=== PATIENT | male | born 1930 | race Caucasian/White ===

== ENCOUNTER 2016-05-21 09:24 | Inpatient (IN) | payer OTHER ==
[2016-05-21] MEDS ORDERED: NS 1,000 ML IV PRN (10:10)
[2016-05-21] MEDS ORDERED: NS 500 ML IV ONE (10:14)
--- NOTE | 2016-05-21 10:15 | PROVIDER DOCUMENTATION ---
HPI-General Adult - General Chief Complaint: Abnormal Lab[s] Stated Complaint: SENT BY MD FOR EVAL/LOW BLOOD Time Seen by Provider: 05/21/16 09:52 Source: patient Allergies/Adverse Reactions: Patient Allergies Allergy/AdvReac Type Severity Reaction Status Date / Time No Known Allergies Allergy Verified 05/21/16 09:42 Home Medications: Home Medication List Medication Instructions Recorded Confirmed Last Taken Type No Home Medications 05/21/16 05/21/16 Unknown History - History of Present Illness -Gen Adult Nature of Presenting Problems: Patient is a 85 y/o M that presents to the ER per request of PCP due to having abnormal labs. Patient had labs draw outpatient yesterday. NA 124, K+5.4, H&H of 6.6 and 20.2. Patient reports being dizzy of late and having diarrhea, denies chest pain or shortness of breath Location of Pain/Injury: reports: none Pain Radiation: reports: no radiation Quality of Pain: reports: none Severity: reports: moderate Onset/Duration: reports: unsure Timing: reports: constant Context/Activities at Onset: reports: none Modifying Factors: improves with: nothing Associated Symptoms: reports: diarrhea. denies: chest pain, fever/chills, genitourinary problems, nausea, shortness of breath, vomiting Similar Symptoms Previously?: Yes Recently seen or treated by another doctor?: Yes Review of Systems - Adult - REVIEW OF SYSTEMS - ADULT Constitutional: denies: chills, fever Eyes: denies: decreased vision, blurred vision, double vision Ears, Nose, Mouth & Throat: denies: ear pain, sinus problem, throat pain Cardiovascular: denies: chest pain, orthopnea, palpitations, syncope Respiratory: denies: dyspnea on exertion, shortness of breath, wheezing Gastrointestinal: reports: diarrhea, rectal bleeding. denies: abdominal pain, nausea, vomiting Genitourinary: reports: no symptoms reported Musculoskeletal: reports: no symptoms reported Integumentary: reports: no symptoms reported Neurological: reports: dizziness/vertigo. denies: headache/migraines, syncope Psychiatric: reports: no symptoms reported Endocrine: reports: no symptoms reported Hematologic/Lymphatic: reports: low blood count. denies: easy bruising Allergic/Immunologic: reports: no symptoms reported All Other Systems: Reviewed and Negative Past History - Adult - PAST MEDICAL HISTORY-ADULT Review of Records: reports: Old Records Reviewed, Nursing Assessment Review, Medications Reviewed Cardiovascular: reports: HTN Gastrointestinal: reports: GI bleed, ulcer Genitourinary: reports: prostate cancer - PRIOR SURGERIES/PROCEDURES Surgical/Procedure History: reports: reviewed, not pertinent - IMMUNIZATION STATUS Childhood Immunizations: See Nurse Assessment Flu Vaccine: See Nurse Assessment - FAMILY HISTORY Family History: reviewed, not pertinent - SOCIAL HISTORY Smoking: non-smoker Living Situation: family Physical Exam-General - PHYSICAL EXAM-ADULT Initial Vital Signs Reviewed: Yes - CONSTITUTIONAL General Appearance: alert, no apparent distress - EYES Eyes: PERRL/EOMI, pale conjunctivae - HEAD, EARS, NOSE, MOUTH & THROAT HENMT: normocephalic/atraumatic, moist mucous membranes, normal ENT inspection - NECK Neck: full range of motion, normal inspection - RESPIRATORY Respiratory: lungs clear, normal breath sounds, no respiratory distress, no accessory muscle use - CARDIOVASCULAR Cardiovascular: tachycardia, systolic murmur (2) - GASTROINTESTINAL (ABDOMEN) Abdominal Exam: normal bowel sounds, non tender, soft, no organomegaly, no pulsatile mass - GENITOURINARY Rectal Exam: blood streaked stool, other (bright red blood (liquid)) - MUSCULOSKELETAL Extremity: normal range of motion, normal inspection, no pedal edema - SKIN Integumentary: warm/dry, pallor - NEUROLOGIC Neurologic: grossly normal, no motor/sensory deficits - PSYCHIATRIC Psych/Mental Status: normal mood/affect, normal thought content, normal thought process, oriented x 3 Progress - PLAN OF CARE/RESULTS Progress/Plan/Lab Results: plan of care-labs, fluids, type and screen one unit of PRBC 1125-hospitalist paged Vital Signs Temp Pulse Resp BP Pulse Ox 05/21/16 10:58 82 93/57 100 05/21/16 09:44 54 L 14 123/49 05/21/16 09:32 98.1 F 103 H 18 88/42 No Known Allergies Allergy (Verified 05/21/16 09:42) No Home Medications 05/21/16 Laboratory 05/21/16 05/21/16 05/21/16 09:47 09:47 09:47 WBC RBC Hgb Hct MCV MCH MCHC RDW Std Deviation Plt Count MPV Immature Gran % (Auto) Neut % (Auto) Lymph % (Auto) [place] % (Auto) Eos % (Auto) Baso % (Auto) Immature Gran # (Auto) Neut # (Auto) Lymph # (Auto) [place] # (Auto) Eos # (Auto) Baso # (Auto) PT INR PTT (Actin FS) Sodium Potassium Chloride Carbon Dioxide Anion Gap BUN Creatinine Estimated GFR/1.73 m2 BUN/Creatinine Ratio Glucose Calculated Osmolality Calcium Iron 12 L TIBC 238 % Saturation 5 Unsat Iron Binding 226 Total Bilirubin AST ALT Alkaline Phosphatase Total Protein Albumin Globulin Albumin/Globulin Ratio Amylase 38 Lipase 19 Blood Type O NEGATIVE Antibody Screen NEGATIVE Crossmatch See Detail 05/21/16 05/21/16 05/21/16 09:47 09:47 09:47 WBC 8.71 RBC 2.38 L Hgb 7.0 L Hct 21.4 L MCV 89.9 MCH 29.4 MCHC 32.7 L RDW Std Deviation 14.4 Plt Count 434 H MPV 9.1 Immature Gran % (Auto) 0.6 H Neut % (Auto) 73.4 Lymph % (Auto) 9.4 L [place] % (Auto) 14.5 H Eos % (Auto) 2.0 Baso % (Auto) 0.1 Immature Gran # (Auto) 0.05 H Neut # (Auto) 6.40 Lymph # (Auto) 0.82 L [place] # (Auto) 1.26 H Eos # (Auto) 0.17 Baso # (Auto) 0.01 PT 12.2 H INR 1.15 PTT (Actin FS) 37.9 H Sodium 127 L Potassium 5.0 Chloride 90 L Carbon Dioxide 17 L Anion Gap 20 BUN 49 H Creatinine 2.6 H Estimated GFR/1.73 m2 24 BUN/Creatinine Ratio 19 Glucose 44 L Calculated Osmolality 265 Calcium 8.8 Iron TIBC % Saturation Unsat Iron Binding Total Bilirubin 0.44 AST 21 ALT 10 Alkaline Phosphatase 140 H Total Protein 6.6 Albumin 2.9 L Globulin 3.7 Albumin/Globulin Ratio 0.8 Amylase Lipase Blood Type Antibody Screen Crossmatch Orders Category Date Time Status Cardiac Monitoring DIRECTED Care 05/21/16 10:13 Active Misc. NRSG Communication Order DIRECTED Care 05/21/16 10:11 Active Saline Loc DIRECTED Care 05/21/16 10:10 Active Transfuse .Give-Transfuse Care 05/21/16 10:11 Active AMYLASE [CHEM] Stat Lab 05/21/16 09:47 Completed CBC WITH ELECTRONIC DIFF [HEME] Stat Lab 05/21/16 09:47 Completed COMPREHENSIVE METABOLIC PANEL [CHEM] Stat Lab 05/21/16 09:47 Completed FERRITIN Routine Lab 05/21/16 09:47 Received FOLATE Routine Lab 05/21/16 11:46 Ordered LIPASE [CHEM] Stat Lab 05/21/16 09:47 Completed LRPC (RED CELLS) [BBK] Stat Lab 05/21/16 09:47 Results OCCULT BLOOD SCREENING [STOOL] Stat Lab 05/21/16 10:03 Completed PROTIME WITH INR [COAG] Stat Lab 05/21/16 09:47 Completed PTT [COAG] Stat Lab 05/21/16 09:47 Completed TYPE & SCREEN [BBK] Stat Lab 05/21/16 09:47 Results UIBC W TOTAL IRON [CHEM] Routine Lab 05/21/16 09:47 Completed UR CREAT RANDOM [URCHEM] Stat Lab 05/21/16 11:51 Uncollected UR SODIUM [URCHEM] Stat Lab 05/21/16 11:51 Uncollected URINALYSIS W/POSS RFLX CULT [URINALYSIS] Stat Lab 05/21/16 11:51 Uncollected VITAMIN B12 Routine Lab 05/21/16 09:47 Received 0.9% Sodium Chloride Inj [Ns] 1,000 ml Med 05/21/16 10:10 Active IV 125 mls/hr 0.9% Sodium Chloride Inj [Ns] 500 ml Med 05/21/16 10:14 Discontinued IV 999 mls/hr 0.9% Sodium Chloride Inj [Ns] 80 ml Med 05/21/16 11:30 Active Pantoprazole [Protonix] 80 mg IV 10 mls/hr Dextrose 5%-0.45% NaCl Inj [D5 1/2 Ns] 500 ml Med 05/21/16 11:27 Active IV 100 mls/hr Dextrose 50% Syringe [D50w Syringe] Med 05/21/16 11:15 Discontinued 25 ml IV NOW ONE Dextrose 50% Syringe [D50w Syringe] Med 05/21/16 11:26 Discontinued 25 ml IV NOW ONE Sucralfate [Carafate Liquid] Med 05/21/16 14:00 Active 1 gm PO Q6H Pulse Oximetry Stat Oth 05/21/16 10:13 Active EKG [EKG] Stat Ther 05/21/16 10:13 Ordered - CONSULTS/PCP/HOSPITALIST Notification #1 *Consult/PCP/Hospitalist*: hospitalist Time Discussed: 12:21 Consult Disposition: Will see in ED, Admit Departure - Departure Time of Disposition Order: 12:20 DIAGNOSIS: Lower GI bleed, Hypoglycemia, Renal insufficiency Anemia Qualifiers: Anemia type: other cause Other causes of anemia: other cause, not classified Qualified Code(s): D64.89 - Other specified anemias Hypotension Qualifiers: Hypotension type: other hypotension type Qualified Code(s): I95.89 - Other hypotension Disposition: ADMITTED INPATIENT 09 Certified Medical Emergency: Emergent Condition: Stable Referrals: Kathi Liu MD [Primary Care Provider] - - Critical Care Note Total Time (mins): 40 Critical Care Statement: This patient required my direct personal management to treat or rule out processes, the absence of which, could potentiallly result in sudden, clinically significant life or limb threatening deterioration. Attestation - Scribe Verification/Attestation Scribe:: Leoncio Bruno Acting as Scribe for:: Patrick Branham Scribe documention review:: This chart was documented by a scribe and accurately reflects the service the provider performed and the decisions made by the provider. Physician Attestation - Physician Attestation I, the provider, attest to the following statement:: Patrick Branham Physician documentation Attestation:: This documentation recorded by the scribe accurately reflects the service I personally performed and the decisions made by me.
[2016-05-21 10:36] LABS: BASO% 0.1 % (0.0-0.8); EOS# 0.17 X1000 (0.0-0.7); HEMATOCRIT 21.4 % (42.0-52.0); IMM GRAN# 0.05 X1000 (0.0-0.04); IMM GRAN% 0.6 % (0.0-0.5); LYMPH# 0.82 X1000 (1.2-3.4); LYMPH% 9.4 % (20.5-51.1); MANUAL DIFF NEEDED? NO; MCH 29.4 PG (27-31); MCHC 32.7 g/dL (33-37); MCV 89.9 FL (81-99); MONO# 1.26 X1000 (0.11-0.59); MONO% 14.5 % (1.7-9.3); MPV 9.1 FL (7.4-10.4); NEUT% 73.4 % (42.2-75.2); PLT 434 X1000 (130-400); RBC 2.38 XMIL (4.7-6.1)
[2016-05-21 10:42] LABS: INR 1.15; PROTIME 12.2 Seconds (9.2-11.7); PTT 37.9 Seconds (22.0-36.0)
[2016-05-21 11:10] LABS: ALBUMIN 2.9 g/dL (3.5-5.0); CALCIUM 8.8 mg/dL (8.8-10.2); TOTAL BILIRUBIN 0.44 mg/dL (0.20-1.00); TOTAL PROTEIN 6.6 g/dL (6.3-8.3)
[2016-05-21] MEDS ORDERED: D50W SYRINGE IV ONE ×2 (11:15→11:26)
[2016-05-21] MEDS ORDERED: D5 1/2 NS 500 ML IV ONE (11:27)
[2016-05-21 12:12] LABS: AMYLASE 38 U/L (20-200); LIPASE 19 U/L (13-60)
[2016-05-21] MEDS: PROTONIX 80 MG in NS 80 ML IV SCH ×2 (12:13→22:23)
[2016-05-21 12:15] LABS: IRON SATURATION 5 %; TIBC 238 ug/dL; TOTAL IRON 12 ug/dL (53-167); UNBOUND IRON 226 ug/dL (112-346)
[2016-05-21] MEDS ORDERED: D50W SYRINGE IV PRN (12:32)
[2016-05-21 13:03] LABS: FERRITIN 129 ng/mL (30-400)
[2016-05-21 13:25] LABS: URINE SOURCE CATH
[2016-05-21 13:29] LABS: BILIRUBIN URINE NEGATIVE (NEGATIVE); BLOOD URINE TRACE (NEGATIVE); GLUCOSE URINE NEGATIVE (NEGATIVE); LEUKOCYTES URINE MODERATE (NEGATIVE); NITRITE URINE POSITIVE (NEGATIVE); PH URINE 5.5; PROTEIN URINE TRACE mg/dL (NEGATIVE); SP GRAVITY URINE 1.005; TURBIDITY URINE HAZY (CLEAR); UROBILINOGEN URINE NORMAL (NORMAL)
[2016-05-21 13:31] LABS: URINE MICRO REVIEW NEEDED? YES
--- NOTE | 2016-05-21 13:36 | Diag Imaging Result Document ---
PROCEDURE NAME: ABDOMEN/PELVIS W/O CONTRAST - 05/21/2016 CT RENAL STONE SEARCH WITHOUT CONTRAST: TECHNIQUE: A dose reduction protocol was used. COMPARISON: No comparison exam. FINDINGS: There is no evidence of hydronephrosis. There is no renal stone identified. There are multiple bilateral renal lesions. The largest lesion arises at the upper left kidney and measures 5.3 cm. Most of these lesions are of low-density and are suggestive of cysts. A few lesions are mildly hyperdense. There is a suprapubic catheter which extends into the urinary bladder. The urinary bladder pantoja appear irregularly thickened with hazy external margins. The possibility of urinary bladder cystitis cannot be excluded. There is no evidence of bowel obstruction. There is apparent wall thickening along the descending colon with haziness of surrounding fat, suspicious for colitis. This may extend to the proximal portion of the sigmoid colon. There is mild diverticulosis at the sigmoid colon but there is no indication of diverticulitis. There is no abscess identified. There is no free air seen. There are a couple small calcified gallstones in the dependent portion of gallbladder. Gallbladder is borderline distended, but there is no pericholecystic inflammation identified. There is borderline retroperitoneal adenopathy. There are lumbar spine degenerative changes and bilateral L5 pars interarticularis defects noted. There are calcified pleural plaques noted at the base of the chest. IMPRESSION: 1. No evidence of renal stone or hydronephrosis. 2. Multiple bilateral renal lesions, most of which likely represent cysts. Follow-up renal ultrasound is recommended. 3. Suprapubic catheter extending into the urinary bladder. Diffuse irregular thickening of urinary bladder pantoja with hazy external margins. The possibility of urinary bladder cystitis cannot be excluded. 4. Descending colitis. No abscess. No free air. 5. Couple of small gallstones in gallbladder. No pericholecystic inflammation. 6. Borderline retroperitoneal adenopathy. 7. Lumbar spine degenerative changes and bilateral L5 pars interarticularis defects noted.
[2016-05-21 13:41] LABS: UR CREAT RANDOM 54.1 mg/dL (14-26)
--- NOTE | 2016-05-21 13:57 | HISTORY AND PHYSICAL ---
PRIMARY CARE PROVIDER: Dr. Liu. PRIMARY UROLOGIST: Dr. Guthrie. CHIEF COMPLAINT: Dizziness. HISTORY OF PRESENT ILLNESS: Mr. Obrien is an 85-year-old male. He is in no acute distress. He is able answer most questions appropriately. He has a past medical history of duodenal ulcer, hypertension, prostate cancer with radiation treatment, and CKD , who apparently has been having some spells of dizziness. He went to his primary care provider who ran laboratory studies. In the laboratory studies it showed that he had a low hemoglobin and hematocrit, low sodium level, a high potassium level with signs of dehydration, and he was instructed to come here to seek further treatment. He appears very pale in color. A stool sample that was obtained showed that it was positive for occult blood. Hemoglobin and hematocrit here on admission shows a hemoglobin of 7 and hematocrit 21. Blood pressure is somewhat on the lower side , reading anywhere from 80s to 90s. He also had a low blood sugar. During the lab work it was 44 and on fingerstick it was 22. He has received an amp of D50. Apparently he also has a suprapubic catheter that the patient states has had a significant amount of blood, although on observation the urine is mildly darker but not hematuric. The patient also states he has had a 30 pound weight loss over the last year, decreased appetite with nausea and vomiting when he tries to eat. The last time he ate was yesterday. He also states that he has bad diarrhea but he states that it is also brown in color. He denies having blood in his stool or black tarry stools. Denies fever or chills. Denies pain. His abdomen is soft, nondistended. The suprapubic cath site is mildly red around the insertion site but does not appear to be infected. He is wearing a diaper that has no signs of blood. We will consult GI for GI work up. Start him on a Protonix drip. We will consult Dr. Guthrie with urology who has been seeing him with his suprapubic catheter. Transfuse 2 units of blood. We will transfer him to [facility] given his blood pressures 80s to 90s systolic and this is likely secondary to dehydration. The patient has had some spells of dizziness that he states that causes blackness or blurriness in his eyes. He denies ever fully passing out. PAST MEDICAL HISTORY: Hypertension, prostate cancer with radiation treatment, peptic ulcer disease with a duodenal ulcer in the past, CKD stage 3. PAST SURGICAL HISTORY: [place] tooth extraction, prostate biopsy, vocal cord operation, placement of suprapubic catheter, has had some strictures in the urethra and bladder that were incised. SOCIAL HISTORY: Denies tobacco, alcohol, or illicit drug use. He also uses a walker or a cane to ambulate. FAMILY HISTORY: Noncontributory. REVIEW OF SYSTEMS: Fourteen point review of systems were complete and all were negative except for those mentioned in the above HPI. ALLERGIES: No known drug allergies. HOME MEDICATIONS: Currently none are listed. LABORATORY DATA: White blood cells 8,000, hemoglobin 7, hematocrit 21.4, platelet count 434,000. INR 1.15, PTT 37.9. Sodium 127, potassium 5.0, BUN 49, creatinine 2.6, glucose 44, calcium 8.8. Iron is 12, total iron binding capacity is 238, percent saturation is 5, unsaturated iron binding is 226. Total bilirubin 0.44, AST 21, ALT 10, alkaline phosphatase 140, albumin is 2.9. Amylase 38, lipase 19. Urinalysis pending. Urine sodium and urine creatinine pending. IMAGING: Abdominal and pelvic CT without contrast has been ordered and pending. PHYSICAL EXAMINATION: VITAL SIGNS: Temperature 98.1 degrees, heart rate 84, blood pressure 99/49, O2 saturation 100% on room air. He is 5 feet 8 inches tall, 170 pounds, BMI 25.8. GENERAL: Mr. Obrien is an 85-year-old male, who is in no acute distress. He is able to answer most questions appropriately. SKIN: Very pale. HEENT: Atraumatic, normocephalic. Pupils equal, round, reactive to light. Extraocular movements intact. NECK: No JVD or carotid bruits noted. CARDIOVASCULAR: S1, S2. Regular rate and rhythm. No rubs, gallops, murmurs. PULMONARY: Clear to auscultation. Bilateral breath sounds. No accessory muscle use or work of breathing noted. GI: Soft, nontender, nondistended. Positive bowel sounds x4. : Suprapubic catheter in place with dark clear yellow urine output per leg catheter bag. Insertion site mildly red but no signs of infection. EXTREMITIES: No edema noted. There are +2 dorsalis and radial pulses. NEUROLOGIC: A O x3. Moves all extremities equally. ASSESSMENT AND PLAN: 1. Acute blood loss anemia secondary to gastrointestinal bleed and possibly hematuria. He will receive 2 units of blood. We will consult Dr. Lino as he was the doctor that saw him in the past for a duodenal ulcer. Start him on a Protonix drip, Carafate. Keep him NPO for possible endoscopy and do serial hemoglobin and hematocrit. 2. History of prostate cancer, now with suprapubic catheter. He receives radiation treatments by Dr. Bynum as outpatient. Prostate is very enlarged. Patient states that he has had a significant amount of blood loss through his suprapubic catheter but there are no obvious signs of hematuria in the urine. We are awaiting urinalysis as it was not obtained on admission. So will obtain it now to evaluate blood count in the urine. We will also consult Dr. Guthrie as he is his urologist. 3. Severe protein calorie malnutrition. Apparently the man has lost 30 pounds over the last year. He states that he is unable to hold down food. It makes him nauseous and he throws it up. We will do a nutritional consult once he is able to start taking in p.o. Albumin level is low. 4. Diarrhea. Patient states that he has diarrhea and that it is normal in color , although stool sample that was obtained via the ER physician was bright red. So diarrhea is likely secondary to #1. 5. Acute kidney injury on chronic kidney disease stage 3. Likely secondary to dehydration. He will receive IV fluid hydration. 6. Hypoglycemia. Could be secondary to the fact that he has not eating. He states he last ate yesterday. There is no history of him having diabetes. Will check a hemoglobin A1c. He will be on D5W with normal saline drip. Will do q.2 hour blood glucoses and p.r.n. D50 as needed. 7. Hyponatremia secondary to dehydration. IV fluids. 8. Thrombocytosis. This is likely inflammatory. 9. Iron-deficiency anemia. 10. Deep venous thrombosis prophylaxis. SCDs. 11. Gastrointestinal prophylaxis. He is on a proton pump inhibitor drip. Patient seen and examined. Agree with BAYRON note. It reflects my assessment and plan. Dictated by BAYRON Blue for Javi Thurston MD [facility]
[2016-05-21 14:05] LABS: URINE CASTS NONE SEEN; URINE CRYSTALS NONE SEEN; URINE SMALL ROUND CELLS NONE SEEN
[2016-05-21 14:06] LABS: URINE CULTURE NEEDED? YES
[2016-05-21 14:12] LABS: COLOR STRAW
[2016-05-21 14:17] LABS: UR EPITHELIAL CELLS <10 /HPF (<10); URINE BACTERIA NEGATIVE /HPF; URINE RBC <10 /HPF (<10); URINE WBC 20-40 /HPF (<10)
[2016-05-21 14:44] LABS: HEMOGLOBIN A1C 4.4 % (4.8-6.0)
--- NOTE | 2016-05-21 14:44 | Diag Imaging Result Document ---
PROCEDURE NAME: CHEST-2 VIEWS - 05/21/2016 CHEST X-RAY, 2 VIEWS: COMPARISON: 08/01/2013. FINDINGS: There are similar appearing calcified pleural plaques. Otherwise, no focal infiltrates, pneumothorax, or pleural effusion. Heart size and pulmonary vascularity is normal. 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 No acute disease or change from prior.
[2016-05-21] MEDS ORDERED: D5 NS 1,000 ML IV ONE (16:09)
[2016-05-21] MEDS ORDERED: ZOFRAN IV PRN (16:09)
[2016-05-21 17:21] LABS: HEMATOCRIT 24.7 % (42.0-52.0); HEMOGLOBIN 8.3 g/dL (14.0-18.0)
[2016-05-21] MEDS: CARAFATE LIQUID PO SCH ×2 (17:52→20:40)
[2016-05-21] MEDS: ZOSYN 3.375 GM/NS 50 ML IV SCH ×2 (17:52→21:42)
--- NOTE | 2016-05-21 18:45 | ECHO REPORT ---
ORDER DATE: 05/21/2016 INTERPRETING PHYSICIAN: Dr. Barajas CLINICAL INDICATIONS: [id number]-old male with near syncope. M-MODE MEASUREMENTS: Right ventricle: 2.6 cm. Left ventricle end diastole: 5.1 cm. Left ventricle end systole: 3.2 cm. Posterior wall: 0.7 cm. Interventricular septum: 0.7 cm. Left atrium: 4.3 cm. Aortic root: 3.3 cm. SUMMARY OF 2-DIMENSIONAL IMAGING: This study appears to be technically difficult. Global left ventricular systolic function is normal. Ejection fraction estimated at 55 to 60%. Left atrium is borderline enlarged. Mitral valve shows mild degree of regurgitation. Pulse wave Doppler of mitral inflow is normal. Tissue Doppler of septal and lateral mitral annulus averages 10 cm. There is no diastolic dysfunction. The aortic valve looks grossly normal. Color flow mapping unremarkable. Tricuspid valve shows mild degree of regurgitation. Inferior vena cava appears to be mildly enlarged. Pulmonary pressure estimated to be in the range of 36 to 41 mmHg. Pulmonic valve looks normal. Color flow mapping unremarkable. There is no pericardial effusion, masses, or thrombus. Clinical correlation is recommended. [facility]
--- NOTE | 2016-05-21 19:40 | CONSULTATION ---
DATE OF CONSULTATION: 05/21/2016 ATTENDING AND REFERRING PHYSICIAN: Hospitalist. HISTORY OF PRESENT ILLNESS: This 85-year-old male was admitted with severe symptomatic anemia. The patient has been followed in the Urology Clinic for many years. He has a history of elevated PSA to 17.5. 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 He completed radiation therapy in May 2012. He was last seen in the Urology Clinic on 05/14/2016 and his PSA was 0.02. 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 He has undergone multiple cystoscopic exams with incision of the strictured areas and dilation in the clinic of these strictures. He decided to forego further dilations and had a suprapubic tube placed in February 2016. The patient states it is much better having the suprapubic tube. He states he has seen blood in the urine several times since then, but none for the last few days. He states he became very dizzy and disoriented and weak. He was seen by his family physician and sent to the emergency room. His hemoglobin was 7. He has a history of ulcer disease. The patient has been treated with multiple antibiotics over the last few months. A culture obtained in the Urology Clinic grew yeast. He was placed on Diflucan 50 mg a day which was completed about 2 weeks ago. When he was seen in the Urology Clinic last week, he felt he was doing well and did not feel weak or dizzy. PAST MEDICAL HISTORY: As noted in the HPI, hypertension, chronic kidney disease. PAST SURGICAL HISTORY: Transrectal prostate ultrasound and biopsies x2. Radiation therapy for prostate cancer. [place] teeth extraction. Vocal cord surgery. Direct visual internal urethrotomy, and placement of a suprapubic tube. CURRENT MEDICATIONS: Documented on the chart. SOCIAL HISTORY: No tobacco or alcohol use. ALLERGIES: No known drug allergies. REVIEW OF SYSTEMS: He states usually he is in good health. He denies any chest pains or pulmonary problems. He states his urine has been clear. He is not having any problems with the suprapubic tube. It was last changed on 05/14/2016 at his last Urology Clinic visit. He denies any problems with diabetes, strokes, or seizures. PHYSICAL EXAMINATION: General: A mildly obese, age apparent, normally developed, white male, oriented in all ways and cooperative. HEENT: Normal for age. Lungs: Clear. Cardiovascular: Regular rate and rhythm. Abdomen: Protuberant soft, nontender. No hepatosplenomegaly or masses. Normal bowel sounds. : Normal male. Both testes are down. Scrotal exam is normal. His suprapubic tube is in place draining straw-colored urine. Rectal: Deferred today. On 05/14, it revealed a firm, flat prostate consistent with previous radiation. Extremities: No clubbing, cyanosis, or edema. Neuro: No focal deficits. DIAGNOSTIC DATA: Laboratory evaluation latest hemoglobin after receiving a unit of blood was 8.3, hematocrit 24.7. Serum chemistries had a sodium of 127, potassium 5, chloride 90, bicarb of 17, BUN 49, creatinine 2.6. His baseline creatinine is around 1.5 to 1.6. Urinalysis had straw colored urine, positive nitrite, moderate leukocytes, 20-40 white cells. Less than 10 red cells, less than 10 epithelial cells. This urine is consistent with a chronic indwelling catheter. CT scan without contrast of the abdomen and pelvis revealed multiple low-density lesions in each kidney consistent with renal cysts, Possible colitis, diverticulosis, but no evidence of diverticulitis, indwelling suprapubic tube. IMPRESSION: 1. Severe symptomatic anemia. Etiology not clear. 2. Neurogenic bladder with suprapubic tube in place draining straw-colored urine. 3. Bilateral renal cysts. RECOMMENDATIONS: Recommend a gastrointestinal evaluation as is being done. Renal ultrasound. I will follow. Thank you for this consultation.
[2016-05-22] MEDS: CARAFATE LIQUID PO SCH ×4 (02:14→21:51)
--- NOTE | 2016-05-22 02:37 | HISTORY AND PHYSICAL ---
ADDENDUM REPORT: ASSESSMENT AND PLAN: Urinalysis is positive for urinary tract infection. Has nitrates in it. White blood cells, so will do Zosyn for now and follow up on the urine culture. Also, abdominal/pelvic CT showed that he had a descending colitis, so again, we will continue with Zosyn and will send off for stool for Clostridium difficile rule out. Dictated by BAYRON Blue for Javi Thurston MD
[2016-05-22] MEDS: ZOSYN 3.375 GM/NS 50 ML IV SCH ×4 (04:55→21:52)
[2016-05-22 05:48] LABS: BASO% 0.1 % (0.0-0.8); EOS# 0.02 X1000 (0.0-0.7); EOS% 0.3 % (0.0-10.0); HEMATOCRIT 24.9 % (42.0-52.0); HEMOGLOBIN 8.4 g/dL (14.0-18.0); IMM GRAN# 0.05 X1000 (0.0-0.04); IMM GRAN% 0.6 % (0.0-0.5); LYMPH# 0.56 X1000 (1.2-3.4); LYMPH% 7.1 % (20.5-51.1); MANUAL DIFF NEEDED? YES; MCH 29.3 PG (27-31); MCHC 33.7 g/dL (33-37); MCV 86.8 FL (81-99); MONO# 1.49 X1000 (0.11-0.59); MONO% 18.8 % (1.7-9.3); MPV 9.1 FL (7.4-10.4); NEUT% 73.1 % (42.2-75.2); PLT 410 X1000 (130-400); RBC 2.87 XMIL (4.7-6.1)
[2016-05-22 06:13] LABS: INR 1.2; PROTIME 12.7 Seconds (9.2-11.7); PTT 39.1 Seconds (22.0-36.0)
[2016-05-22 06:24] LABS: BANDS 8 % (0-1); LYMPHS 12 % (21-51); MONO 16 % (1-9)
[2016-05-22] MEDS: PROTONIX 80 MG in NS 80 ML IV SCH ×2 (06:41→21:53)
[2016-05-22 06:56] LABS: ALBUMIN 2.4 g/dL (3.5-5.0); POTASSIUM 4.2 mmol/L (3.5-5.1); TOTAL BILIRUBIN 0.73 mg/dL (0.20-1.00); TOTAL PROTEIN 5.8 g/dL (6.3-8.3)
[2016-05-22 06:58] LABS: MAGNESIUM 1.1 mg/dL (1.5-2.7)
--- NOTE | 2016-05-22 07:31 | EKG Report ---
Test Performed on : 05/22/2016 06:54:23 AM Test Reason : chest pain Blood Pressure : / mmHG Vent. Rate : 081 BPM Atrial Rate : 081 BPM P-R Int : 188 ms QRS Dur : 144 ms QT Int : 410 ms P-R-T Axes : 012 -18 069 degrees QTc Int : 476 ms Normal sinus rhythm. Left bundle branch block Abnormal ECG When compared with ECG of 01-NOV-2015 14:33, No significant change was found Confirmed by Mela BROWN, Jose Vinson ([id number]) on 05/24/2016 5:18:57 PM
--- NOTE | 2016-05-22 09:06 | Diag Imaging Result Document ---
PROCEDURE NAME: US RENAL 2 (RETROPER) COMPLETE - 05/22/2016 RENAL ULTRASOUND: FINDINGS: There are multiple cysts present in both kidneys. The largest on the right is 2.4 cm in diameter and on the left there is a 5.1-cm cyst over the upper pole. The right kidney is 10.2 x 4.4 x 5.47 cm. The left is 11.2 x 5 x 6.1 cm. There is no evidence of hydronephrosis. There are no demonstrated solid masses. Some of these lesions did demonstrate calcification in their pantoja on the CT scan of 05/21/2016, most notably the cyst posteriorly located on the left. This would be a Bosniak 2 lesion. IMPRESSION: No evidence of obstructive uropathy. Polycystic kidneys.
[2016-05-22] MEDS: CELEXA PO SCH (09:12)
[2016-05-22] MEDS ORDERED: MYLICON DROPS (DOSE) MISC ONE (13:32)
[2016-05-22] MEDS ORDERED: DIPRIVAN 1% ONE (14:03)
--- NOTE | 2016-05-22 14:05 | PROGRESS NOTE ---
DATE: 05/22/2016 SUBJECTIVE: Patient is feeling fine. Able to walk around with assistance. Denies any hematemesis or blood in the stools. Denies any sensation of lightheadedness. OBJECTIVE: Vital Signs: Temperature 97.7 degrees, heart rate 73, respiratory rate 18, blood pressure 107/50, O2 saturation 100% on room air. General examination: This is an 85-year-old male, lying in bed in no acute distress. HEENT: Head is normocephalic, atraumatic. Anicteric sclerae and pale conjunctivae. Mucous membranes moist. Neck: Supple. No JVD noted. No carotid bruits. No lymphadenopathy. No thyromegaly. Cardiovascular exam: S1, S2 heard. No murmurs, gallops, or rubs. Regular rate and rhythm. Respiratory exam: Clear bilaterally to auscultation. No work of breathing or using accessory muscles. Abdomen: Soft, nontender to palpation. Nondistended. Bowel sounds present. No organomegaly. Extremities: No clubbing, cyanosis, or edema. Peripheral pulses present in both legs. Genitourinary: Suprapubic catheter in place. Neurological exam: Patient able to move 4 extremities. Alert and oriented x3. LABORATORY DATA: White cell count 7.93, hemoglobin 8.4, hematocrit 24.9, platelets 410. Sodium 136, potassium 4.2, chloride 94, bicarbonate 34, creatinine 2.0. ASSESSMENT AND PLAN: 1. Acute blood loss anemia most probably secondary to gastrointestinal bleeding. The patient has received 2 units of blood. We are still waiting for the consultation from Dr. Lino. The patient is on Protonix and Carafate. He is on nothing by mouth in anticipation for possible procedure. We will continue checking complete blood count daily. 2. History of prostate cancer with suprapubic catheter. Patient has been evaluated by Dr. Guthrie here in the hospital. From his standpoint, he just recommends to have a renal ultrasound, which basically shows that everything is okay. 3. Severe protein calorie malnutrition. We will see what the note from gastroenterology has to say regarding endoscopy. 4. Diarrhea. That condition is stopped. 5. Acute on chronic kidney disease stage III. Actually, the creatinine is getting better. We will continue checking basic metabolic panel daily. 6. Hypoglycemia. Patient has been having low sugars even though he is not taking any medication. At this time, definitely will continue checking Accu-Chek every 4 hours. It seems like this condition is improving. 7. Iron deficiency anemia, aware.
--- NOTE | 2016-05-22 14:30 | OPERATIVE NOTE ---
PROCEDURE DATE: 05/22/2016 ATTENDING PHYSICIAN: Dr. Armstrong. TITLE OF PROCEDURE: Esophagogastroduodenoscopy with esophageal dilation. HISTORY OF PRESENT ILLNESS: 1. Melena. 2. Anemia. 3. Positive occult. 4. Anemia requiring 2 units of blood. 5. Previous history of peptic ulcer disease in the duodenal bulb in 2015 status post cautery by Dr. Lino. 6. UTI currently on treatment. 7. Evidence of descending colitis and negative C. difficile toxin on workup. POSTOPERATIVE DIAGNOSES: 1. Normal proximal middle esophagus. 2. Schatzki's ring in distal esophagus which was dilated with 52-Japanese García dilator. 3. Z-line was at 40 cm. 4. Hiatal hernia cms sliding type 5. Mild gastrin in gastric antrum. 6. Normal fundus, cardia, incisura. 7. Normal duodenal bulb and second portion of the duodenum. No evidence of active bleeding, fresh or old blood noted in entire EGD. ESTIMATED BLOOD LOSS: None. COMPLICATIONS: None. ANESTHESIA: Monitored anesthesia care per the anesthesiologist. SPECIMEN: None. After informed consent, the patient explained the risks, benefits, indications, alternatives of the procedure for EGD. The risks of the procedure including infection, bleeding , pain, trauma to site of perforation explained to the patient among others and he acknowledged and agreed to proceed. The patient also was turned in the left lateral position and a bite block was placed. After adequate monitoring, the scope was then all the way to the second portion of the esophagus and it was normal. Proximal 3rd distal revealed evidence of Schatzki's ring causing resistance of the scope. The Z-line was at 40 cm. There was evidence of a 2 cm sliding hiatal hernia. Colon showed evidence of erythema in the gastric antrum suggesting mild gastritis. Retroflexion revealed normal fundus, cardia, incisura. The scope was then removed showing normal bulb and second portion. There was no evidence of any active bleeding, fresh or old blood or any evidence of any ulcers or AVMs noted. The scope was withdrawn into the stomach. The air was aspirated as the scope withdrawn. The patient underwent García dilation with 52-Japanese successfully. The patient tolerated this well and left the OR in stable condition. I discussed findings with the patient's family (Daughter) by phone and all questions were answered. RECOMMENDATIONS: 1. The patient will be following gastroesophageal reflux life changes. 2. The patient will be on Protonix once daily for 3 months for gastritis and reflux disease and then wean down to Zantac 150 mg at bedtime as needed. 3. Will keep the patient on clear liquid diet and start him on GoLYTELY and schedule for colonoscopy tomorrow. This will be to evaluate the patient's anemia requiring blood transfusion and evidence of DC colitis on imaging. 4. Further recommendations to follow pending this. MTDD
[2016-05-22] MEDS ORDERED: GOLYTELY PO ONE (14:45)
[2016-05-22] MEDS ORDERED: XYLOCAINE-MPF 2% ONE (14:46)
[2016-05-22] MEDS ORDERED: PHENERGAN IV PRN (17:29)
[2016-05-22] MEDS ORDERED: SODIUM CHLORIDE 0.9% INJ PRN (17:29)
[2016-05-23] MEDS: CARAFATE LIQUID PO SCH ×4 (01:59→22:28)
[2016-05-23] MEDS: ZOSYN 3.375 GM/NS 50 ML IV SCH ×4 (04:03→22:29)
[2016-05-23] MEDS: PROTONIX 80 MG in NS 80 ML IV SCH (08:30)
[2016-05-23] MEDS ORDERED: MYLICON DROPS (DOSE) MISC ONE (09:57)
[2016-05-23] MEDS ORDERED: DIPRIVAN 1% ONE (10:22)
[2016-05-23] MEDS ORDERED: XYLOCAINE-MPF 2% ONE (10:37)
[2016-05-23 11:01] LABS: MANUAL DIFF NEEDED? NO
[2016-05-23 11:02] LABS: BASO% 0.5 % (0.0-0.8); EOS# 0.08 X1000 (0.0-0.7); EOS% 1.3 % (0.0-10.0); HEMATOCRIT 27.7 % (42.0-52.0); HEMOGLOBIN 9.5 g/dL (14.0-18.0); IMM GRAN# 0.08 X1000 (0.0-0.04); IMM GRAN% 1.3 % (0.0-0.5); LYMPH# 0.73 X1000 (1.2-3.4); LYMPH% 11.8 % (20.5-51.1); MCH 29.9 PG (27-31); MCHC 34.3 g/dL (33-37); MCV 87.1 FL (81-99); MONO# 0.85 X1000 (0.11-0.59); MONO% 13.8 % (1.7-9.3); MPV 8.9 FL (7.4-10.4); NEUT% 71.3 % (42.2-75.2); PLT 459 X1000 (130-400); RBC 3.18 XMIL (4.7-6.1)
[2016-05-23] MEDS: CELEXA PO SCH (11:03)
[2016-05-23 11:26] LABS: CALCIUM 8.5 mg/dL (8.8-10.2); POTASSIUM 3.9 mmol/L (3.5-5.1)
--- NOTE | 2016-05-23 15:29 | PROGRESS NOTE ---
DATE: 05/23/2016 SUBJECTIVE: Patient reports feeling fine. Denies any abdominal pain, any blood in the stools or vomiting blood. OBJECTIVE: Vital Signs: Temperature 98.1 degrees, heart rate 67, respiratory rate 17, blood pressure 113/45, O2 saturation 100% on room air. General Examination: This is an 85-year-old male, lying in bed in no acute distress. HEENT: Head is normocephalic, atraumatic. Anicteric sclerae and pale conjunctivae. Mucous membranes moist. Neck: Supple. No JVD noted. No carotid bruits. No lymphadenopathy. No thyromegaly. Cardiovascular exam: S1, S2 heard. No murmurs, gallops, or rubs. Regular rate and rhythm. Respiratory exam: Clear bilaterally to auscultation. No work of breathing or using accessory muscles. Abdomen: Soft, nontender to palpation. Nondistended. Bowel sounds present. No organomegaly. Extremities: No clubbing, cyanosis, or edema. Peripheral pulses present in both legs. Neurological exam: Patient able to move 4 extremities. Alert and oriented x3. LABORATORY DATA: White cell count 6.17, hemoglobin 9.5, hematocrit 27.7, platelets of 459. BMP shows creatinine 1.4. ASSESSMENT AND PLAN: 1. Anemia secondary to possible gastrointestinal bleeding. Patient has been evaluated by Dr. Melendez. Patient underwent upper endoscopy as per Dr. Melendez, and then he did fine. Normal duodenal bulb. No evidence of active bleeding or fresh or old blood noted in the entire esophagogastroduodenoscopy. They did a colonoscopy today; the report is still pending. Hemoglobin has been stable so far since admission. Patient has received 2 units of blood so far. At this point, if hemoglobin is stable tomorrow we may let him go and if colonoscopy is okay too. 2. History of prostate cancer with suprapubic catheter. The patient has been evaluated by Dr. Guthrie from urology, and he is stable from his standpoint. 3. Severe protein calorie malnutrition. At least the upper endoscopy did not show anything to justify this problem. We will follow the recommendations. We will monitor this patient closely. 4. Acute on chronic kidney disease stage III. Creatinine continues to improve. We will continue checking basic metabolic panel daily. 5. Hypoglycemia. Glucose is back to normal. Patient is not on any anti diabetic medications oral. We will continue now with checking Accu-Chek before meals and also at bedtime. 6. Iron-deficiency, aware.
--- NOTE | 2016-05-23 16:19 | OPERATIVE NOTE ---
PROCEDURE DATE: 05/23/2016 PROCEDURE: Ileocolonoscopy with colonic biopsy. PREOPERATIVE DIAGNOSES: 1. Melena. 2. Anemia. 3. History of prostate cancer, status post radiation and suprapubic catheter by Dr. Guthrie. 4. History of new onset of colitis seen on CT scan in the left colon. 5. Negative esophagogastroduodenoscopy. 6. History of peptic ulcer disease in 2014. POSTOPERATIVE DIAGNOSES: 1. Normal terminal ileum. 2. Diverticulosis in the colon in the left side more than the right side. 3. Colitis starting in the transverse colon, and extending all the way to the sigmoid colon in the form of superficial ulcerations, colonic mucosal edema, and erythema, status post biopsy ulcer for CMV colitis. 4. 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 ESTIMATED BLOOD LOSS: Minimal. COMPLICATIONS: None. ANESTHESIA: Monitored anesthesia care per the anesthesiology service. SPECIMENS: Left colonic biopsies sent to surgical pathology to evaluate for CMV colitis. DESCRIPTION OF PROCEDURE: After informed consent from the patient, explaining the risks, benefits, indications, alternatives of the procedure to the patient. The patient prepared for colonoscopy. The risks of the procedure, including infection, bleeding, pain, trauma to the surrounding structures, perforation, and were explained to the patient among others and he acknowledged understanding and agreed to proceed. The patient was brought to the OR, turned in the left lateral position. Rectal exam was performed, which revealed normal rectal tone, no masses felt, and no blood on the examining finger. After adequate monitored anesthesia care, the lower scope introduced to the anal orifice, traversed all the way to the terminal ileum. The terminal ileum appeared normal. The cecum and ascending colon appeared normal. The colitis started in the proximal transverse colon in the form of colonic edema and superficial ulcerations, but it became more extensive in the descending colon with more confluent ulcerations and mucosal edema and erythema. This was biopsied, evaluated for CMV colitis. This ended abruptly at the sigmoid colon. In the rectum, there was evidence of erythema, AVMs, erosions, and contact oozing suggesting radiation proctitis. There was evidence of some ulcerations at the anal area or in the distal rectum area, also at the site of proctitis. The air was removed as the scope withdrawn. The patient tolerated the procedure well is currently monitored in the OR in stable condition. Of note, we also saw some scattered polyps in the colon, which were not removed as the patient is anemic and has colitis. The patient was stable and is currently monitored in the OR in stable condition. Discussed with patient's daughter by phone and all questions were answered. RECOMMENDATIONS: 1. The patient will be on GI soft diet. 2. The patient will be on iron-C 1 capsule p.o. b.i.d. for 3 months. 3. The patient will be on Centrum Silver 1 capsule p.o. once daily. 4. The patient will be on diverticulosis diet. Avoid corn, nuts, seeds in the diet. 5. The patient will benefit from fiber like Metamucil once daily. 6. Patient will follow up with our clinic in 4 weeks of discharge to review the colonic biopsies. 7. We will start him on Anusol HC cream for rectal b.i.d. 8. May need APC of Radiation proctitis if continues to be Anemic. 9. Further recommendations to follow. MTDD
[2016-05-23] MEDS: ANUSOL-HC CREAM PR SCH (22:27)
[2016-05-23] MEDS: ICAR-C PO SCH (22:28)
[2016-05-23] MEDS: CULTURELLE PO SCH (22:29)
[2016-05-24] MEDS: CARAFATE LIQUID PO SCH ×2 (01:55→11:24)
[2016-05-24 05:42] LABS: MANUAL DIFF NEEDED? NO
[2016-05-24] MEDS: ZOSYN 3.375 GM/NS 50 ML IV SCH ×2 (05:43→12:28)
[2016-05-24 06:09] LABS: CALCIUM 8.3 mg/dL (8.8-10.2); POTASSIUM 3.4 mmol/L (3.5-5.1)
[2016-05-24 06:52] LABS: BASO% 0.3 % (0.0-0.8); EOS# 0.07 X1000 (0.0-0.7); EOS% 1.1 % (0.0-10.0); HEMATOCRIT 25.9 % (42.0-52.0); HEMOGLOBIN 8.7 g/dL (14.0-18.0); IMM GRAN# 0.11 X1000 (0.0-0.04); IMM GRAN% 1.7 % (0.0-0.5); LYMPH# 1.04 X1000 (1.2-3.4); LYMPH% 15.6 % (20.5-51.1); MCH 29.6 PG (27-31); MCHC 33.6 g/dL (33-37); MCV 88.1 FL (81-99); MONO# 0.93 X1000 (0.11-0.59); MPV 9.1 FL (7.4-10.4); NEUT% 67.3 % (42.2-75.2); PLT 496 X1000 (130-400); RBC 2.94 XMIL (4.7-6.1)
[2016-05-24] MEDS ORDERED: SODIUM CHLORIDE 0.9% INJ SCH (09:00)
[2016-05-24] MEDS ORDERED: CENTRUM SILVER PO SCH (09:00)
[2016-05-24] MEDS ORDERED: PROTONIX IV SCH (09:00)
[2016-05-24] MEDS: CULTURELLE PO SCH (11:15)
[2016-05-24] MEDS: CELEXA PO SCH (11:16)
[2016-05-24] MEDS: ICAR-C PO SCH (11:16)
[2016-05-24] MEDS: ANUSOL-HC CREAM PR SCH (11:23)
[2016-05-24 11:39] VITALS: BP 105/52
--- NOTE | 2016-05-24 15:58 | Carotid Study ---
DATE: 05/22/2016 PROCEDURE: Bilateral carotid ultrasound study. REQUESTING PHYSICIAN: Dr. Andersen INTERPRETING PHYSICIAN: Segundo Adorno MD [employer] CE[employer]ING INSTALLER: Urvashi INDICATIONS: Near syncope. DESCRIPTION OF PROCEDURE: Bilateral duplex and color flow imaging of the carotid arteries was performed using a [employer] Vivid E9 ultrasound system with a 9L-D transducer. OBSERVED DATA RIGHT LEFT Brachial Blood Pressure Carotid Pulse Bruits: Carotid/Sub DIAGRAM OF ULTRASOUND IMAGING R L RIGHT INT EXT INT EXT LEFT Oc (cm/s) Oc (cm/s) Subclavian 87/6 Subclavian 79/4 CCA Proximal 60/9 CCA Proximal 70/4 CCA Distal 51/8 CCA Distal 65/9 Bulb 64/11 Bulb 53/7 ICA Proximal 198/54 ICA Proximal 62/15 ICA Mid 143/55 ICA Mid 88/22 ICA Distal 104/33 ICA Distal 102/25 ECA 64/0 ECA 64/0 Vertebral 51/8, antegrade flow Vertebral 37/3, antegrade flow ICA/CCA Ratio 3.30 ICA/CCA Ratio 1.45 % Stenosis 60 to 79% % Stenosis 0 to 39% FINDINGS: Severe stenosis on the right carotid artery at the level of the carotid bulb extending into the internal carotid. This produces a stenosis of 60 to 79%. On the left side, there is no hemodynamically significant flow-limiting stenosis, although there is atherosclerosis. Both vertebral arteries are antegrade flow. INTERPRETATION: Severe stenosis noted in the right carotid artery from the carotid bulb into the internal carotid producing a stenosis of 60 to 79%. There is no hemodynamically significant flow- limiting stenosis noted on the left. Both vertebral arteries are antegrade flow.
--- NOTE | 2016-05-24 22:44 | DISCHARGE SUMMARY ---
ADMISSION DATE: 05/21/2016 DISCHARGE DATE: 05/24/2016 CONSULTATIONS: 1. Bruce Guthrie M.D., Urology. 2. Gordon Melendez M.D., Gastroenterology. PERTINENT PROCEDURES: 1. Abdomen and pelvis CT showed no evidence of renal stone or hydronephrosis, multiple bilateral renal lesions which most likely represent renal cysts, suprapubic catheter extending into the urinary bladder, possibility of bladder cystitis could not be ruled out, descending colitis, no abscess, no free air, a couple of small gallstones in the gallbladder, no pericholecystic inflammation, borderline retroperitoneal adenopathy, lumbar spine degenerative changes with bilateral L5 pars interarticularis defects noted. 2. Renal ultrasound showed no evidence of obstructive uropathy, polycystic kidneys. 3. Echocardiogram showed an EF of 55-60%. 4. Ileocolonoscopy with colonic biopsy performed by Dr. Melendez. 5. Esophagogastroduodenoscopy with esophageal dilatation performed by Dr. Melendez. DISCHARGE DIAGNOSES: 1. Anemia secondary to possible GI bleeding. The patient has been evaluated by Gastroenterology and underwent an upper and lower GI. No evidence of bleeding or flecks of blood noted. Patient is status post 2 units of packed red blood cells. Hemoglobin and hematocrit are stable. 2. History of prostate cancer with a suprapubic catheter. Evaluated by Dr. Guthrie from Urology. Stable from his standpoint. 3. Severe protein calorie malnutrition. The patient is to continue a GERD lifestyle diet as well as avoiding nuts, seeds and to increase his fiber daily. 4. Hypoglycemia resolved secondary to malnutrition. The patient will do Accu- Cheks before meals and at bedtime. 5. Iron deficiency anemia. Aware. HOSPITAL COURSE: Mr. Obrien is an 85- male who has a past medical history of prostate cancer with radiation treatment status post suprapubic catheter, hypertension, peptic ulcer disease, duodenal ulcer in the past and chronic kidney disease stage 3. Patient went to his primary care physician and ran laboratory studies. They revealed a low hemoglobin and hematocrit, low sodium as well as a high potassium level found with dehydration. He was instructed to come to the ED to seek further treatment. He appeared very pale in color. Stool sample that was obtained showed that it was Hemoccult-positive. Hemoglobin and hematocrit on admission here was 7 and 21. Blood pressure was somewhat on the lower side reading anywhere from the 80s to 90s. He did have a low blood sugar. It was 44 in the lab and 22 by fingerstick. He received an amp of D50. He also stated that he had seen a significant amount of blood in his suprapubic catheter. On observation the urine was mildly dark darker but not hematuria. The patient had a 30 pounds weight loss over the year, decreased appetite, nausea, vomiting when he tries to eat. His suprapubic catheter was mildly red around the insertion site, it did not appear to be infected. Patient was started on Protonix drip. GI as well as Urology were consulted. The patient was transfused with 2 units of blood. He was admitted to the ICU where they could monitor his blood pressures were closely. He was started on IV fluids secondary to his dehydration. Dr. Guthrie stated from his standpoint he was stable and signed off. Patient did undergo an EGD with esophageal dilatation with Dr. Melendez. Patient is to follow GERD lifestyle changes as well as continue Protonix once daily for 3 months and then wean down to Zantac 150 at bedtime. Patient was placed back on a clear liquid diet, then started him on GoLYTELY and then he was scheduled for a colonoscopy with Dr. Melendez with biopsy. He was placed on Icar- C for 3 months; Centrum Silver; follow a diverticulosis diet to avoid corn, nuts, and seeds in the diet; start Metamucil once a day; and we will see the patient in clinic in 4 weeks to review the biopsies; start him on Anusol Cream b.i.d.; and may need APC of radiation proctitis if he continues to be anemic. 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 Patient was started on antibiotics. He will be discharged home on p.o. antibiotics. DISCHARGE DIET: GI soft, to follow GERD lifestyle changes as well as diverticulosis with avoidance of nuts and seeds. VITAL SIGNS AT TIME OF DISCHARGE: Temperature 98.2 degrees, heart rate 70, respirations 18, blood pressure 105/52, O2 is 94% on room air. DISCHARGE MEDICATIONS: 1. HBr 10 mg p.o. daily. 2. Anusol HC cream per rectum b.i.d. 3. Centrum Silver 1 each p.o. daily. 4. Icar-C 1 each p.o. b.i.d. for 3 months. 5. Metamucil daily. 6. Levaquin 500 mg p.o. daily. 7. He will also need to be on Protonix once daily for 3 months for gastritis and reflux, and then wean down to Zantac 150 mg p.o. at bedtime. FOLLOWUP: 1. The patient is being discharged home. 2. He can follow up with his primary care physician, Dr. Liu, in 1 week. 3. He can follow up with Dr. Melendez as previously stated. 4. He can return to the ED for any worsening of symptoms. DISCHARGE TIME: 35 minutes. Dictated by BAYRON Espino for Javi Thurston MD MTDD
--- NOTE | 2016-06-07 17:05 | DISCHARGE SUMMARY ---
ADMISSION DATE: 05/21/2016 DISCHARGE DATE: 05/24/2016 DISCHARGE SUMMARY ADDENDUM: ANSWER: Colitis.
== END 2016-05-24 15:55 | disposition home or self-care (01) | DRG 391 ==
LOC: ED 09:24 → EDIPHOLD 13:24 → 3S 15:48 → 4N 05-23 12:33
PROVIDERS: ATTEND Internal Medicine
PROC: 30233N1 Transfusion of Nonautologous Red Blood Cells into Peripheral Vein, Percutaneous Approach (ICD-10-PCS; 2016-05-21)
PROC: 0D738ZZ Dilation of Lower Esophagus, Via Natural or Artificial Opening Endoscopic (ICD-10-PCS; principal; 2016-05-22 13:13)
DX: K52.9 Noninfective gastroenteritis and colitis, unspecified (principal); E43 Unspecified severe protein-calorie malnutrition; N17.9 Acute kidney failure, unspecified; E86.0 Dehydration; N39.0 Urinary tract infection, site not specified; D62 Acute posthemorrhagic anemia; E87.1 Hypo-osmolality and hyponatremia; E16.1 Other hypoglycemia; K52.0 Gastroenteritis and colitis due to radiation; K51.20 Ulcerative (chronic) proctitis without complications; R19.5 Other fecal abnormalities; N28.1 Cyst of kidney, acquired; N31.9 Neuromuscular dysfunction of bladder, unspecified; I12.9 Hypertensive chronic kidney disease with stage 1 through stage 4 chronic kidney disease, or unspecified chronic kidney disease; N18.3 Chronic kidney disease, stage 3 (moderate); D50.9 Iron deficiency anemia, unspecified; D47.3 Essential (hemorrhagic) thrombocythemia; K22.2 Esophageal obstruction; K55.20 Angiodysplasia of colon without hemorrhage; K29.70 Gastritis, unspecified, without bleeding; K57.30 Diverticulosis of large intestine without perforation or abscess without bleeding; K44.9 Diaphragmatic hernia without obstruction or gangrene; K21.9 Gastro-esophageal reflux disease without esophagitis; Z79.899 Other long term (current) drug therapy; Z87.11 Personal history of peptic ulcer disease; Z92.3 Personal history of irradiation; Z85.46 Personal history of malignant neoplasm of prostate; Z68.25 Body mass index [BMI] 25.0-25.9, adult
CPT/HCPCS: 36415; 36430; 71020; 74176; 76770; 80048; 80053; 81001; 82150; 82270; 82570; 82607; 82728; 82746; 82948; 83036; 83540; 83550; 83690; 83735; 84300; 84443; 85014; 85018; 85025; 85027; 85610; 85730; 86850; 86900; 86901; 86920; 87077; 87088; 87186; 87324; 88305; 88313; 93005; 93010; 93306; 93880; 96365; 96366; 96368; 96375; C9113; J2405; J2543; J2550; J7030; J7040; J7042; P9016; 97116-GP; 97530-GP; S0164

== ENCOUNTER 2016-07-03 09:59 | Inpatient (IN) ==
[2016-07-03] MEDS ORDERED: NS 1,000 ML IV ONE ×2 (10:53→12:33)
--- NOTE | 2016-07-03 11:15 | PROVIDER DOCUMENTATION ---
HPI-Male Problem - General Chief Complaint: Male Stated Complaint: bleed Time Seen by Provider: 07/03/16 10:43 Source: patient Allergies/Adverse Reactions: Patient Allergies Allergy/AdvReac Type Severity Reaction Status Date / Time No Known Allergies Allergy Verified 07/03/16 12:44 Home Medications: Home Medication List Medication Instructions Recorded Confirmed Last Taken Type Citalopram Hydrobromide 10 mg PO DAILY 05/21/16 07/03/16 07/03/16 History [Citalopram HBr] Hydrocortisone 2.5% Cream [address] BID #1 tube 05/24/16 07/03/16 07/03/16 Rx [Anusol-Hc Cream] Inulin [Metamucil] 330.6 gm PO DAILY #1 powder 05/24/16 07/03/16 Unknown Rx Iron Carbonyl/Ascorbic Acid 1 each PO BID #60 tablet 05/24/16 07/03/16 07/03/16 Rx [Icar-C] Levofloxacin [Levaquin] 500 mg PO DAILY #7 tablet 05/24/16 07/03/16 07/03/16 Rx Multivitamins/Minerals [Centrum 1 each PO DAILY #30 tablet 05/24/16 07/03/1603/09 Rx Silver] Pantoprazole Sodium [Protonix] 40 mg PO DAILY #30 tablet. 05/24/16 07/03/16 Rx - History of Present Illness-Male Nature of Presenting Problem: 85 y/o WM c hx of prostate cancer, has a suprapubic catheter in place due to neurogenic bladder, CKD, HTN, duodenal ulcer c/o dizziness, weakness, and bleeding from the catheter site for 2 and a half weeks. Saw the nurse for his urologist yesterday and they sent him home. Saw PCP 2 weeks ago, and had good bill of health. States she has also has generalized abdominal pain and 3-4 episodes of diarrhea daily. Fever of Tmax 101 F this morning, took two 325 mg of Tylenol prior to arrival. Denies chest pain or sob. Dizziness worse with standing. States bleeding both in the urine and around the catheter site. Not currently receiving any chemo or radiation since last admission. Not currently taking blood thinners. Admittedon 05/21/16 with similar symptoms, released on 05/24. 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 Patient reports 30 lb weight loss over the past year, and does not feel like his appetite has increased since the last admission. Patient is followed by Dr. Guthrie, urologist. Review of Systems - Adult - REVIEW OF SYSTEMS - ADULT Constitutional: reports: see HPI, fever, fatique, weight loss. denies: chills Eyes: reports: no symptoms reported. denies: decreased vision, blurred vision, double vision, eye pain Ears, Nose, Mouth & Throat: reports: no symptoms reported. denies: ear pain, nose pain, throat pain Cardiovascular: reports: no symptoms reported. denies: chest pain, irregular heart rate, palpitations Respiratory: reports: no symptoms reported. denies: cough, shortness of breath Gastrointestinal: reports: see HPI, abdominal pain, diarrhea, nausea, poor appetite. denies: vomiting Genitourinary: reports: no symptoms reported. denies: dysuria, discharge, frequency, incontinence Musculoskeletal: reports: no symptoms reported. denies: muscle aches Integumentary: reports: no symptoms reported. denies: rash Neurological: reports: no symptoms reported. denies: headache/migraines Psychiatric: reports: no symptoms reported Endocrine: reports: no symptoms reported Hematologic/Lymphatic: reports: no symptoms reported Allergic/Immunologic: reports: no symptoms reported All Other Systems: Reviewed and Negative Past History - Adult - PAST MEDICAL HISTORY-ADULT Review of Records: reports: Old Records Reviewed, Nursing Assessment Review, Medications Reviewed Major Childhood Illnesses: reports: denies history Cardiovascular: reports: HTN Respiratory: reports: denies history Gastrointestinal: reports: GI bleed, ulcer Obstetrical/Gynecological: reports: denies history Genitourinary: reports: kidney disease, prostate cancer, other (suprapubic catheter) Musculoskeletal: reports: denies history Neurological: reports: denies history Endocrine/Immune: reports: denies history Other Conditions: reports: denies history - PRIOR SURGERIES/PROCEDURES Surgical/Procedure History: reports: reviewed, not pertinent - IMMUNIZATION STATUS Childhood Immunizations: See Nurse Assessment Flu Vaccine: See Nurse Assessment - FAMILY HISTORY Family History: reviewed, not pertinent - SOCIAL HISTORY Smoking: denies Substance Use: none/never Alcohol Use Frequency: never Physical Exam-General - PHYSICAL EXAM-ADULT Initial Vital Signs Reviewed: Yes - CONSTITUTIONAL General Appearance: alert, thin - EYES Eyes: PERRL/EOMI, pale conjunctivae - HEAD, EARS, NOSE, MOUTH & THROAT HENMT: normocephalic/atraumatic - NECK Neck: non-tender, full range of motion, supple, normal inspection - RESPIRATORY Respiratory: chest non-tender, lungs clear, normal breath sounds, no pleuratic chest pain, no respiratory distress, no accessory muscle use. negative: respiratory distress, decreased breath sounds, accessory muscle use, crackles, rales, rhonchi, wheezing - CARDIOVASCULAR Cardiovascular: normal peripheral pulses, no edema, no gallop, no murmur, tachycardia - GASTROINTESTINAL (ABDOMEN) Abdominal Exam: normal bowel sounds, soft, no organomegaly, no pulsatile mass, tenderness (generalized) - LYMPHATIC Lymphatic: no adenopathy - MUSCULOSKELETAL Extremity: normal range of motion Peripheral Pulses: dorsalis-pedis (R): 2+, dorsalis-pedis (L): 2+ - SKIN Integumentary: normal color, normal turgor, warm/dry - NEUROLOGIC Neurologic: grossly normal, no motor/sensory deficits - PSYCHIATRIC Psych/Mental Status: normal mood/affect, normal thought content, normal thought process, oriented x 3 Progress - PLAN OF CARE/RESULTS Progress/Plan/Lab Results: Vital Signs - 8 hr 07/03/16 10:38 07/03/16 13:04 Temperature 99.4 F Pulse Rate 104 H Respiratory Rate 16 Blood Pressure 89/47 112/71 O2 Sat by Pulse Oximetry 100 07/03/16 12:21 Stool Occult Blood (ALIVIA) - Final Stool Laboratory Results - last 24 hr 07/03/16 07/03/16 07/03/16 11:04 11:04 11:04 WBC 8.35 RBC 2.37 L Hgb 7.4 L Hct 21.7 L MCV 91.6 MCH 31.2 H MCHC 34.1 RDW Std Deviation 18.0 H Plt Count 195 MPV 9.2 Immature Gran % (Auto) 0.4 Neut % (Auto) 79.2 H Lymph % (Auto) 9.8 L [place] % (Auto) 10.4 H Eos % (Auto) 0.1 Baso % (Auto) 0.1 Immature Gran # (Auto) 0.03 Neut # (Auto) 6.61 H Lymph # (Auto) 0.82 L [place] # (Auto) 0.87 H Eos # (Auto) 0.01 Baso # (Auto) 0.01 Sodium 126 L Potassium 5.0 Chloride 90 L Carbon Dioxide 20 L Anion Gap 16 BUN 39 H Creatinine 2.2 H Estimated GFR/1.73 m2 29 BUN/Creatinine Ratio 18 Glucose 91 Calculated Osmolality 262 Calcium 8.5 L Total Bilirubin 0.65 AST 19 ALT 7 L Alkaline Phosphatase 87 Total Protein 6.2 L Albumin 2.7 L Globulin 3.5 Albumin/Globulin Ratio 0.8 Urine Source Urine Color Urine Turbidity Urine pH Ur Specific [place] Urine Protein Ur Glucose (Stick) Ur Ketones (Stick) Urine Blood Urine Nitrite Urine Bilirubin Urobilinogen Dipstick Urine Leukocytes Urine WBC (Auto) Urine RBC (Auto) U Epithel Cells (Auto) Urine Bacteria (Auto) Blood Type O NEGATIVE Antibody Screen NEGATIVE 07/03/16 12:25 WBC RBC Hgb Hct MCV MCH MCHC RDW Std Deviation Plt Count MPV Immature Gran % (Auto) Neut % (Auto) Lymph % (Auto) [place] % (Auto) Eos % (Auto) Baso % (Auto) Immature Gran # (Auto) Neut # (Auto) Lymph # (Auto) [place] # (Auto) Eos # (Auto) Baso # (Auto) Sodium Potassium Chloride Carbon Dioxide Anion Gap BUN Creatinine Estimated GFR/1.73 m2 BUN/Creatinine Ratio Glucose Calculated Osmolality Calcium Total Bilirubin AST ALT Alkaline Phosphatase Total Protein Albumin Globulin Albumin/Globulin Ratio Urine Source CLEAN CATCH Urine Color RED Urine Turbidity TURBID Urine pH 7.0 Ur Specific [place] 1.021 Urine Protein 100 A Ur Glucose (Stick) NEGATIVE Ur Ketones (Stick) NEGATIVE Urine Blood LARGE A Urine Nitrite POSITIVE A Urine Bilirubin NEGATIVE Urobilinogen Dipstick 3 A Urine Leukocytes NEGATIVE Urine WBC (Auto) Not Reportable Urine RBC (Auto) TNTC A U Epithel Cells (Auto) Not Reportable Urine Bacteria (Auto) Not Reportable Blood Type Antibody Screen Orders Category Date Time Status Saline Loc NOW Care 07/03/16 10:52 Active Abdomen [ABDOMEN/PELVIS W/O CONTRAST] [CT] Stat Exams 07/03/16 13:00 Draft BLOOD CULTURE [BLDCUL] Stat Lab 07/03/16 13:56 Results C DIFF TOXIN [STOOL] Stat Lab 07/03/16 12:50 Uncollected CBC WITH ELECTRONIC DIFF [HEME] Stat Lab 07/03/16 11:04 Completed COMPREHENSIVE METABOLIC PANEL [CHEM] Stat Lab 07/03/16 11:04 Completed OCCULT BLOOD SCREENING [STOOL] Stat Lab 07/03/16 12:21 Completed STOOL CULTURE [RM] Stat Lab 07/03/16 12:50 Uncollected TYPE & SCREEN [BBK] Stat Lab 07/03/16 11:04 Completed UA NIMS W/REFLEX CULT [URINALYSIS] Stat Lab 07/03/16 12:25 Completed URINE CULTURE [RM] Routine Lab 07/03/16 12:54 Received WBC STOOL [STOOL] Stat Lab 07/03/16 12:50 Uncollected 0.9% Sodium Chloride Inj [Ns] 1,000 ml Med 07/03/16 10:53 Discontinued IV 200 mls/hr 0.9% Sodium Chloride Inj [Ns] 1,000 ml Med 07/03/16 12:33 Active IV 85 mls/hr CefTRIAXONE 1 GM/NS [Rocephin 1 gm/Ns] Med 07/03/16 12:49 Discontinued 1 gm in 50 ml IV NOW Metronidazole 500 mg/Ns [Flagyl 500 mg/Ns] Med 07/03/16 13:13 Discontinued 500 mg in 100 ml IV NOW EKG [EKG] Stat Ther 07/03/16 11:25 Draft Result Diagrams: 07/03/16 11:04 07/03/16 11:04 - CT/MRI 1 CT Study: Abdomen, Pelvis Impression: Abnormal (large hematoma in the urinary bladder, cystitis. stable gallstone, [facility] - CONSULTS/PCP/HOSPITALIST Notification #1 *Consult/PCP/Hospitalist*: Dr. Andersen, hospitalist Time Discussed: 14:22 Reason/Comments: symptomatic anemia, urinary hematoma c uti Consult Disposition: Admit Departure - Departure Time of Disposition Decision: 14:21 DIAGNOSIS: Symptomatic anemia, Lower GI bleed, Acute UTI Disposition: ADMITTED INPATIENT 09 Certified Medical Emergency: Emergent Condition: Stable Referrals and Follow-Ups: Kathi Liu MD [Primary Care Provider] - Attestation - Physician/ VALERIE Attestation Patient care was provided by Advanced Practice Provider:: Yes Advanced Practice Provider:: Shawna Orourke Advanced Practice Provider documentation review:: The Mid-level provider documentation, treatment plan and medical decision making was reviewed by the physician who agrees with all treatment and medical decision making by the MLP.
[2016-07-03 11:26] LABS: MANUAL DIFF NEEDED? NO
[2016-07-03 11:34] LABS: BASO% 0.1 % (0.0-0.8); EOS# 0.01 X1000 (0.0-0.7); EOS% 0.1 % (0.0-10.0); HEMATOCRIT 21.7 % (42.0-52.0); HEMOGLOBIN 7.4 g/dL (14.0-18.0); IMM GRAN# 0.03 X1000 (0.0-0.04); IMM GRAN% 0.4 % (0.0-0.5); LYMPH# 0.82 X1000 (1.2-3.4); LYMPH% 9.8 % (20.5-51.1); MCH 31.2 PG (27-31); MCHC 34.1 g/dL (33-37); MCV 91.6 FL (81-99); MONO# 0.87 X1000 (0.11-0.59); MONO% 10.4 % (1.7-9.3); MPV 9.2 FL (7.4-10.4); NEUT% 79.2 % (42.2-75.2); PLT 195 X1000 (130-400); RBC 2.37 XMIL (4.7-6.1)
[2016-07-03 12:22] LABS: ALBUMIN 2.7 g/dL (3.5-5.0); CALCIUM 8.5 mg/dL (8.8-10.2); TOTAL BILIRUBIN 0.65 mg/dL (0.20-1.00); TOTAL PROTEIN 6.2 g/dL (6.3-8.3)
[2016-07-03 12:35] LABS: URINE MICRO REVIEW NEEDED? NO; URINE SOURCE CLEAN CATCH
[2016-07-03 12:45] LABS: BILIRUBIN URINE NEGATIVE (NEGATIVE); BLOOD URINE LARGE (NEGATIVE); COLOR RED; GLUCOSE URINE NEGATIVE (NEGATIVE); LEUKOCYTES URINE NEGATIVE (NEGATIVE); NITRITE URINE POSITIVE (NEGATIVE); PROTEIN URINE 100 mg/dL (NEGATIVE); SP GRAVITY URINE 1.021; TURBIDITY URINE TURBID (CLEAR); UROBILINOGEN URINE 3 mg/dL (NORMAL)
[2016-07-03 12:48] LABS: URINE RBC TNTC /HPF (<10)
[2016-07-03] MEDS ORDERED: ROCEPHIN 1 GM/NS 1 GM/50 ML IVPB IV ONE (12:49)
[2016-07-03 12:54] LABS: URINE CULTURE NEEDED? YES
[2016-07-03] MEDS ORDERED: FLAGYL 500 MG/NS 500 MG/100 ML IVPB IV ONE ×2 (13:13→23:26)
--- NOTE | 2016-07-03 13:37 | Diag Imaging Result Document ---
PROCEDURE NAME: ABDOMEN/PELVIS W/O CONTRAST - 07/03/2016 CT ABDOMEN AND PELVIS: A CT dose reduction protocol was used. COMPARISON: 05/21/2016. FINDINGS: There is new extensive irregular and ill-defined hyperdense material in the urinary bladder compatible with hemorrhage. Stable suprapubic catheter. Stable diffuse urinary bladder wall thickening with inflammatory edema. There is no colitis presently. There are a few scattered sigmoid colon diverticula. The appendix is stable. Stable bilateral renal cysts. Stable small gallstone in the gallbladder. The lung bases are clear and the heart size is normal. Anemia is present. Degenerative changes of the bones. There are chronic bilateral L5 pars defects. No acute bony lesions. IMPRESSION: 1. New, relatively large hematoma in the urinary bladder. Stable cystitis. 2. No obvious colitis. 3. Cholelithiasis. [facility]
--- NOTE | 2016-07-03 13:55 | EKG Report ---
Test Performed on : 07/03/2016 12:39:21 PM Test Reason : weakness Blood Pressure : / mmHG Vent. Rate : 080 BPM Atrial Rate : 080 BPM P-R Int : 168 ms QRS Dur : 138 ms QT Int : 398 ms P-R-T Axes : 002 -16 053 degrees QTc Int : 459 ms Sinus rhythm. with occasional premature ventricular complexes. Nonspecific intraventricular block Cannot rule out Anterior infarct , age undetermined Abnormal ECG When compared with ECG of 22-MAY-2016 06:54, premature ventricular complexes. are now present Minimal criteria for Anterior infarct are now present Unconfirmed Result
--- NOTE | 2016-07-03 15:17 | ED EKG INTERP ---
This chart was entered by Elin Pérez Scribe, acting as scribe for Spring Walton MD. EKG Interpretation - EKG Time of EKG reading by physician:: 12:39 EKG Read and Signed by:: Spring Walton EKG Interpretation (*Must complete 3 of following elements*): Abnormal ( nonspecific intraventricular block; cannot rule out anterior infarct age undetermined) Rate: 80 Rhythm: sinus with occ pvc [place]: normal QRS: normal Attestation - Physician/ VALERIE Attestation Patient care was provided by Advanced Practice Provider:: Yes Advanced Practice Provider:: Shawna Orourke Advanced Practice Provider documentation review:: The Mid-level provider documentation, treatment plan and medical decision making was reviewed by the physician who agrees with all treatment and medical decision making by the MLP. This chart was documented by the indicated scribe, (Elin Pérez Scribe) and accurately reflects the services I performed and decisions made by la, Spring Walton MD, as attested by the provider's signature.
[2016-07-03 16:11] LABS: IRON SATURATION 3 %; TIBC 214 ug/dL
[2016-07-03 16:16] LABS: TOTAL IRON 7 ug/dL (53-167); UNBOUND IRON 207 ug/dL (112-346)
[2016-07-03] MEDS: ZOSYN 3.375 GM/NS 3.375 GM/50 ML IVPB IV SCH ×2 (16:20→22:30)
[2016-07-03] MEDS ORDERED: MAGNESIUM SULFATE 4 GM/S.W.I. 4 GM/100 ML IVPB IV ONE (16:22)
[2016-07-03] MEDS: PROTONIX 80 MG in NS 80 ML IV SCH (16:25)
[2016-07-03 16:44] LABS: FERRITIN 189 ng/mL (30-400)
--- NOTE | 2016-07-03 17:37 | HISTORY AND PHYSICAL ---
PRIMARY CARE PROVIDER: Dr. Liu. PRIMARY UROLOGIST: Dr. Guthrie. CHIEF COMPLAINT: Dizziness, weakness, bleeding from suprapubic catheter site and blood in the urine and nausea for 2 and half weeks. HISTORY OF PRESENT ILLNESS: Mr. Obrien is a an 85-year-old male, who is in no acute distress. He is able answer questions appropriately. He has a medical history of colitis recently on his last recent admit, iron deficiency anemia, CKD stage 3, peptic ulcer disease, prostate cancer treatment now status post a suprapubic catheter. He is followed by Dr. Guthrie as outpatient. Patient states for 2-1/2 weeks he has noticed bleeding from around the catheter site, urine escaping from round the catheter site and blood in the urine. For the last week he has had some abdominal sharp stabbing pains on occasion with diarrhea. He states the stools are black. He has 3-4 stools per day. He said he has already had 3 black stools this morning. For 2 days he has had a temperature as high as 101 degrees that he takes Tylenol for. The dizziness that is worse with standing has been for the last 2 weeks. He has had dysuria and foul smelling urine. He has had a weight loss of 30 pounds over the last year with a very poor appetite due to increased nausea in the morning. Anemia of a hemoglobin of 7.4, and hematocrit of 21.7. Workup revealed that he did have a positive stool for blood. He denies taking aspirin or medications that would irritate the gastric lining. During his last admit he received blood transfusion. This admit I will order 1 unit of blood and 1 unit of FFP, consult Urology for the excess blood in the urine and the urine that is escaping from around the stoma site. Will consult Gastroenterology for the positive blood in the stool. He has had an abdominal pelvic CT which showed that he has a large hematoma in the urinary bladder. He has got stable cystitis. No obvious colitis and he has cholelithiasis. PAST MEDICAL HISTORY: CKD stage 3, recent colitis, hypertension, prostate cancer, status post radiation treatment, peptic ulcer disease with duodenal ulcer in the past, iron- deficiency anemia. SURGICAL HISTORY: [place] tooth extraction, prostate biopsy, vocal cord operation, placement of suprapubic catheter, strictures in the urethra and bladder that had been incised in the past. SOCIAL HISTORY: Denies tobacco, alcohol or illicit drug use. Uses a walker or cane to ambulate. FAMILY HISTORY: Noncontributory. REVIEW OF SYSTEMS: Fourteen point review of systems were complete and all were negative except for those mentioned above HPI. MEDICAL ALLERGIES: No known drug allergies. HOME MEDICATIONS: Citalopram 10 mg p.o. daily. Hydrocortisone cream per rectum twice daily. Metamucil daily. Icar C 1 tab p.o. twice daily. He was sent home on Levaquin on his last admit which was completed. Centrum Silver 1 tab p.o. daily. Protonix 40 mg p.o. daily. LABORATORY DATA: Blood cells 8000, hemoglobin 7.4, hematocrit 21.7, platelet count 195,000. Sodium 126, potassium 5.0, BUN 39, creatinine 2.2. Calcium 8.5, magnesium 1.3. Iron pending. Total iron binding capacity 214 with saturation of 3, unsaturated pending. Total bilirubin 0.65. AST 19, ALT 7, albumin 2.7. Urinalysis: Urine color red, 100 protein, large blood, positive nitrites, 3 urobilinogen, too numerous to count red blood cells. IMAGING: EKG sinus rhythm with occasional PVCs. Rate is 80. Abdominal pelvic CT: New large hematoma in the urinary bladder. Stable cystitis. No obvious colitis and cholelithiasis. PHYSICAL EXAMINATION: VITAL SIGNS: Temperature 99.4 degrees, heart rate 94, respiratory rate 21, blood pressure 129/63, O2 saturation 93% on room air. 5 feet 8 inches tall, 150 pounds, BMI 22.8. GENERAL: Mr. Orbien is an 85-year-old male, he is in no acute distress. He is able answer questions appropriately. HEENT: Atraumatic, normocephalic. Pupils equal, round, reactive to light. Extraocular movements intact. Mucous membranes are dry. NECK: No JVD or carotid bruits noted. CARDIOVASCULAR: S1, S2. Regular rate and rhythm. No rubs, gallops, murmurs. PULMONARY: Clear to auscultate. Bilateral breath sounds. No accessory muscle use or work of breathing noted. GI: Soft, tender bilateral lower quadrants. Suprapubic catheter site with urine draining around it, blood draining around it. EXTREMITIES: No edema noted. +2 dorsalis and radial pulses. NEUROLOGIC: Alert and oriented x4. Moves all extremities equally. SKIN: Warm, dry, intact, pale. Suprapubic site with erythema around it and drainage. ASSESSMENT AND PLAN: 1. Acute blood loss anemia secondary to large hematoma inside the bladder, also with blood in the Hemoccult of the stool. He takes no medications that would thin his blood. Takes no gastric lining irritants. We will transfuse 1 unit of blood, [address] Guthrie with Urology and Dr. Melendez with Gastroenterology have been consulted. 2. Enlarged hematoma in the bladder. Dr. Guthrie is consulted. 3. Heme positive in the stool. Patient states he has had black diarrhea. He is on iron for iron deficiency anemia but did test positive. We will IV Protonix drip for now. We will start him on Carafate. 4. Iron-deficiency anemia. Continue iron supplementation. 5. Cystitis. He does have dysuria and foul-smelling urine. I will start on Zosyn. The CT shows stable cystitis. He is within normal of his white blood cell count at 8000 but he has a low- grade fever of 99.4. There is no obvious on colitis on the CT. The urine was positive for nitrites. 6. Protein calorie malnutrition. Albumin level is 2.7. Had a 30 pound weight loss over the last year, very poor appetite. Once ruled out for GI bleed. Will do nutritional consult. 7. History of peptic ulcer disease and duodenal ulcer. Again will be on Protonix drip. 8. Hypertension. Blood pressure was a little low on admission. It was 89/47. He does not take anything at home for hypertension. Will not give him anything here as he was mildly hypotensive. 9. Chronic kidney disease stage 3 is stable. We will do IV fluid hydration for now. 10. History of prostate cancer with radiation treatment. He was followed by Dr. Guthrie for that and received radiation through Dr. Bynum. 11. Deep venous thrombosis prophylaxis, SCDs. 12. Gastrointestinal prophylaxis. Proton pump inhibitor. Dictated by BAYRON Blue for Javi Thurston MD cc: BAYRON Blue MD Bhavna Gowda, MD William E. Hughes, MD Manish Arora, MD [facility]
[2016-07-03] MEDS ORDERED: ZOFRAN IV PRN (18:32)
[2016-07-03] MEDS: TYLENOL PO PRN (20:45)
[2016-07-03] MEDS: ICAR-C PO SCH (20:45)
[2016-07-03] MEDS: CARAFATE LIQUID PO SCH (20:45)
[2016-07-03 21:43] LABS: INR 1.13
[2016-07-03] MEDS ORDERED: LEVAQUIN 500 MG/D5W 500 MG/100 ML IVPB IV ONE (23:26)
[2016-07-03] MEDS ORDERED: NS 250 ML ONE (23:43)
[2016-07-04] MEDS: CARAFATE LIQUID PO SCH ×5 (03:12→21:31)
[2016-07-04] MEDS: ANUSOL-HC CREAM PR SCH ×3 (03:13→22:11)
[2016-07-04] MEDS: TYLENOL PO PRN (04:15)
[2016-07-04] MEDS: PROTONIX 80 MG in NS 80 ML IV SCH (05:52)
[2016-07-04 06:48] LABS: MANUAL DIFF NEEDED? NO
--- NOTE | 2016-07-04 06:57 | EKG Report ---
Test Performed on : 07/04/2016 06:07:24 AM Test Reason : chest pain Blood Pressure : / mmHG Vent. Rate : 086 BPM Atrial Rate : 086 BPM P-R Int : 176 ms QRS Dur : 140 ms QT Int : 428 ms P-R-T Axes : 019 -12 046 degrees QTc Int : 512 ms Sinus rhythm. with frequent premature ventricular complexes. Left bundle branch block Abnormal ECG When compared with ECG of 03-JUL-2016 12:39, QT has lengthened Confirmed by Ena BROWN, Preston Sykes ([id number]) on 07/05/2016 9:37:06 PM
[2016-07-04 07:02] LABS: BASO% 0.2 % (0.0-0.8); EOS# 0.02 X1000 (0.0-0.7); EOS% 0.4 % (0.0-10.0); HEMATOCRIT 21.8 % (42.0-52.0); HEMOGLOBIN 7.4 g/dL (14.0-18.0); INR 1.08; LYMPH# 0.44 X1000 (1.2-3.4); LYMPH% 7.9 % (20.5-51.1); MCH 30.5 PG (27-31); MCHC 33.9 g/dL (33-37); MCV 89.7 FL (81-99); MONO# 0.58 X1000 (0.11-0.59); MONO% 10.4 % (1.7-9.3); MPV 8.8 FL (7.4-10.4); NEUT% 81.1 % (42.2-75.2); PLT 164 X1000 (130-400); PROTIME 11.4 Seconds (9.2-11.7); PTT 37.3 Seconds (22.0-36.0); RBC 2.43 XMIL (4.7-6.1)
[2016-07-04 07:10] LABS: ALBUMIN 2.4 g/dL (3.5-5.0); CALCIUM 8.3 mg/dL (8.8-10.2); MAGNESIUM 2.2 mg/dL (1.5-2.7); POTASSIUM 4.2 mmol/L (3.5-5.1); TOTAL BILIRUBIN 0.49 mg/dL (0.20-1.00); TOTAL PROTEIN 5.8 g/dL (6.3-8.3)
[2016-07-04] MEDS ORDERED: DIPRIVAN 1% ONE (09:16)
[2016-07-04] MEDS ORDERED: ZOFRAN ONE (09:37)
[2016-07-04] MEDS ORDERED: DECADRON ONE (09:37)
[2016-07-04] MEDS ORDERED: ANESTHESIA PB SET 88 IN 5742 ONE (09:37)
[2016-07-04] MEDS ORDERED: XYLOCAINE-MPF 2% ONE (09:37)
[2016-07-04] MEDS ORDERED: EXTENSION SET 32 IN 4522 ONE (09:37)
[2016-07-04] MEDS ORDERED: LR 1,000 ML ONE (09:37)
--- NOTE | 2016-07-04 10:35 | OPERATIVE NOTE ---
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 PROCEDURE PERFORMED: 1. Cystoscopic exam. 2. Clot irrigation. 3. Fulgurating of diffuse bleeding areas. 4. Exchange of suprapubic tube. 5. Place urethral Elias catheter. ANESTHESIA: General via laryngeal mask. FINDINGS: Cystoscopic exam: Urethra-greater than 21-Romanian, without stricture. Prostate with an approximate 16-Romanian bladder neck contracture that was easily dilated to greater than 21-Romanian with the cystoscope, status post radiation therapy. Bladder large amount of clot after this was irrigated, both ureteral orifices were visualized. Grade 1 trabeculations. No diverticula. There was diffuse bleeding areas across the trigone and anterior bladder neck and wall. Rectal exam reveals a prostate flat firm status post radiation therapy. There was no blood on the examining finger. 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 He has had several episodes of acute blood loss anemia with clot retention. DESCRIPTION OF PROCEDURE: After informed consent was obtained from the patient, and him receiving IV antibiotics, he was taken to the main OR cystoscopy room placed in the supine position. General anesthesia via laryngeal mask was achieved. He was then placed in the lithotomy position and prepped and draped in the usual sterile fashion for cystoscopic exam. A 21-Romanian sheath cystoscope was passed the patient's urethra, prostate, and in the bladder with findings noted above. A large amount of clot was irrigated from the bladder (greater than 300 mL). After the clot was removed, diffuse bleeding areas could be seen across the trigone and anterior bladder neck. The Bugbee electrode was placed and the bleeding areas were cauterized. At completion, both ureteral orifices were intact. The 18-Romanian Elias catheter that was acting as a suprapubic tube was removed and a 20-Romanian Elias was placed, 10 mL sterile water were placed in the balloon. The bladder was left distended and a 20-Romanian Elias catheter was passed through the patient's urethra and into the bladder, 15 mL sterile water were placed in that balloon. Continuous bladder irrigation of normal saline was started going in through the suprapubic tube and out the urethral Elias. He tolerated the procedure well. ESTIMATED BLOOD LOSS: During the case was 5 mL. DISPOSITION: He was taken to the recovery room in good condition. cc: Bruce Guthrie MD
[2016-07-04] MEDS ORDERED: ELMIRON PO SCH (11:00)
[2016-07-04] MEDS: CENTRUM SILVER PO SCH (11:15)
[2016-07-04] MEDS: CELEXA PO SCH (11:15)
[2016-07-04] MEDS: MORPHINE IV PRN (11:16)
[2016-07-04] MEDS: ICAR-C PO SCH ×2 (11:16→21:30)
[2016-07-04] MEDS: ZOSYN 3.375 GM/NS 3.375 GM/50 ML IVPB IV SCH ×3 (11:19→20:00)
[2016-07-04] MEDS ORDERED: SAMSCA PO ONE (11:42)
[2016-07-04] MEDS: FLAGYL 500 MG/NS 500 MG/100 ML IVPB IV SCH ×2 (11:59→21:26)
[2016-07-04] MEDS: ELMIRON PO SCH ×3 (12:00→21:30)
[2016-07-04] MEDS: PREMARIN PO SCH ×2 (12:00→21:30)
[2016-07-04 12:13] LABS: HEMATOCRIT 22.7 % (42.0-52.0); HEMOGLOBIN 7.7 g/dL (14.0-18.0)
[2016-07-04] MEDS ORDERED: NS 500 ML ONE (12:51)
--- NOTE | 2016-07-04 13:53 | PROGRESS NOTE ---
DATE: 07/04/2016 SUBJECTIVE: Patient reports feeling fine. Denies any chest pain, any shortness of breath, any vomiting blood or blood in the stools. OBJECTIVE: Vital Signs: Temperature 98.2 degrees, heart rate 83, respiratory rate 21, blood pressure 112/58, O2 saturation 100% on room air. General Examination: This is an 85-year-old male, lying in bed in no acute distress. HEENT: Head is normocephalic and atraumatic. Anicteric sclerae and pale conjunctivae. Mucous membranes moist. Neck: Supple. No JVD noted. No carotid bruits. No lymphadenopathy. No thyromegaly. Cardiovascular exam: S1 and S2 heard. No murmurs, gallops, or rubs. Regular rate and rhythm. Respiratory exam: Clear bilaterally to auscultation. No work of breathing or using accessory muscles. Abdomen: Soft, nontender to palpation. Bowel sounds present. No organomegaly. Extremities: No clubbing, cyanosis, or edema. Peripheral pulses present in both legs. Neurological exam: Patient is alert and oriented x3. Able to move 4 extremities. Cranial nerves 2-12 grossly normal. LABORATORY DATA: White cell count 5.58, hemoglobin 7.4 hematocrit 21.8, platelets 164. Sodium 135, potassium 4.2, chloride 92, bicarbonate 19, BUN 36, creatinine 1.9. ASSESSMENT: 1. Anemia of acute blood loss. 2. Hemorrhagic cystitis. 3. Iron deficiency anemia. 4. Urinary tract infection. 5. Protein-calorie malnutrition. 6. Hypertension. 7. Chronic kidney disease stage III. 8. History of prostate cancer with radiation therapy. PLAN: The patient was admitted to the hospital because he was noticing some bleeding around the suprapubic catheter, and upon ER evaluation he was found to have bleeding from the catheter, and also a CT showed a clot retention in the bladder as well. Dr. Guthrie, his primary urologist, has been consulted and then performed a cystoscopy today with removal of clots and irrigation as well. Patient by now is doing fine. Yesterday he received 1 unit of blood and because the hemoglobin is still the same we are going to transfuse 2 units of blood today. Also, he has iron deficiency anemia, so we will provide iron supplementation upon discharge. For cystitis, he has been started on Zosyn and apparently he started also having profuse diarrhea on CT exam that was positive, so he was started on Flagyl as well. We are going to continue with the same management. For peptic ulcer disease and duodenal ulcer, we have consulted GI and apparently as per nursing staff they are not planning to do any procedure because this bleeding from suprapubic catheter could explain his anemia. In any case, we will follow recommendations from GI. For hypertension, the blood pressure is in the range of 100 to 110, so we are going to continue holding any antihypertensive medication. For chronic kidney disease, we do not know about the baseline, but from 2.2 it is getting better. We will continue with the same management. cc: Javi Thurston MD
--- NOTE | 2016-07-04 13:58 | CONSULTATION ---
DATE OF CONSULTATION: 07/04/2016 ATTENDING AND REFERRING PHYSICIAN: Hospitalist. HISTORY OF PRESENT ILLNESS: This 85-year-old male has a history of prostate cancer. He completed radiation therapy in May 2012. 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 The patient presented to the emergency room weak and dizzy. His hemoglobin was 7. He was bleeding through and around his suprapubic tube. The patient also has a history of bladder neck and membranous urethral stricture, contributed to by the radiation therapy. He states he has no energy. The patient has been undergoing hand irrigation of his bladder through the suprapubic tube, but still continues to bleed. PAST MEDICAL HISTORY: Hypertension, chronic renal insufficiency. CURRENT MEDICATIONS: Documented on the chart. PAST SURGICAL HISTORY: Transrectal prostate ultrasound and biopsies. Radiation therapy for prostate cancer. [place] teeth extraction. Vocal cord surgery. TURP. Direct visual internal urethrotomy. Placement of a suprapubic tube. SOCIAL HISTORY: No tobacco or alcohol use. ALLERGIES: No known drug allergies. REVIEW OF SYSTEMS: He states normally he is in good health. He has had stomach and colon problems, and has recently undergone an EGD and colonoscopy. He states he has had black stools, but no blood in the stool that he could see. He denies any problems with diabetes, strokes, or seizures. PHYSICAL EXAMINATION: General: A normally-developed, well-nourished, age apparent white male, oriented in all ways and cooperative. HEENT: Normal for age. Lungs: Clear. Cardiovascular: Regular rate and rhythm. Abdomen: Protuberant soft, nontender. No hepatosplenomegaly or masses. Normal bowel sounds. Genitourinary: Normal male. Both testes down. Scrotal examination is normal. Suprapubic tube in place, draining bloody urine, and some blood coming around the tube. Rectal: Deferred until surgery. Extremities: No clubbing, cyanosis, or edema. Neurologic: No focal deficits. LABORATORY EVALUATION: He has a white count of 5.58, a hemoglobin of 7.4, hematocrit of 21.8, and platelets are 164,000. Serum electrolytes have a sodium of 125, potassium 4.2, chloride 92, bicarbonate 19, BUN 36, creatinine 1.9. IMPRESSIONS: 1. Patient with symptomatic acute blood-loss anemia. 2. History of prostate cancer status post radiation therapy. 3. Clot retention. Recommend cystoscopic examination with clot irrigation, fulguration of any bleeding areas, change his suprapubic tube. The planned procedure, benefits versus risks, and possible complications, including but not limited to bleeding, infection, recurrence of the bleeding, need for further surgery or treatment was discussed. He seems to understand and desires to proceed. cc: Bruce Guthrie MD
[2016-07-04 22:08] LABS: HEMATOCRIT 28.7 % (42.0-52.0); HEMOGLOBIN 9.9 g/dL (14.0-18.0)
[2016-07-04] MEDS ORDERED: LEVAQUIN 500 MG/D5W 500 MG/100 ML IVPB IV SCH (23:30)
[2016-07-05 01:12] LABS: HEMATOCRIT 28.6 % (42.0-52.0)
[2016-07-05] MEDS: ZOSYN 3.375 GM/NS 3.375 GM/50 ML IVPB IV SCH ×4 (02:00→20:10)
[2016-07-05] MEDS: CARAFATE LIQUID PO SCH ×4 (03:19→20:08)
[2016-07-05] MEDS: FLAGYL 500 MG/NS 500 MG/100 ML IVPB IV SCH ×3 (05:00→20:09)
[2016-07-05 07:20] LABS: HEMATOCRIT 28.1 % (42.0-52.0); HEMOGLOBIN 9.8 g/dL (14.0-18.0)
[2016-07-05] MEDS: ICAR-C PO SCH ×2 (09:19→20:09)
[2016-07-05] MEDS: PREMARIN PO SCH ×2 (09:19→20:09)
[2016-07-05] MEDS: CENTRUM SILVER PO SCH (09:19)
[2016-07-05] MEDS: CELEXA PO SCH (09:19)
[2016-07-05] MEDS: ELMIRON PO SCH ×3 (09:20→21:50)
[2016-07-05] MEDS: ANUSOL-HC CREAM PR SCH ×2 (09:20→20:15)
[2016-07-05] MEDS: PROTONIX 80 MG in NS 80 ML IV SCH ×4 (10:43→21:50)
[2016-07-05 12:06] LABS: MANUAL DIFF NEEDED? NO
[2016-07-05 12:09] LABS: HEMATOCRIT 29.1 % (42.0-52.0); HEMOGLOBIN 9.9 g/dL (14.0-18.0); IMM GRAN# 0.02 X1000 (0.0-0.04); IMM GRAN% 0.3 % (0.0-0.5); LYMPH# 0.51 X1000 (1.2-3.4); LYMPH% 8.5 % (20.5-51.1); MCV 88.2 FL (81-99); MONO# 0.91 X1000 (0.11-0.59); MONO% 15.2 % (1.7-9.3); MPV 9.4 FL (7.4-10.4); PLT 200 X1000 (130-400)
[2016-07-05 12:29] LABS: CALCIUM 8.5 mg/dL (8.8-10.2); POTASSIUM 4.5 mmol/L (3.5-5.1)
--- NOTE | 2016-07-05 12:30 | PROGRESS NOTE ---
DATE: 07/05/2016 SUBJECTIVE: Mr. Obrien states that he feels much better today and is requesting more strawberry Ensure. He does state that he has some mild abdominal tenderness and was asking for something to help him with his diarrhea. I explained to the patient that antidiarrheal medications are not good to be given to those to have a Clostridium difficile infection, but we will order him Metamucil to help thicken up his stools. OBJECTIVE: Vital Signs: Temperature 97.4 degrees, heart rate 70, respiratory rate 20, blood pressure 138/68, and O2 saturation 99% on room air. General: Mr. Obrien is an 85-year-old male, in no acute distress. He is able to answer questions appropriately. Cardiovascular: S1 and S2. Regular rate and rhythm. No rubs, gallops, murmurs. Pulmonary: Clear to auscultate with bilateral breath sounds. No accessory muscle use or work of breathing noted. Gastrointestinal: Soft. Positive bowel sounds. Tender in all 4 quadrants to palpation. Nondistended. Suprapubic catheter site with catheter still in place. Gauze was dry. Continuous flush is running through the suprapubic catheter. Genitourinary: Elias catheter also with clear output urine mixed with irrigation solution. LABORATORY DATA: Hemoglobin is 9.8, hematocrit 28. IMAGING STUDIES: None. ASSESSMENT AND PLAN: 1. Acute blood loss anemia secondary to hemorrhagic cystitis and large hematoma in the bladder. He has received a total of 3 units of packed red blood cells since admit, also received 1 fresh frozen plasma. He is now status post cystoscopy with removal of clots and irrigation. Now, he is currently on continuous irrigation. 2. Iron deficiency anemia. Continue iron supplementation. 3. Hemorrhagic cystitis. Continue Zosyn and frequent hemoglobin and hematocrit checks. Transfuse as needed. He is being followed by Dr. Guthrie. 4. Urinary tract infection. Continue Zosyn. 5. Clostridium difficile colitis. Continue Flagyl. 6. Severe protein-calorie malnutrition. His appetite has increased significantly, and he has been drinking around 3 to 4 strawberry Ensures per day along with his meals. 7. Hypertension, stable. 8. Chronic kidney disease stage 3, stable. 9. History of prostate cancer with radiation. 10. Positive blood in the stool with occult stool check. Continue Carafate and Protonix. Gastrointestinal was consulted, but no procedures are planned, as the significant bleeding is through the suprapubic catheter at the time of admission. Dictated by BAYRON Blue for Javi Thurston MD cc: BAYRON Blue MD
[2016-07-05] MEDS ORDERED: SAMSCA PO ONE (13:45)
[2016-07-05] MEDS: METAMUCIL PO SCH ×2 (20:08)
[2016-07-05] MEDS: MORPHINE IV PRN (21:50)
[2016-07-06] MEDS: TYLENOL PM PO PRN ×2 (00:05→23:20)
[2016-07-06] MEDS: CARAFATE LIQUID PO SCH ×4 (02:39→19:49)
[2016-07-06] MEDS: ZOSYN 3.375 GM/NS 3.375 GM/50 ML IVPB IV SCH ×4 (02:39→19:49)
[2016-07-06] MEDS: FLAGYL 500 MG/NS 500 MG/100 ML IVPB IV SCH ×3 (03:11→19:49)
[2016-07-06 06:45] LABS: MANUAL DIFF NEEDED? NO
[2016-07-06 07:08] LABS: ALBUMIN 2.7 g/dL (3.5-5.0); BASO% 0.1 % (0.0-0.8); CALCIUM 8.8 mg/dL (8.8-10.2); EOS# 0.02 X1000 (0.0-0.7); EOS% 0.3 % (0.0-10.0); IMM GRAN# 0.03 X1000 (0.0-0.04); IMM GRAN% 0.4 % (0.0-0.5); LYMPH# 1.07 X1000 (1.2-3.4); MAGNESIUM 1.8 mg/dL (1.5-2.7); MCHC 34.5 g/dL (33-37); MCV 89.8 FL (81-99); MONO# 0.84 X1000 (0.11-0.59); MONO% 12.6 % (1.7-9.3); MPV 9.4 FL (7.4-10.4); NEUT% 70.6 % (42.2-75.2); PLT 265 X1000 (130-400); POTASSIUM 4.2 mmol/L (3.5-5.1); RBC 3.23 XMIL (4.7-6.1); TOTAL BILIRUBIN 0.23 mg/dL (0.20-1.00); TOTAL PROTEIN 6.3 g/dL (6.3-8.3)
[2016-07-06] MEDS: PROTONIX 80 MG in NS 80 ML IV SCH (08:39)
[2016-07-06] MEDS: ICAR-C PO SCH ×2 (08:40→22:22)
[2016-07-06] MEDS: ELMIRON PO SCH ×3 (08:40→22:22)
[2016-07-06] MEDS: CENTRUM SILVER PO SCH (08:40)
[2016-07-06] MEDS: CELEXA PO SCH (08:40)
[2016-07-06] MEDS: METAMUCIL PO SCH ×4 (08:40→22:23)
[2016-07-06] MEDS: PREMARIN PO SCH ×2 (08:40→22:22)
[2016-07-06] MEDS: ANUSOL-HC CREAM PR SCH (08:42)
[2016-07-06] MEDS: MORPHINE IV PRN (11:10)
--- NOTE | 2016-07-06 12:43 | PROGRESS NOTE ---
DATE: 07/06/2016 SUBJECTIVE: Patient reports feeling fine. Denies any abdominal pain, any blood in the stools or vomiting blood. OBJECTIVE: Vital Signs: Temperature 97.6 degrees, heart rate 62, respiratory rate 18, blood pressure 117/56, O2 saturation 100% on room air. General Examination: This is an 85-year-old male, lying in bed, in no acute distress. HEENT: Head is normocephalic, atraumatic. Anicteric sclerae. Mucous membranes moist. Neck: Supple. No JVD noted. No carotid bruits. No lymphadenopathy. No thyromegaly. Cardiovascular: S1, S2 heard. No murmurs, gallops, or rubs. Regular rate and rhythm. Respiratory: Clear bilaterally to auscultation. No work of breathing or using accessory muscles. Abdomen: Suprapubic catheter is still in place. Dressing is dry. Continues flushing throughout the suprapubic catheter with Elias bag still bloody. Neurological: Patient is alert and oriented x3. Able to move 4 extremities. Cranial nerves 2-12 grossly normal. LABORATORY DATA: White cell count 6.69, hemoglobin 10.0, hematocrit 29.0, platelets 265,000 and BMP shows a creatinine 1.6, BUN 39. ASSESSMENT/PLAN: 1. Acute blood loss anemia secondary to hemorrhagic cystitis and large hematoma in the bladder. So far he has received 2 units of blood and hemoglobin is stable so far now. He is still having some hematuria. Dr. Guthrie from Urology following this patient. 2. Iron-deficiency anemia. We will continue with iron supplementation. 3. Urinary tract infection. We will continue with Zosyn. 4. C. difficile infection. Actually he had 4-5 bowel movements yesterday and so far, he had 1. We will continue with Flagyl. Clinically patient is improving. 5. Severe protein calorie malnutrition. Appetite has increased significantly. Will continue with Ensure. 6. Hypertension. Blood pressure is stable. We will continue with the same management. 7. Chronic kidney disease stage 3. Now the creatinine is around baseline. We will continue checking BMP daily. 8. History of prostate cancer with radiation. Aware. 9. Positive blood in the stool with occult stool check. GI has been consulted but they are not going to do anything because they think that this bleeding is coming mostly from the suprapubic catheter. cc: Javi Thurston MD
[2016-07-06] MEDS: PROTONIX IV SCH (14:37)
[2016-07-06] MEDS: SODIUM CHLORIDE 0.9% INJ SCH (14:37)
[2016-07-07] MEDS: ANUSOL-HC CREAM PR SCH ×3 (02:13→20:39)
[2016-07-07] MEDS: CARAFATE LIQUID PO SCH ×4 (02:13→20:38)
[2016-07-07] MEDS: ZOSYN 3.375 GM/NS 3.375 GM/50 ML IVPB IV SCH ×2 (02:14→08:57)
[2016-07-07] MEDS: SODIUM CHLORIDE 0.9% INJ SCH ×2 (03:25→15:45)
[2016-07-07] MEDS: PROTONIX IV SCH ×2 (03:25→15:45)
[2016-07-07] MEDS: FLAGYL 500 MG/NS 500 MG/100 ML IVPB IV SCH ×3 (03:25→20:38)
[2016-07-07 07:28] LABS: BASO% 0.7 % (0.0-0.8); EOS% 1.6 % (0.0-10.0); HEMATOCRIT 27.7 % (42.0-52.0); HEMOGLOBIN 9.2 g/dL (14.0-18.0); IMM GRAN# 0.03 X1000 (0.0-0.04); IMM GRAN% 0.5 % (0.0-0.5); LYMPH# 1.22 X1000 (1.2-3.4); LYMPH% 19.9 % (20.5-51.1); MANUAL DIFF NEEDED? NO; MCH 30.8 PG (27-31); MCHC 33.2 g/dL (33-37); MCV 92.6 FL (81-99); MONO# 0.89 X1000 (0.11-0.59); MONO% 14.5 % (1.7-9.3); MPV 8.7 FL (7.4-10.4); NEUT% 62.8 % (42.2-75.2); PLT 261 X1000 (130-400); RBC 2.99 XMIL (4.7-6.1)
[2016-07-07 07:49] LABS: ALBUMIN 2.6 g/dL (3.5-5.0); CALCIUM 8.6 mg/dL (8.8-10.2); MAGNESIUM 1.6 mg/dL (1.5-2.7); POTASSIUM 4.7 mmol/L (3.5-5.1); TOTAL BILIRUBIN 0.2 mg/dL (0.20-1.00)
[2016-07-07] MEDS: METAMUCIL PO SCH ×4 (08:56→20:39)
[2016-07-07] MEDS: CENTRUM SILVER PO SCH (08:56)
[2016-07-07] MEDS: ELMIRON PO SCH ×3 (08:56→20:38)
[2016-07-07] MEDS: CELEXA PO SCH (08:56)
[2016-07-07] MEDS: ICAR-C PO SCH ×2 (08:56→20:38)
[2016-07-07] MEDS: PREMARIN PO SCH ×2 (08:56→20:38)
--- NOTE | 2016-07-07 15:13 | PROGRESS NOTE ---
DATE: 07/07/2016 SUBJECTIVE: Patient is feeling fine. No abdominal pain. No nausea or vomiting or vomiting blood. OBJECTIVE: Vital Signs: Temperature 97.4 degrees, heart rate 69, respiratory rate 18, blood pressure 145/63, O2 saturation 100% on room air. General Examination: This is a 89-year-old, male, lying in bed, in no acute distress. HEENT: Head is normocephalic, atraumatic. Anicteric sclerae and pale conjunctivae. Mucous membranes moist. Neck: Supple. No JVD noted. No carotid bruits. No lymphadenopathy. No thyromegaly. Cardiovascular: S1, S2 heard. No murmurs, gallops, or rubs. Regular rate and rhythm. Respiratory: Clear bilaterally to auscultation. No work of breathing or using accessory muscles. Abdomen: Suprapubic catheter in place. Dressing is dry. Continues flow seen throughout the suprapubic catheter. We will pull it back as it is still bloody. Neurological: Patient is alert and oriented x3. Able to move 4 extremities. Cranial nerves 2-12 grossly normal. LABORATORY DATA: White cell count 6.13, hemoglobin 9.2, hematocrit 27.7, platelets 261,000. BMP unremarkable except BUN 39. Creatinine 1.6. ASSESSMENT AND PLAN: 1. Acute blood loss anemia secondary to hemorrhagic cystitis and large hematoma in the bladder. The patient's hemoglobin has dropped a little bit from 10-9.2. She has received so far 2 units of blood and is still having marked hematuria. Dr. Guthrie from Urology is following this patient. We are going to continue keeping this patient in the hospital. Monitoring him closely. 2. Iron-deficiency anemia. Patient on iron supplementation. 3. Urinary tract infection. The urine culture did not show any pathogenic growth so I think at this point, we are going to stop . 4. Severe protein calorie malnutrition. Patient's appetite is good and we will continue providing Ensure. 5. Hypertension. Blood pressure is stable. We will continue with the same management. 6. Chronic kidney disease stage 3. Creatinine is around baseline. We will continue checking BMP daily, anyway. 7. History of prostate cancer with radiation. Aware. cc: Javi Thurston MD
[2016-07-08] MEDS: PROTONIX IV SCH ×2 (04:55→16:55)
[2016-07-08] MEDS: SODIUM CHLORIDE 0.9% INJ SCH ×2 (04:55→16:55)
[2016-07-08] MEDS: CARAFATE LIQUID PO SCH ×4 (04:55→21:37)
[2016-07-08] MEDS: FLAGYL 500 MG/NS 500 MG/100 ML IVPB IV SCH ×3 (04:55→21:36)
[2016-07-08 06:41] LABS: BASO% 0.6 % (0.0-0.8); EOS# 0.12 X1000 (0.0-0.7); EOS% 1.8 % (0.0-10.0); HEMATOCRIT 27.6 % (42.0-52.0); IMM GRAN# 0.02 X1000 (0.0-0.04); IMM GRAN% 0.3 % (0.0-0.5); LYMPH# 1.43 X1000 (1.2-3.4); LYMPH% 21.9 % (20.5-51.1); MANUAL DIFF NEEDED? YES; MCH 30.2 PG (27-31); MCHC 32.6 g/dL (33-37); MCV 92.6 FL (81-99); MONO# 0.84 X1000 (0.11-0.59); MONO% 12.9 % (1.7-9.3); MPV 8.7 FL (7.4-10.4); NEUT% 62.5 % (42.2-75.2); PLT 298 X1000 (130-400); RBC 2.98 XMIL (4.7-6.1)
[2016-07-08 06:43] LABS: ALBUMIN 2.7 g/dL (3.5-5.0); CALCIUM 8.7 mg/dL (8.8-10.2); MAGNESIUM 1.5 mg/dL (1.5-2.7); POTASSIUM 4.7 mmol/L (3.5-5.1); TOTAL BILIRUBIN 0.21 mg/dL (0.20-1.00); TOTAL PROTEIN 6.1 g/dL (6.3-8.3)
[2016-07-08 07:17] LABS: BANDS 2 % (0-1); HYPOCHROM 1+; LYMPHS 18 % (21-51); MONO 12 % (1-9)
--- NOTE | 2016-07-08 08:16 | CONSULTATION ---
DATE OF CONSULTATION: 07/06/2016 Javi Thurston MD PRIMARY CARE DOCTOR: Kathi Liu MD PRIMARY UROLOGIST: Bruce Guthrie MD REASON FOR CONSULTATION: Positive Hemoccult anemia. HISTORY OF ILLNESS: Mr. Obrien is an 85-year-old male who was admitted on 07/03 with dizziness, weakness, bleeding from suprapubic catheter site and blood in the urine and nausea for 2 and a half weeks. The patient on admission was noted to have positive Hemoccult. He was seen by Dr. Guthrie who performed cystoscopy and it showed clots in the bladder and diffuse bleeding areas in the bladder which were fulgurated. He also performed exchange of suprapubic catheter and placed a urethral Elias catheter. The patient has a known history of prostate cancer status post radiation therapy with hemorrhagic cystitis secondary to radiation and with clot retention. The patient also had a recent GI workup in the form of EGD and colonoscopy done on May 22 and May 23 2016, where it showed diverticulosis of the colon more so on the left than the right, colitis starting in the transverse colon, extending all the way to the sigmoid colon, superficial ulcerations, colonic mucosal edema, erythema, and evidence of radiation colitis , proctitis in the distal rectum and anal area with some superficial ulcers. EGD done on 2016 showed a Schatzki ring in the distal esophagus dilated with 50-Ukrainian dilator, hiatal hernia sliding type and mild erosions in gastric antrum. At that time, the biopsies showed chronic active colitis with focal superficial erosion and differentials were self-limiting colitis versus chronic inflammatory bowel disease and ischemic colitis. The patient has a history of intermittent constipation secondary to diverticulitis and diverticulosis which I believe contributed to his colitis. The patient denies any noticing blood in the stools or black stools. Denies any current nausea and vomiting. He is anemic and he has so far received 3 units of blood. PAST MEDICAL HISTORY: 1. Chronic kidney disease stage 3. Recent EGD, colonoscopy showing gastritis, hiatal hernia, Schatzki ring and mild colitis starting in the transverse colon to the sigmoid colon, likely ischemic colitis versus self-limiting colitis, prostate cancer, status post radiation treatment, complicated hemorrhagic cystitis and clot retention. 2. Peptic ulcer disease and duodenal ulcer in the past. 3. Iron deficiency anemia. 4. Positive Hemoccult. PAST SURGICAL HISTORY: 1. [place] teeth extraction. 2. Prostate biopsy. 3. Vocal cord operation. 4. Placement of suprapubic catheter, strictures in the urethra and bladder. 5. Recent cystoscopy as described above on this admission. SOCIAL HISTORY: No history of alcohol, tobacco or illicit drugs. He uses as walker or cane to ambulate. He is . He has a supportive family at bedside. FAMILY HISTORY: Noncontributory. REVIEW OF SYSTEMS: Denied any current fevers, rigors, or chills, chest pain, shortness of breath. Denies any vomiting, vomiting blood or passing blood in the stools. He does have intermittent nausea for the last 2-1/2 weeks. He has lost about 30 pounds in the last year with poor appetite and decreased p.o. intake. He has ongoing hematuria for many months being managed by Dr. Guthrie. Denies any neurologic complaints. MEDICATIONS IN THE HOSPITAL: Tylenol, Tylenol PM Celexa, conjugated estrogen, Flagyl, hydrocortisone 2.5% b.i.d. Iron C b.i.d. Morphine IV. Multivitamin once daily. Zofran 4 mg IV every 4 hours. Protonix 40 mg IV q.12 hours. Protonix drip at 110 mL/h which is supposed to be discontinued today. Metamucil 1 cap b.i.d. Carafate 1 g 6 hours. Zosyn 3.375 IV q.6 hours. Samsca 115 g p.o. once. He is currently on regular diet and Ensure. PHYSICAL EXAMINATION: Vital Signs: Temperature 97.6 degrees, pulse rate of 62 , respiratory rate 18, blood pressure 170/56, saturating 100% on room air. Body weight of 153 pounds 5 ounces. BMI of 24.8 kg. General Appearance: Moderately nourished lying in bed, in no acute distress. HEENT: Pale conjunctiva, no icterus. Pupils equal, react to light. Neck: Supple. Chest: Decreased breath sounds. Heart: Regular rhythm. No murmur. Abdomen: Soft, nontender, suprapubic catheter is noted and urethral catheter noted. Bowel sounds present. No guarding. Extremities: No cyanosis, clubbing. Neurologic: He is alert, awake, oriented. LABORATORY DATA: Hemoglobin and hematocrit are 10 and 29, white count 6.6, platelet count of 265,000. MCV of 89.8, INR 1.08. PT of 11.4, PTT of 37.3. Sodium 139, potassium 4.2, chloride 102, bicarb 22, anion gap of 15, BUN of 39, creatinine 1.6, glucose of 101, calcium is 8.8. Phosphorous 2, magnesium 1.8. Total bilirubin is 0.23, AST 15, ALT 10. Alkaline phosphatase INC 00:07:17> , total protein 6.2, albumin of 2.7, folate 28.01. Urinalysis showed positive protein. Positive blood. Positive nitrite. Imaging: He had a CT of the abdomen and pelvis done on 07/03/2016 which showed a relatively large hematoma. Urinary bladder stable cystitis. No obvious colitis or cholelithiasis. IMPRESSION AND PLAN: 1. Positive Hemoccult. 2. Reflux disease. 3. Hiatal hernia. 4. Gastritis. 5. Diverticulosis in the left colon more than the right colon. 6. Hemorrhoids. 7. Evidence of mild colitis in the transverse colon, extending to the sigmoid colon on colonoscopy in 05/2016. Biopsies suggesting chronic active colitis likely self-limited colitis versus chronic inflammatory bowel disease versus diverticulitis versus colitis but the current CT scan does not show any acute colitis. The patient denies any GI symptoms other than nausea is getting better. IMPRESSION: 1. We will check inflammatory bowel disease panel to evaluate for Crohn's disease and ulcerative colitis. 2. We will continue Metamucil twice daily. 3. We will continue on Protonix IV b.i.d. 4. The patient will continue on Iron C b.i.d. 5. Avoid any NSAIDs for now. 6. Patient will continue with the treatment of hematuria and hemorrhagic cystitis with Dr. Guthrie. I think hematuria and hemorrhagic cystitis is likely the cause of patient's current anemia. I discussed the above plan of care the patient and his at bedside. All questions answered.Please call us with any further questions. cc: MD Kathi Laureano MD Cesar Garcia-Rodriguez, MD Manish Arora, MD MTDD
[2016-07-08] MEDS: CENTRUM SILVER PO SCH (08:43)
[2016-07-08] MEDS: CELEXA PO SCH (08:43)
[2016-07-08] MEDS: PREMARIN PO SCH ×2 (08:43→21:37)
[2016-07-08] MEDS: METAMUCIL PO SCH ×4 (08:44→21:37)
[2016-07-08] MEDS: ELMIRON PO SCH ×3 (08:44→21:37)
[2016-07-08] MEDS: ICAR-C PO SCH ×2 (08:44→21:37)
[2016-07-08] MEDS: ANUSOL-HC CREAM PR SCH ×2 (08:45→21:44)
--- NOTE | 2016-07-08 13:03 | PROGRESS NOTE ---
DATE: 07/08/2016 SUBJECTIVE: Patient is feeling fine. Denies any chest pain, any abdominal pain. No nausea or vomiting. OBJECTIVE: Vital Signs: Temperature 97.6 degrees, heart rate 81, respiratory rate 18, blood pressure 157/76, O2 saturation 100% on room air. General Examination: This is an 85-year-old male, lying in bed, in no acute distress. HEENT: Head is normocephalic, atraumatic. Anicteric sclerae and pale conjunctivae. Mucous membranes moist. Neck: Supple. No jugular venous distention noted. No carotid bruits. No lymphadenopathy. No thyromegaly. Cardiovascular Examination: S1, S2 heard. No murmurs, gallops, or rubs. Regular rate and rhythm. Respiratory Examination: Clear bilaterally to auscultation. No work of breathing or using accessory muscles. Abdomen: Suprapubic catheter in place. Dressing is dry. Continuous flow seen throughout the suprapubic catheter and the Elias back is still bloody. Neurological Examination: Patient is alert and oriented x3. Able to move his extremities. Cranial nerves 2-12 grossly normal. LABORATORY DATA: White cell count is 6.53, hemoglobin 9.0, hematocrit 27.6, platelets 298,000. BMP unremarkable, except mild elevation of creatinine 1.5 and BUN 34. ASSESSMENT/PLAN: 1. Acute blood loss anemia secondary to hemorrhagic cystitis and large hematoma in the bladder. Hemoglobin has been stable from yesterday to today, 9.2 yesterday and 9.0 today. So far, he has received 2 units of blood, but he still having markedly hematuria. Dr. Guthrie from Urology is following this patient. We will follow his recommendations. 2. Iron-deficiency anemia noted and by now the patient is on iron supplementation. We will continue with that. 3. Urinary tract infection. As we mentioned before, urine culture did not show any pathogenic growth, so we have the stopped antibiotics just the day before yesterday. 4. Severe protein calorie malnutrition. Patient's appetite is good. We can continue providing Ensure. 5. Hypertension. Blood pressure is stable. We will continue with the same management. 6. Chronic kidney disease Stage 3. Creatinine around baseline. We will continue checking BMP daily. 7. History of prostate cancer, with radiation aware. 8. Overall, this patient is doing good condition. The patient was admitted to the hospital for anemia and bleeding from suprapubic catheter, so Dr. Guthrie has taken the patient to the OR and performed cystoscopy and now he is on bladder irrigation since last Friday. The patient is still having bloody urine. At this point, we are going to continue with the same management. We will see for how long Dr. Guthrie is planning to keep this patient at this irrigation. When we are able to take it out, we will consult physical therapy and see this patient will need rehabilitation or not. cc: Javi Thurston MD
[2016-07-08] MEDS: NEUTRA-PHOS PO SCH ×3 (14:18→21:37)
[2016-07-09] MEDS: TYLENOL PM PO PRN (00:48)
[2016-07-09] MEDS: MORPHINE IV PRN (00:48)
[2016-07-09] MEDS: CARAFATE LIQUID PO SCH ×4 (01:05→21:57)
[2016-07-09] MEDS: FLAGYL 500 MG/NS 500 MG/100 ML IVPB IV SCH ×3 (05:49→21:57)
[2016-07-09] MEDS: PROTONIX IV SCH ×2 (05:49→16:53)
[2016-07-09] MEDS: SODIUM CHLORIDE 0.9% INJ SCH ×2 (05:49→16:52)
[2016-07-09 06:39] LABS: MANUAL DIFF NEEDED? NO
[2016-07-09 06:50] LABS: BASO% 0.7 % (0.0-0.8); EOS# 0.23 X1000 (0.0-0.7); EOS% 3.8 % (0.0-10.0); HEMATOCRIT 26.3 % (42.0-52.0); HEMOGLOBIN 8.8 g/dL (14.0-18.0); IMM GRAN# 0.04 X1000 (0.0-0.04); IMM GRAN% 0.7 % (0.0-0.5); LYMPH# 1.58 X1000 (1.2-3.4); LYMPH% 26.1 % (20.5-51.1); MCH 31.1 PG (27-31); MCHC 33.5 g/dL (33-37); MCV 92.9 FL (81-99); MONO# 1.04 X1000 (0.11-0.59); MONO% 17.2 % (1.7-9.3); MPV 8.7 FL (7.4-10.4); NEUT% 51.5 % (42.2-75.2); PLT 343 X1000 (130-400); RBC 2.83 XMIL (4.7-6.1)
[2016-07-09 06:52] LABS: ALBUMIN 2.7 g/dL (3.5-5.0); CALCIUM 8.8 mg/dL (8.8-10.2); MAGNESIUM 1.6 mg/dL (1.5-2.7); POTASSIUM 4.8 mmol/L (3.5-5.1); TOTAL BILIRUBIN 0.18 mg/dL (0.20-1.00); TOTAL PROTEIN 6.2 g/dL (6.3-8.3)
[2016-07-09] MEDS: ELMIRON PO SCH ×3 (08:05→22:10)
[2016-07-09] MEDS: CENTRUM SILVER PO SCH (08:05)
[2016-07-09] MEDS: CELEXA PO SCH (08:05)
[2016-07-09] MEDS: ICAR-C PO SCH ×2 (08:05→21:57)
[2016-07-09] MEDS: METAMUCIL PO SCH ×4 (08:05→21:57)
[2016-07-09] MEDS: PREMARIN PO SCH ×2 (08:05→21:57)
[2016-07-09] MEDS: NEUTRA-PHOS PO SCH ×4 (08:06→21:59)
[2016-07-09] MEDS: ANUSOL-HC CREAM PR SCH ×2 (08:06→21:58)
--- NOTE | 2016-07-09 18:59 | PROGRESS NOTE ---
DATE: 07/09/2016 SUBJECTIVE: This patient states that he is feeling fine. He denies any chest pain, nausea, vomiting, diarrhea, constipation. He is still having hematuria. The continued irrigation to the gallbladder has been stopped. OBJECTIVE: Vital Signs: Temperature 98.2 degrees, pulse 61, respiratory rate 15, blood pressure 128/57, O2 saturation 100% on room air. HEENT: Head normocephalic. No trauma. PERRLA. Neck: Supple. No JVD. No masses. Central trachea. Chest: Clear to auscultation. No wheezing. No rales. Abdomen: Soft, nontender, nondistended. No hepatosplenomegaly. Suprapubic catheter in place with hematuria. Neurological: The patient is alert and oriented x3. No focal neurological deficits. LABORATORY: WBC 6, hemoglobin 8.8, hematocrit 26.3, platelets 343,000. Sodium 135, potassium 4.8, chloride 99, bicarbonate 24, BUN 33, creatinine 1.4, glucose 97, calcium 8.8, phosphorus 2.9, magnesium 1.6. ASSESSMENT AND PLAN: 1. Blood loss secondary to acute blood loss anemia secondary to hemorrhagic cystitis and large hematoma in the bladder. Hemoglobin has been stable, will continue to monitor. He received already 2 units of blood and he is still having hematuria Dr. Guthrie from urology is following this patient. We will continue following his recommendations. 2. Iron-deficiency anemia noted. This patient is getting iron supplementation. Will continue with the same management. 3. Urinary tract infection. Cultures have been negative so far. We have already stopped all antibiotics a few days ago. 4. Hypertension. Blood pressure is stable. Continue with the same management. 5. Chronic kidney disease stage 3. Creatinine is around his baseline. Continue checking BMP. 6. History of prostate cancer with radiation. Aware. cc: Nilo Easton MD
[2016-07-10] MEDS: MORPHINE IV PRN ×2 (03:20→21:41)
[2016-07-10] MEDS: CARAFATE LIQUID PO SCH ×4 (03:21→21:43)
[2016-07-10] MEDS: SODIUM CHLORIDE 0.9% INJ SCH ×2 (05:28→15:34)
[2016-07-10] MEDS: PROTONIX IV SCH ×2 (05:28→15:34)
[2016-07-10] MEDS: FLAGYL 500 MG/NS 500 MG/100 ML IVPB IV SCH ×3 (05:28→21:43)
[2016-07-10] MEDS: TYLENOL PO PRN (05:32)
[2016-07-10 07:29] LABS: BASO% 0.5 % (0.0-0.8); EOS# 0.19 X1000 (0.0-0.7); EOS% 3.4 % (0.0-10.0); HEMATOCRIT 26.6 % (42.0-52.0); HEMOGLOBIN 8.7 g/dL (14.0-18.0); IMM GRAN# 0.05 X1000 (0.0-0.04); IMM GRAN% 0.9 % (0.0-0.5); LYMPH# 1.16 X1000 (1.2-3.4); MANUAL DIFF NEEDED? NO; MCH 30.2 PG (27-31); MCHC 32.7 g/dL (33-37); MCV 92.4 FL (81-99); MONO# 0.83 X1000 (0.11-0.59); MPV 8.6 FL (7.4-10.4); NEUT% 59.2 % (42.2-75.2); PLT 393 X1000 (130-400); RBC 2.88 XMIL (4.7-6.1)
[2016-07-10 07:59] LABS: ALBUMIN 2.7 g/dL (3.5-5.0); CALCIUM 9.1 mg/dL (8.8-10.2); MAGNESIUM 1.6 mg/dL (1.5-2.7); POTASSIUM 4.8 mmol/L (3.5-5.1); TOTAL BILIRUBIN 0.2 mg/dL (0.20-1.00); TOTAL PROTEIN 6.3 g/dL (6.3-8.3)
[2016-07-10] MEDS: CENTRUM SILVER PO SCH (08:34)
[2016-07-10] MEDS: ELMIRON PO SCH ×3 (08:34→21:43)
[2016-07-10] MEDS: CELEXA PO SCH (08:34)
[2016-07-10] MEDS: ANUSOL-HC CREAM PR SCH ×2 (08:34→21:42)
[2016-07-10] MEDS: ICAR-C PO SCH ×2 (08:34→21:43)
[2016-07-10] MEDS: PREMARIN PO SCH ×2 (08:35→21:43)
[2016-07-10] MEDS: NEUTRA-PHOS PO SCH ×4 (08:35→21:43)
[2016-07-10] MEDS: METAMUCIL PO SCH ×4 (08:35→21:43)
--- NOTE | 2016-07-10 11:00 | PROGRESS NOTE ---
DATE: 07/10/2016 SUBJECTIVE: This patient states that he is feeling fine, he is not complaining of chest pain. No nausea, no vomiting, no constipation, he states that his diarrhea is getting much better. He is having just 1 episode per day. He is still having hematuria, Dr. Guthrie has evaluated this patient and probably, he will put this patient on Amicar IV. OBJECTIVE: Vital Signs: Temperature 97.9 degrees, pulse 70, respiratory rate 16, blood pressure 137/63, O2 saturation 99 on room air. HEENT: Head normocephalic. No trauma. PERRLA. Neck: Supple. No JVD. No masses. Central trachea. Chest: Clear to auscultation. No wheezing. No rales. Abdomen: Soft, nontender, nondistended. No hepatosplenomegaly. Suprapubic catheter in place with hematuria. Neurologic: The patient is alert, oriented x3. No focal neurological deficits. LABORATORY: WBC 5.5, hemoglobin 8.7, hematocrit 26.6, platelets 393,000. Sodium 133, potassium 4.8, chloride 98, bicarbonate 24, BUN 29, creatinine 1.3, glucose 97 calcium 9.1. ASSESSMENT AND PLAN: 1. Blood loss secondary to hemorrhagic cystitis and this is likely secondary to radiation, hemoglobin has been stable. We will continue to monitor. He received already 2 units of blood and he is still having hematuria. Dr. Guthrie from urology is following this patient, probably he will start this patient today on Amicar IV, probably he will again start this patient on bladder irrigation. 2. Iron-deficiency anemia noted. This patient is getting iron supplementation. We will continue with the same management for now. 3. Urinary tract infection. Culture has been negative so far. We already stopped all his antibiotics. 4. Hypertension stable. Continue to monitor. 5. Chronic kidney disease stage 3. Creatinine is around his baseline. Continue checking BMP. 6. History of prostate cancer with radiation. Aware. cc: Nilo Easton MD
[2016-07-10] MEDS ORDERED: NS IV ONE (12:00)
[2016-07-10] MEDS ORDERED: AMICAR IV ONE (12:00)
[2016-07-10] MEDS ORDERED: AMICAR IV SCH (13:00)
[2016-07-10] MEDS ORDERED: NS IV SCH (13:00)
[2016-07-11] MEDS: SODIUM CHLORIDE 0.9% INJ SCH (04:48)
[2016-07-11] MEDS: PROTONIX IV SCH (04:48)
[2016-07-11] MEDS: FLAGYL 500 MG/NS 500 MG/100 ML IVPB IV SCH ×2 (04:48→11:14)
[2016-07-11] MEDS: CARAFATE LIQUID PO SCH ×3 (04:48→13:56)
[2016-07-11 07:08] LABS: BASO% 0.5 % (0.0-0.8); EOS# 0.12 X1000 (0.0-0.7); EOS% 2.7 % (0.0-10.0); HEMATOCRIT 25.7 % (42.0-52.0); HEMOGLOBIN 8.4 g/dL (14.0-18.0); IMM GRAN# 0.02 X1000 (0.0-0.04); IMM GRAN% 0.5 % (0.0-0.5); LYMPH# 1.24 X1000 (1.2-3.4); LYMPH% 28.2 % (20.5-51.1); MANUAL DIFF NEEDED? YES; MCH 30.3 PG (27-31); MCHC 32.7 g/dL (33-37); MCV 92.8 FL (81-99); MONO# 0.91 X1000 (0.11-0.59); MONO% 20.7 % (1.7-9.3); MPV 8.7 FL (7.4-10.4); NEUT% 47.4 % (42.2-75.2); PLT 396 X1000 (130-400); RBC 2.77 XMIL (4.7-6.1)
[2016-07-11] MEDS: TYLENOL PO PRN (07:35)
[2016-07-11 07:40] LABS: LYMPHS 30 % (21-51); MONO 2 % (1-9)
[2016-07-11 07:41] LABS: POTASSIUM 4.6 mmol/L (3.5-5.1)
[2016-07-11 07:43] VITALS: BP 107/55
[2016-07-11] MEDS: PREMARIN PO SCH (11:11)
[2016-07-11] MEDS: NEUTRA-PHOS PO SCH ×2 (11:11→13:56)
[2016-07-11] MEDS: METAMUCIL PO SCH ×2 (11:12)
[2016-07-11] MEDS: ICAR-C PO SCH (11:12)
[2016-07-11] MEDS: ELMIRON PO SCH (11:12)
[2016-07-11] MEDS: CELEXA PO SCH (11:13)
[2016-07-11] MEDS: CENTRUM SILVER PO SCH (11:13)
[2016-07-11] MEDS: ANUSOL-HC CREAM PR SCH (11:14)
--- NOTE | 2016-07-12 08:23 | DISCHARGE SUMMARY ---
ADMISSION DATE: 07/03/2016 DISCHARGE DATE: 07/11/2016 CONSULTATIONS: 1. Dr. Bruce Guthrie with Urology. 2. Dr. Melendez with GI. PERTINENT PROCEDURES: 1. Abdomen and pelvis CT showed new relatively large hematoma in the urinary bladder. Stable cystitis, no obvious colitis, cholelithiasis. 2. Cystoscopic exam. 3. Clot irrigation fulgurating of diffuse bleeding areas, exchange of suprapubic tube. 4. Placement of urethral Elias catheter performed by Dr. Bruce Guthrie. DISCHARGE DIAGNOSES: 1. Blood loss secondary to hemorrhagic cystitis and that is likely secondary to radiation. H H has been stable. After receiving 2 units of PRBCs, patient is still having hematuria followed by Dr. Guthrie. Stable for discharge. 2. Iron-deficiency anemia. Continue iron supplementation. 3. Urinary tract infection. Cultures have been negative. Antibiotics were stopped. 4. Hypertension stable. 5. Chronic kidney disease stage 3. Creatinine is around baseline. 6. Prostate cancer. History with radiation, aware. HOSPITAL COURSE: Briefly, Mr. Krause is an 85-year-old, male with a past medical history of chronic kidney disease stage 3, recent colitis, hypertension, prostate cancer status post radiation treatment, peptic ulcer disease with duodenal ulcer in the past, iron-deficiency anemia and suprapubic catheter followed by Dr. Guthrie in an outpatient setting. Patient on admission for 2-1/2 weeks. He noticed bleeding from around his catheter site, urine escaping from around last night and blood in the urine. For the last week he has had some abdominal sharp stabbing pain on occasion with diarrhea. He states his stools were black. He had 3-4 stools per day. He had already had 3 black stools on the morning of his admission. For 2 days he had a temperature as high as 101. He did complain of dysuria and foul-smelling urine, a weight loss of 30 pounds over the last year with very poor appetite due to increased nausea in the morning. Patient in the ED was worked up and did have stools that were positive for blood. Hemoglobin and hematocrit was 7 and 21. Patient was given 1 unit of blood and FFP with urology consult, as well as GI for the positive blood in the stools. His abdominal pelvic CT showed that he had a large hematoma in the urinary bladder and stable with cystitis. He was started on a Protonix drip as well as Carafate, started on IV antibiotics. Dr. Guthrie did perform a cystoscopic exam, clot irrigation fulgurating diffuse bleeding areas, exchange of suprapubic catheter and placement of urethral Elias catheter with the continuous bladder irrigation in through the suprapubic tube and out through urethral Elias. GI did evaluate the patient. They checked an inflammatory bowel disease to evaluate for Crohn disease and ulcerative colitis. He was started on Metamucil twice a day, Protonix IV b.i.d. as well as Icar C b.i.d. and avoid NSAIDs. They felt that his current anemia was secondary to his hemorrhagic cystitis. Patient had a total of 4 units of blood. His urine cultures turned out to be negative. His IV antibiotics were stopped. Dr. Wellington has talked with Dr. Guthrie. They feel that the patient is appropriate for discharge today. PHYSICAL EXAMINATION: Vital signs: At time of discharge, temperature is 97.5 degrees, heart rate 56, respirations 16, blood pressure 170/55, O2 is 100% on room air. DISCHARGE DIET: Regular with Ensure with each meal. DISCHARGE MEDICATIONS: 1. Citalopram 10 mg p.o. daily. 2. Estrogen conjugated 0.625 mg p.o. b.i.d. 3. Anusol IA b.i.d. 4. Metamucil p.o. daily. 5. Icar C 1 each p.o. b.i.d. 6. Levaquin 500 mg p.o. daily. 7. Multivitamin 1 each p.o. daily. 8. Protonix 40 mg p.o. daily. 9. Elmiron 100 mg p.o. at 9 a.m. 10. Carafate 1 g p.o. 4 times a day. FOLLOWUP: The patient is being discharged home with his . He can follow up with Dr. Bruce Guthrie, as well as Dr. Melendez, and his primary care physician, Dr. Liu, in 7-10 days. Patient can return to the ED for any worsening of symptoms. Patient also received a.m. ICAR infusion per Dr. Guthrie while he was in the hospital. DISCHARGE TIME: 30 minutes. Dictated by BAYRON Espino for Nilo Easton MD cc: MD Kathi Isidro MD
== END 2016-07-11 14:32 | disposition home or self-care (01) ==
LOC: ED 09:59 → SUATTDRO 17:40 → 3N 17:40
PROVIDERS: ATTEND Internal Medicine

== ENCOUNTER 2016-07-19 14:16 | Inpatient (IN) ==
--- NOTE | 2016-07-19 16:17 | PROVIDER DOCUMENTATION ---
HPI-Male Problem - General Chief Complaint: UTI Symptoms Stated Complaint: PEEING BLOOD Time Seen by Provider: 07/19/16 15:26 Source: patient, family Allergies/Adverse Reactions: Patient Allergies Allergy/AdvReac Type Severity Reaction Status Date / Time No Known Allergies Allergy Verified 07/19/16 15:18 Home Medications: Home Medication List Medication Instructions Recorded Confirmed Last Taken Type Inulin [Metamucil] 330.6 gm PO DAILY #1 powder 05/24/16 07/19/16 07/19/16 Rx Iron Carbonyl/Ascorbic Acid 1 each PO BID #60 tablet 05/24/16 07/19/16 07/19/16 Rx [Icar-C] Multivitamins/Minerals [Centrum 1 each PO DAILY #30 tablet 05/24/16 07/19/16 Rx Silver] Pantoprazole Sodium [Protonix] 40 mg PO DAILY #30 tablet. 05/24/16 07/19/16 Rx Citalopram Hydrobromide 10 mg PO DAILY #30 tablet 07/11/16 07/19/16 07/19/16 Rx [Citalopram HBr] Estrogens, Conjugated [Premarin] 0.625 mg PO BID #60 tablet 07/11/16 07/19/16 Rx Pentosan [Elmiron] 100 mg PO 0900,1500,2100 #90 07/11/16 07/19/16 07/19/16 Rx capsule Sucralfate [Carafate] 1 gm PO 4XDAY #120 tablet 07/11/16 07/19/16 07/19/16 Rx - History of Present Illness-Male Nature of Presenting Problem: Reports hematuria since 1-2 weeks ago. Pt has a suprapubic cath sicne 4 month ago due to BPH caused urinary obstruction. Reports he was admitted for this one week ago for it. Dr. Guthrie is the Urologist. Pt denie F/C/N/V and no other concerns. Pt had CT done for the hematuria and it was diagnosed bladder hematoma. Location of Complaint: reports: suprapubic Radiation: reports: none Quality of Pain: reports: none Severity in ED: reports: moderate Onset/Duration: reports: 1 week ago Timing: reports: still present Context/Activities at Onset: reports: none Urinary Symptoms: reports: frequency, hematuria. denies: anuria, dysuria, dribbling, hesitancy, incontinent, nocturia, retention, urgency Associated Symptoms: reports: denies symptoms Similar Symptoms Previously?: No Recently seen or treated by another doctor?: No Review of Systems - Adult - REVIEW OF SYSTEMS - ADULT Constitutional: reports: no symptoms reported Eyes: reports: no symptoms reported Ears, Nose, Mouth & Throat: reports: no symptoms reported Cardiovascular: reports: no symptoms reported Respiratory: reports: no symptoms reported Gastrointestinal: reports: no symptoms reported Genitourinary: reports: see HPI, hematuria. denies: discharge, hesitency Musculoskeletal: reports: no symptoms reported Integumentary: reports: no symptoms reported Neurological: reports: no symptoms reported Psychiatric: reports: no symptoms reported Endocrine: reports: no symptoms reported Hematologic/Lymphatic: reports: no symptoms reported Allergic/Immunologic: reports: no symptoms reported All Other Systems: Reviewed and Negative Past History - Adult - PAST MEDICAL HISTORY-ADULT Review of Records: reports: Old Records Reviewed, Nursing Assessment Review, Medications Reviewed Major Childhood Illnesses: reports: denies history Cardiovascular: reports: HTN Respiratory: reports: denies history Gastrointestinal: reports: GI bleed, ulcer Obstetrical/Gynecological: reports: denies history Genitourinary: reports: kidney disease, prostate cancer, other (suprapubic catheter) Musculoskeletal: reports: denies history Neurological: reports: denies history Endocrine/Immune: reports: denies history Other Conditions: reports: denies history - PRIOR SURGERIES/PROCEDURES Surgical/Procedure History: reports: reviewed, not pertinent - IMMUNIZATION STATUS Childhood Immunizations: See Nurse Assessment Flu Vaccine: See Nurse Assessment - FAMILY HISTORY Family History: reviewed, not pertinent Physical Exam-General - PHYSICAL EXAM-ADULT Initial Vital Signs Reviewed: Yes - CONSTITUTIONAL General Appearance: appears well, alert, no apparent distress - EYES Eyes: PERRL/EOMI, pink conjunctivae - HEAD, EARS, NOSE, MOUTH & THROAT HENMT: normocephalic/atraumatic, moist mucous membranes, normal ENT inspection, TMs normal, pharynx normal - NECK Neck: non-tender, full range of motion, supple, normal inspection - RESPIRATORY Respiratory: chest non-tender, lungs clear, normal breath sounds, no pleuratic chest pain, no respiratory distress, no accessory muscle use - CARDIOVASCULAR Cardiovascular: normal peripheral pulses, regular rate, rhythm, no edema, no gallop, no JVD, no murmur - GASTROINTESTINAL (ABDOMEN) Abdominal Exam: normal bowel sounds, non tender, soft, no organomegaly, no pulsatile mass, other (Suprapubic cath in place and urine with dark red colored. 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, no motor/sensory deficits - PSYCHIATRIC Psych/Mental Status: normal mood/affect, normal thought content, normal thought process, oriented x 3 Progress - PLAN OF CARE/RESULTS Progress/Plan/Lab Results: Vital Signs - 8 hr 07/19/16 14:41 Temperature 97.7 F Pulse Rate 71 Respiratory Rate 18 Blood Pressure 115/42 O2 Sat by Pulse Oximetry 100 Laboratory Results - last 24 hr 07/19/16 07/19/16 07/19/16 16:11 16:11 16:11 WBC 4.91 RBC 2.58 L Hgb 7.7 L Hct 23.8 L MCV 92.2 MCH 29.8 MCHC 32.4 L RDW Std Deviation 15.7 H Plt Count 426 H MPV 8.7 Immature Gran % (Auto) 0.0 Neut % (Auto) 54.4 Lymph % (Auto) 26.7 [place] % (Auto) 15.1 H Eos % (Auto) 2.2 Baso % (Auto) 1.6 H Immature Gran # (Auto) 0.00 Neut # (Auto) 2.67 Lymph # (Auto) 1.31 [place] # (Auto) 0.74 H Eos # (Auto) 0.11 Baso # (Auto) 0.08 PT 10.7 INR 1.02 PTT (Actin FS) 28.2 Sodium 131 L Potassium 5.7 H Chloride 98 Carbon Dioxide 22 L Anion Gap 11 BUN 31 H Creatinine 1.5 H Estimated GFR/1.73 m2 44 BUN/Creatinine Ratio 21 Glucose 85 Calculated Osmolality 268 Calcium 9.1 Total Bilirubin 0.25 AST 20 ALT 12 Alkaline Phosphatase 73 Total Protein 6.7 Albumin 3.3 L Globulin 3.4 Albumin/Globulin Ratio 1.0 Amylase 128 Lipase 59 Urine Source Urine Color Urine Turbidity Urine pH Ur Specific [place] Urine Protein Ur Glucose (Stick) Ur Ketones (Stick) Urine Blood Urine Nitrite Urine Bilirubin Urobilinogen Dipstick Urine Leukocytes Urine WBC (Auto) Urine RBC (Auto) U Epithel Cells (Auto) Urine Bacteria (Auto) Urine Crystals Small Round Cells Urine Casts Urine Yeast-like Cells 07/19/16 16:15 WBC RBC Hgb Hct MCV MCH MCHC RDW Std Deviation Plt Count MPV Immature Gran % (Auto) Neut % (Auto) Lymph % (Auto) [place] % (Auto) Eos % (Auto) Baso % (Auto) Immature Gran # (Auto) Neut # (Auto) Lymph # (Auto) [place] # (Auto) Eos # (Auto) Baso # (Auto) PT INR PTT (Actin FS) Sodium Potassium Chloride Carbon Dioxide Anion Gap BUN Creatinine Estimated GFR/1.73 m2 BUN/Creatinine Ratio Glucose Calculated Osmolality Calcium Total Bilirubin AST ALT Alkaline Phosphatase Total Protein Albumin Globulin Albumin/Globulin Ratio Amylase Lipase Urine Source CATH Urine Color BROWN Urine Turbidity TURBID Urine pH 5.5 Ur Specific [place] 1.012 Urine Protein 100 A Ur Glucose (Stick) NEGATIVE Ur Ketones (Stick) NEGATIVE Urine Blood LARGE A Urine Nitrite NEGATIVE Urine Bilirubin NEGATIVE Urobilinogen Dipstick NORMAL Urine Leukocytes LARGE A Urine WBC (Auto) TNTC A Urine RBC (Auto) TNTC A U Epithel Cells (Auto) <10 Urine Bacteria (Auto) NEGATIVE Urine Crystals NONE SEEN Small Round Cells NONE SEEN Urine Casts NONE SEEN Urine Yeast-like Cells NONE SEEN Orders Category Date Time Status Saline Loc DIRECTED Care 07/19/16 15:55 Active NPO Diet 07/19/16 15:55 Active US ABDOMEN-COMPLETE [US] Stat Exams 07/19/16 15:55 Taken AMYLASE [CHEM] Stat Lab 07/19/16 16:11 Completed CBC WITH ELECTRONIC DIFF [HEME] Stat Lab 07/19/16 16:11 Completed COMPREHENSIVE METABOLIC PANEL [CHEM] Stat Lab 07/19/16 16:11 Completed LIPASE [CHEM] Stat Lab 07/19/16 16:11 Completed PROTIME WITH INR [COAG] Stat Lab 07/19/16 16:11 Completed PTT [COAG] Stat Lab 07/19/16 16:11 Completed UA NIMS W/REFLEX CULT [URINALYSIS] Stat Lab 07/19/16 16:15 Completed URINE CULTURE [RM] Routine Lab 07/19/16 16:32 Received URINE MANUAL MICROSCOPIC [URINALYSIS] Stat Lab 07/19/16 16:15 Completed CefTRIAXONE 1 GM/NS [Rocephin 1 gm/Ns] Med 07/19/16 17:42 Active 1 gm in 50 ml IV NOW Result Diagrams: 07/19/16 16:11 07/19/16 16:11 - CONSULTS/PCP/HOSPITALIST Notification Time Discussed: 17:55 Reason/Comments: Admit to Dr. Hare Departure - Departure Time of Disposition Decision: 17:55 DIAGNOSIS: Hematuria Anemia Qualifiers: Anemia type: unspecified type Qualified Code(s): D64.9 - Anemia, unspecified Disposition: ADMITTED INPATIENT 09 Certified Medical Emergency: Emergent Condition: Stable Referrals and Follow-Ups: Kathi Liu MD [Primary Care Provider] - - Critical Care Note This patient required my direct personal management.: No
[2016-07-19 16:18] LABS: MANUAL DIFF NEEDED? NO
[2016-07-19 16:23] LABS: URINE SOURCE CATH
[2016-07-19 16:30] LABS: BASO% 1.6 % (0.0-0.8); EOS# 0.11 X1000 (0.0-0.7); EOS% 2.2 % (0.0-10.0); HEMATOCRIT 23.8 % (42.0-52.0); HEMOGLOBIN 7.7 g/dL (14.0-18.0); LYMPH# 1.31 X1000 (1.2-3.4); LYMPH% 26.7 % (20.5-51.1); MCH 29.8 PG (27-31); MCHC 32.4 g/dL (33-37); MCV 92.2 FL (81-99); MONO# 0.74 X1000 (0.11-0.59); MONO% 15.1 % (1.7-9.3); MPV 8.7 FL (7.4-10.4); NEUT% 54.4 % (42.2-75.2); PLT 426 X1000 (130-400); RBC 2.58 XMIL (4.7-6.1)
[2016-07-19 16:30] LABS: BILIRUBIN URINE NEGATIVE (NEGATIVE); BLOOD URINE LARGE (NEGATIVE); COLOR BROWN; GLUCOSE URINE NEGATIVE (NEGATIVE); LEUKOCYTES URINE LARGE (NEGATIVE); NITRITE URINE NEGATIVE (NEGATIVE); PH URINE 5.5; PROTEIN URINE 100 mg/dL (NEGATIVE); SP GRAVITY URINE 1.012; TURBIDITY URINE TURBID (CLEAR); UR EPITHELIAL CELLS <10 /HPF (<10); URINE BACTERIA NEGATIVE /HPF; URINE CULTURE NEEDED? YES; URINE MICRO REVIEW NEEDED? YES; URINE RBC TNTC /HPF (<10); URINE WBC TNTC /HPF (<10); UROBILINOGEN URINE NORMAL (NORMAL)
[2016-07-19 16:36] LABS: ALBUMIN 3.3 g/dL (3.5-5.0); CALCIUM 9.1 mg/dL (8.8-10.2); POTASSIUM 5.7 mmol/L (3.5-5.1); TOTAL BILIRUBIN 0.25 mg/dL (0.20-1.00); TOTAL PROTEIN 6.7 g/dL (6.3-8.3)
[2016-07-19 16:57] LABS: URINE CASTS NONE SEEN; URINE CRYSTALS NONE SEEN; URINE SMALL ROUND CELLS NONE SEEN
[2016-07-19 16:57] LABS: INR 1.02; PROTIME 10.7 Seconds (9.2-11.7); PTT 28.2 Seconds (22.0-36.0)
[2016-07-19] MEDS ORDERED: ROCEPHIN 1 GM/NS 1 GM/50 ML IVPB IV ONE (17:42)
[2016-07-19] MEDS ORDERED: ZOFRAN IV PRN (19:51)
[2016-07-19] MEDS ORDERED: TYLENOL PO PRN (19:51)
--- NOTE | 2016-07-19 20:06 | HISTORY AND PHYSICAL ---
PRIMARY CARE PROVIDER: Kathi Liu MD. PRIMARY UROLOGIST: Bruce Guthrie MD. CHIEF COMPLAINT: The patient states that he was recently admitted for hematoma and his urine had cleared up from blood. He states resumed having blood from the suprapubic catheter starting about 4-5 days after his last admission and now today developed some dizziness. HISTORY OF PRESENT ILLNESS: Mr. Ildefonso Obrien is an 85-year-old male. He has a past medical history of prostate cancer status post radiation treatment, iron deficiency anemia, peptic and duodenal ulcer, colitis who has been followed by Dr. Guthrie for a suprapubic catheter. He had a most recent admission for hematoma in the bladder. He underwent cystoscopic examination, clot irrigation with exchange of suprapubic tube and placement of urethral Elias catheter which is now gone. The patient states that he had clear yellow urine on discharge which was 07/11/2016 and states about 4-5 days later he started having blood in the urine again. About 2 -3 days ago he went to see Dr. Guthrie who said just to watch it, to irrigate it at home which the patient states he has irrigated several times. He will irrigate it when he starts developing pain and he says large blood clots will come out. Dr. Guthrie also told him that if he becomes dizzy to come to the hospital, and today he developed some dizziness. He did not pass out. He denies any dysuria. He states that he does still have some urine that comes through the urethra and that it is bloody in nature. His urinalysis has a large amount of blood and his catheter bag has a large amount of blood. We will consult Dr. Guthrie for further recommendations. PAST MEDICAL HISTORY: CKD stage 3, recent colitis, hypertension, prostate cancer status post radiation treatment, peptic ulcer disease with duodenal ulcer in the past, iron deficiency anemia, most recently a large bladder hematoma and stable cystitis. 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 SOCIAL HISTORY: Denies tobacco, alcohol or drug use. He uses a walker or cane to ambulate. FAMILY HISTORY: Noncontributory. REVIEW OF SYSTEMS: Fourteen point review of systems were complete and all were negative except for those mentioned in the above HPI. ALLERGIES: No known drug allergies. HOME MEDICATIONS: Citalopram 10 mg p.o. daily, 0.625 mg p.o. twice daily, Metamucil daily, Icar 1 tab p.o. twice daily, Centrum Silver 1 tab p.o. daily, Protonix 40 mg p.o. daily, Elmiron 100 mg p.o. at 9:30 at night, Carafate 1 g p.o. 4 times a day. LABORATORY DATA: White blood cells 4000, hemoglobin 7.7, hematocrit 23.8, platelet count 426,000, INR 1.02, PTT is 28.2, sodium 131, potassium 5.7, BUN 31, creatinine 1.5, glucose 85, calcium 9.1, total bilirubin 0.25, AST 20, ALT 12, albumin 3.3, amylase 128, lipase 59. Urinalysis: 100 protein, large blood, negative for nitrites, large leukocytes, too numerous to count white blood cells, too numerous to count red blood cells, otherwise negative. IMAGING: Abdominal ultrasound not fully reported yet. PHYSICAL EXAMINATION: VITAL SIGNS: Temperature 97.7 degrees, heart rate 71, respiratory rate 18, blood pressure 115/42, O2 saturations 100%. 5 feet 8 inches tall, 150 pounds, BMI 22.8. GENERAL: Mr. Obrien is an 85-year-old, male. He is in no acute distress. He is able to answer all questions appropriately. HEENT: Atraumatic, normocephalic. Pupils equal, round, reactive to light. Extraocular movements are intact. Mucous membranes are dry. NECK: No JVD or carotid bruits noted. CARDIOVASCULAR: S1, S2. Regular rate and rhythm. No rubs, gallops, murmurs. PULMONARY: Clear to auscultation. Bilateral breath sounds. No accessory muscle use or work of breathing noted. GASTROINTESTINAL: Soft, nontender, nondistended. Positive bowel sounds x4.. EXTREMITIES: No edema noted. +2 dorsalis and radial pulses. NEUROLOGIC: A and O x4. Moves all extremities equally. GENITOURINARY: Suprapubic catheter in place draining bloody urine bright red with some drainage around the suprapubic stoma. SKIN: Warm, dry, intact. ASSESSMENT AND PLAN: 1. Significant hematuria causing acute blood loss anemia that is symptomatic in nature. He started to have dizziness today. He was informed by Dr. Guthrie to seek medical attention if he started to have dizziness. We will transfuse 1 unit of packed red blood cells. Reconsult Dr. Guthrie. 2. Recent history of large hematoma in the bladder. Again we will consult Dr. Guthrie. Awaiting ultrasound results. 3. Chronic kidney disease stage 3, is stable. 4. Peptic ulcer disease with duodenal ulcer in the past. Continue with Carafate , proton pump inhibitor. 5. Iron-deficiency anemia. Continue iron supplementation. 6. Hypertension stable. 7. 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 8. Deep venous thrombosis prophylaxis. SCDs given hematuria. Dictated by BAYRON Blue for Cb Pruitt MD cc: BAYRON Blue MD Bhavna Gowda, MD William E. Hughes, MD BETHESDA HOSPITALLorie
[2016-07-19] MEDS: PREMARIN PO SCH (21:31)
[2016-07-19] MEDS: NS 1,000 ML IV SCH (21:31)
[2016-07-19] MEDS: CARAFATE PO SCH (21:32)
[2016-07-19] MEDS: ICAR-C PO SCH (21:32)
[2016-07-19] MEDS: ELMIRON PO SCH (21:36)
[2016-07-19] MEDS: NORCO-5 PO PRN (23:42)
--- NOTE | 2016-07-20 01:08 | Diag Imaging Result Document ---
PROCEDURE NAME: US ABDOMEN-COMPLETE - 07/19/2016 ULTRASOUND ABDOMEN: FINDINGS: The right kidney measures 10.1 x 4.7 x 5.2 cm in size. The left kidney measures 10.3 x 5 x 6.1 cm in size. There are bilateral renal cysts which measure up to 2.6 cm on the right and 4.6 cm on the left. There is no solid-appearing renal mass identified. There is no hydronephrosis identified. Images of the urinary bladder show the bladder to be largely decompressed by a Elias catheter which limits evaluation. There are no abnormalities of the liver or spleen identified. The gallbladder pantoja appear thickened up to 6 mm. However, there is no evidence of gallstones, there is no fluid seen around the gallbladder. The technologist reports negative sonographic Owusu's sign. The common bile duct is normal caliber at 5 mm. Visualized portions of the pancreas are unremarkable. Abdominal aorta and IVC appear normal caliber. IMPRESSION: 1. Bilateral renal cysts. No hydronephrosis. The urinary bladder is decompressed by a Elias catheter and is not well evaluated. 2. Apparent thickened gallbladder pantoja, but no evidence of gallstones. Preliminary results were provided on the evening of 07/19/2016.
[2016-07-20] MEDS ORDERED: DEMEROL IV ONE (02:06)
[2016-07-20] MEDS: NORCO-5 PO PRN ×3 (04:33→15:15)
[2016-07-20] MEDS: NS 1,000 ML IV SCH ×4 (06:43→21:10)
[2016-07-20 07:01] LABS: MANUAL DIFF NEEDED? NO
[2016-07-20 07:21] LABS: BASO% 0.3 % (0.0-0.8); HEMATOCRIT 25.1 % (42.0-52.0); HEMOGLOBIN 8.3 g/dL (14.0-18.0); LYMPH# 0.72 X1000 (1.2-3.4); MCH 29.7 PG (27-31); MCHC 33.1 g/dL (33-37); MONO# 0.74 X1000 (0.11-0.59); MONO% 9.3 % (1.7-9.3); NEUT% 81.4 % (42.2-75.2); PLT 420 X1000 (130-400); RBC 2.79 XMIL (4.7-6.1)
[2016-07-20 07:26] LABS: INR 1.05; PROTIME 11.1 Seconds (9.2-11.7); PTT 30.3 Seconds (22.0-36.0)
[2016-07-20 07:36] LABS: ALBUMIN 2.9 g/dL (3.5-5.0); CALCIUM 9.3 mg/dL (8.8-10.2); MAGNESIUM 1.6 mg/dL (1.5-2.7); TOTAL BILIRUBIN 0.48 mg/dL (0.20-1.00); TOTAL PROTEIN 6.7 g/dL (6.3-8.3)
[2016-07-20] MEDS: PREMARIN PO SCH ×2 (09:25→20:24)
[2016-07-20] MEDS: METAMUCIL POWDER PACKET PO SCH (09:25)
[2016-07-20] MEDS: CENTRUM SILVER PO SCH (09:25)
[2016-07-20] MEDS: CARAFATE PO SCH ×4 (09:25→20:24)
[2016-07-20] MEDS: CELEXA PO SCH (09:25)
[2016-07-20] MEDS: ICAR-C PO SCH ×2 (09:25→20:24)
[2016-07-20] MEDS: ELMIRON PO SCH ×3 (09:26→20:24)
[2016-07-20] MEDS: PRILOSEC PO SCH (09:26)
--- NOTE | 2016-07-20 11:24 | PROGRESS NOTE ---
DATE: 07/20/2016 SUBJECTIVE: Today, Mr. Obrien referred to be hurting in his genitals and around the suprapubic catheter area. OBJECTIVELY: Vital Signs: Blood pressure is 137/67, pulse of 97, respirations 20, temperature is 97.8 degrees. General: Mr. Obrien is an 85-year-old male. He was in bed, not seemingly distressed. HEENT: Mucosa is pink and moist. Anicteric. Acyanotic. Neck: Supple. Chest: Good air entry bilateral. No crepitations. No rhonchi. Cardiovascular : Regular rate and rhythm. Abdomen: Soft, nontender. There is a suprapubic catheter in place. It has some bleeding around the entrance entry point. Patient also has some bleeding through the penis. Central Nervous System: Patient is alert and oriented x4. No focal neurological deficit. LABORATORY DATA: WBC is 7.98. Hemoglobin is 8.3 after a unit of PRBC. Platelet count is normal at 420,000. Chemistry is reviewed. Sodium is 121, potassium is 5.0, chloride 97, bicarbonate 16, creatinine is 2.0. ASSESSMENT: 1. Dizziness on presentation, likely due to symptomatic anemia. Patient is status post 1 packed red blood cells transfusions. This has improved. 2. Hematuria. The patient has a history of hemorrhagic cystitis. He was just recently discharged from the hospital after undergoing urological intervention. Urine got cleared and after about 4 days at home he started having some hematuria, needing to be transfused yesterday. Dr. Guthrie has been consulted. 3. Chronic kidney disease, stage 3B. Stable. 4. History of peptic ulcer disease in the past. 5. Iron deficiency. We will continue with supplements. In general, the main issue is that Mr. Obrien became dizzy due to acute blood loss. He is status post 1 packed red blood cells transfusion. Hemoglobin and hematocrit are 8.3 and 25.1. We will keep an eye on this. Urology has been consulted to evaluate again for the hematuria which has caused a drop in hemoglobin and hematocrit. cc: MD TIERRA Soria
[2016-07-20] MEDS: MORPHINE IV PRN (13:20)
[2016-07-20] MEDS ORDERED: B & O 15A SUPP PR ONE (16:52)
[2016-07-20] MEDS ORDERED: B & O 15A SUPP PR PRN (16:53)
--- NOTE | 2016-07-20 17:56 | CONSULTATION ---
DATE OF CONSULTATION: 07/20/2016 CONSULTING PHYSICIAN: Cb Pruitt MD. REASON FOR CONSULTATION: Hematuria, anemia. HISTORY OF PRESENT ILLNESS: This is an 85-year-old male who is a patient of Dr. Guthrie. He has a history of PSA elevation up to 17.5. He was diagnosed with prostate adenocarcinoma in 2011. He elected to proceed with external beam radiation which he completed in May 2012. He has had obstructive voiding even post treatment and underwent channel transurethral resection of the prostate in 2013. 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 He was recently hospitalized with acute blood loss anemia and clot retention. He underwent cystoscopy with clot irrigation, fulguration of diffuse bleeding and exchange of suprapubic tube as well as urethral Elias placement 2 weeks ago. He was discharged home in stable condition and reports that he did well for several days. He redeveloped hematuria with clots and has irrigated himself but continues to have a significant amount of blood in the suprapubic tube and developed dizziness. Hence he presented to the hospital. Upon admission his hematocrit was noted to be 23.8. He underwent abdominal ultrasound on 07/19/2016 which revealed no evidence of hydroureteronephrosis, it did show bilateral renal cysts which have been seen in the past. He reports considerable suprapubic pain and sensation of spasms. He has had bloody urine through the suprapubic tube and had Nursing staff irrigate him manually reportedly. He continues to have discomfort. PAST MEDICAL HISTORY: Prostate adenocarcinoma, chronic kidney disease, hypertension, peptic ulcer disease, anemia. PAST SURGICAL HISTORY: [place] tooth extraction, vocal cord surgery, channel TURP, urethral stricture dilation, suprapubic tube placement, clot irrigation and fulguration of bleeding. ALLERGIES: No known drug allergies. MEDICATIONS: Carafate, Elmiron, Protonix, multivitamin, Metamucil and citalopram. SOCIAL HISTORY: Denies tobacco, alcohol or drug use. FAMILY HISTORY: Negative for malignancies. REVIEW OF SYSTEMS: Reviewed and 12 systems were negative with the exception of the HPI. PHYSICAL EXAMINATION: Vital Signs: T 97.9 degrees, P 91, BP 149/71. General: No acute distress. Pleasant male. HEENT: Normocephalic, atraumatic. Cardiovascular: Regular rate and rhythm. Pulmonary: Bilateral breath sounds. Abdomen: Nontender to palpation. Suprapubic tube in place draining red urine. Bladder is nondistended. Dermatologic: No obvious skin rashes. Lymphatic: No groin lymphadenopathy. Genitourinary: Normal meatus. Normal phallus. Psychiatric: Appropriate mood and affect. PERTINENT LABS: Hematocrit is 25 which is status post 1 unit of packed red blood cells administered on 07/19/2016, creatinine is 2, INR is 1.05. PERTINENT IMAGES: Abdominal ultrasound as per HPI. 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 I had prepped and draped the patient in a sterile fashion, removed the 20-[place] suprapubic catheter, replaced it in a sterile fashion with a 22- [place]ian 3-way hematuria catheter, manually irrigated a significant amount of clots which took me approximately 30 minutes. I then connected the patient to continuous bladder irrigation with sterile water. Nursing staff was at bedside and was instructed to continue the irrigation and exchange back the fluids if necessary. I have discussed with the patient. His difficult situation. We discussed that if he continues to drop his hematocrit, the hematuria does not conservatively improved, he may have to go for cystoscopy under anesthesia with fulguration of bleeding. I have discussed this patient with Dr. Guthrie in the past and have explained to the patient that he may want to consider trying hyperbaric oxygen treatment which is not performed at [facility]. PLAN: 1. Continue his bladder irrigation via suprapubic tube. 2. I agree with monitoring hematocrit. 3. Transfuse as needed. 4. If he continues to drop his hematocrit and hematuria does not improve with continuous irrigation, we will revisit with the patient for a trip to the OR with fulguration of bleeding although again his long-term outcome will likely be improved if he considers hyperbaric oxygen therapy. Thank you for the consultation. cc: Minh Sylvester MD
[2016-07-21] MEDS: MORPHINE IV PRN ×2 (01:18→22:34)
[2016-07-21] MEDS: NORCO-5 PO PRN (03:03)
[2016-07-21] MEDS: NS 1,000 ML IV SCH ×3 (06:32→20:45)
[2016-07-21 06:49] LABS: MANUAL DIFF NEEDED? NO
[2016-07-21 06:50] LABS: BASO% 0.7 % (0.0-0.8); EOS# 0.06 X1000 (0.0-0.7); EOS% 1.4 % (0.0-10.0); HEMATOCRIT 18.2 % (42.0-52.0); LYMPH# 1.01 X1000 (1.2-3.4); MCH 30.2 PG (27-31); MCV 91.5 FL (81-99); MONO# 0.64 X1000 (0.11-0.59); MONO% 14.5 % (1.7-9.3); MPV 8.9 FL (7.4-10.4); NEUT% 60.4 % (42.2-75.2); PLT 342 X1000 (130-400); RBC 1.99 XMIL (4.7-6.1)
[2016-07-21 07:01] LABS: CALCIUM 8.8 mg/dL (8.8-10.2); POTASSIUM 5.2 mmol/L (3.5-5.1)
--- NOTE | 2016-07-21 08:13 | PROGRESS NOTE ---
DATE: 07/21/2016 SUBJECTIVE: Mr. Obrien reports having a better night overnight. He has slept better. He has continued on bladder irrigation with urine looking relatively clear. OBJECTIVE: Vital Signs: T 97.7 degrees, P 84, BP 150/70. General: No acute distress. HEENT: Normocephalic, atraumatic. Abdomen: Nontender, nondistended. : Bladder is nontender to palpation. Elias catheter in place via suprapubic tract with light pink urine draining without any clots. PERTINENT LABS: His hematocrit is down to 18 this morning from 25 yesterday. Creatinine is up to 2.3 from 2 yesterday. 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 His drop in hematocrit is likely related to the amount of bleeding and clot removed yesterday at bedside. He now seems to have temporized with respect to how his urine looks. His creatinine is likely related to the fact that he was in clot retention over several days. I have discussed with the patient that given the appearance of his urine we did not need to taken to the operating room today for fulguration, unless he continues to drop his hematocrit. PLAN: 1. Continue bladder irrigation, titrate as needed to keep urine pink and free of clots. 2. Transfusion per Dr. Pruitt's discretion. 3. If his hematocrit continues to drop we will plan for the trip to the OR tomorrow for fulguration of bleeding and clot evacuation. cc: Minh Sylvester MD
[2016-07-21] MEDS: CENTRUM SILVER PO SCH (09:51)
[2016-07-21] MEDS: ELMIRON PO SCH ×3 (09:51→20:48)
[2016-07-21] MEDS: ICAR-C PO SCH ×2 (09:51→22:35)
[2016-07-21] MEDS: PREMARIN PO SCH ×2 (09:52→20:48)
[2016-07-21] MEDS: PRILOSEC PO SCH (09:52)
[2016-07-21] MEDS: CELEXA PO SCH (09:52)
[2016-07-21] MEDS: CARAFATE PO SCH ×5 (09:52→22:34)
[2016-07-21] MEDS: METAMUCIL POWDER PACKET PO SCH (09:52)
--- NOTE | 2016-07-21 11:45 | PROGRESS NOTE ---
DATE: 07/21/2016 SUBJECTIVE: Today, Mr. Obrien referred to be doing a whole lot better. Suprapubic pain has improved since patient has been on the bladder irrigation therapy. OBJECTIVE: Vital Signs: Blood pressure is 108/65, pulse of 73, respirations are 18, temperature is 97.8 degrees. General Examination: Mr. Obrien is an 85-year-old, male. He is in bed, not seemingly in distress. HEENT: Mucosa is pink and moist. Anicteric and acyanotic. Neck: Supple. Chest: Clear. Cardiovascular: Regular rate and rhythm. Abdomen: Soft, nontender. There is a suprapubic catheter in place. There is bladder irrigation therapy ongoing. 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 Laboratory Data: WBC is 4.4, hemoglobin is 6, platelet count is 342,000. Chemistry is reviewed. Sodium 136, potassium is 5.2, chloride is 19, BUN is 31, creatinine is 2.3. The urine culture is growing more than 100,000 colony counts of gram-negative rods. ASSESSMENT: 1. Dizziness on presentation due to symptomatic anemia. 2. Hematuria. Patient has a history of hemorrhagic cystitis. He is currently on bladder irrigation therapy and being followed by urology. 3. Gram-negative rajesh urinary tract infection, will be pending on the identification and sensitivity. We will start the patient on cefepime. He did have pseudomonas urinary tract infection a couple of months back so we would cover for that until we know what the identification and sensitivity are on this current situation. 4. Chronic kidney disease stage IIIB. This has worsened slightly. I think is mainly due to bladder outlet obstruction from collapse. Hopefully, with the bladder irrigation, this will go back to its baseline. 5. Iron deficiency anemia. We will continue with supplements. In general, Mr. Obrien is a whole lot better. Pain is controlled. He will continue with the bladder irrigation therapy. We will start him on cefepime to cover pseudomonas until we know the identification on the urine culture. We are going to give him 2 units of blood because of remarkably low hemoglobin and hematocrit today. cc: Cb Pruitt MD MTDD
[2016-07-21] MEDS: MAXIPIME 1 GM/NS 1 GM/50 ML IVPB IV SCH ×2 (15:03→22:34)
[2016-07-22 06:09] LABS: MANUAL DIFF NEEDED? NO
[2016-07-22 06:19] LABS: BASO% 1.5 % (0.0-0.8); EOS# 0.18 X1000 (0.0-0.7); EOS% 4.5 % (0.0-10.0); HEMATOCRIT 24.1 % (42.0-52.0); LYMPH# 1.37 X1000 (1.2-3.4); LYMPH% 34.6 % (20.5-51.1); MCH 30.1 PG (27-31); MCHC 33.2 g/dL (33-37); MCV 90.6 FL (81-99); MONO# 0.58 X1000 (0.11-0.59); MONO% 14.6 % (1.7-9.3); MPV 8.8 FL (7.4-10.4); NEUT% 44.8 % (42.2-75.2); PLT 310 X1000 (130-400); RBC 2.66 XMIL (4.7-6.1)
--- NOTE | 2016-07-22 06:33 | EKG Report ---
Test Performed on : 07/20/2016 03:24:47 AM Test Reason : recheck tracing Blood Pressure : / mmHG Vent. Rate : 100 BPM Atrial Rate : 100 BPM P-R Int : 180 ms QRS Dur : 150 ms QT Int : 410 ms P-R-T Axes : 074 -06 112 degrees QTc Int : 528 ms Sinus rhythm. with occasional premature ventricular complexes. Left bundle branch block Abnormal ECG When compared with ECG of 04-JUL-2016 06:07, T wave inversion now evident in Lateral leads Confirmed by Ena BROWN, Preston Sykes ([id number]) on 07/22/2016 8:07:57 AM
[2016-07-22 06:45] LABS: CALCIUM 9.3 mg/dL (8.8-10.2); POTASSIUM 4.4 mmol/L (3.5-5.1)
[2016-07-22] MEDS: NS 1,000 ML IV SCH ×2 (07:09→18:15)
[2016-07-22] MEDS: ELMIRON PO SCH ×3 (09:25→21:03)
[2016-07-22] MEDS: PREMARIN PO SCH ×2 (09:31→21:03)
[2016-07-22] MEDS: CARAFATE PO SCH ×4 (09:31→21:03)
[2016-07-22] MEDS: PRILOSEC PO SCH (09:31)
[2016-07-22] MEDS: ICAR-C PO SCH ×2 (09:31→21:03)
[2016-07-22] MEDS: CELEXA PO SCH (09:31)
[2016-07-22] MEDS: CENTRUM SILVER PO SCH (09:31)
[2016-07-22] MEDS: METAMUCIL POWDER PACKET PO SCH (09:33)
[2016-07-22] MEDS: MAXIPIME 1 GM/NS 1 GM/50 ML IVPB IV SCH ×3 (10:23→22:59)
--- NOTE | 2016-07-22 15:36 | PROGRESS NOTE ---
DATE: 07/22/2016 SUBJECTIVE: Today. Mr. Obrien referred to be doing a whole lot better. Abdominal pain has subsided and hematuria is also improved. OBJECTIVE: Vital signs: Blood pressure is 134/61, pulse of 71, respirations 18, temperature is 97.5. General: Mr. Obrien is an 85-year-old, male. He was sitting up on the bedside in no distress. HEENT: Mucosa is pink and moist. Anicteric. Acyanotic. Neck: Supple. Chest: Clear. Cardiovascular: Regular rate and rhythm. Abdomen: Soft. Suprapubic catheter was in place and bladder irrigation therapy was also ongoing. 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 The suprapubic catheter was clear of any blood. LABORATORY DATA: Microbiology: So far urine culture is positive for Pseudomonas which is pansensitive. LABORATORY DATA: Hemoglobin is also 10.0 after 3 units of PRBC. Chemistry is also reviewed. Potassium is normal. Creatinine is down to 1.6 from 2.3 yesterday. ASSESSMENT: 1. Dizziness on presentation due to symptomatic anemia. The patient is status post 3 PRBC transfusions. Hemoglobin and hematocrit is stable. 2. Hematuria. The patient has a history of hemorrhagic cystitis. Urology is on board. Bladder irrigation therapy is in place. So far, the hematuria seems to have resolved. 3. Pseudomonal aeruginosa urinary tract infection. We will continue with the current cefepime. I hope to transition this to p.o. Levaquin when patient is ready to go. 4. Acute on chronic kidney disease. The patient will continue with the gentle hydration. The creatinine has slightly improved today. 5. Iron deficiency anemia. We will continue with the supplement. In general, I think Mr. Obrien is doing a whole lot better. The hematuria has improved. He is being followed also by Dr. Guthrie. We will continue with the bladder irrigation for today, as per urology recommendations. Hopefully, we will be able to discharge the patient home tomorrow on oral levofloxacin. cc: Cb Pruitt MD
[2016-07-22] MEDS: MORPHINE IV PRN (21:01)
[2016-07-23] MEDS: NS 1,000 ML IV SCH ×3 (00:50→21:46)
[2016-07-23 06:21] LABS: MANUAL DIFF NEEDED? NO
[2016-07-23 06:36] LABS: BASO% 1.1 % (0.0-0.8); EOS# 0.19 X1000 (0.0-0.7); EOS% 5.2 % (0.0-10.0); HEMATOCRIT 23.8 % (42.0-52.0); HEMOGLOBIN 7.8 g/dL (14.0-18.0); LYMPH# 1.13 X1000 (1.2-3.4); LYMPH% 31.2 % (20.5-51.1); MCH 29.9 PG (27-31); MCHC 32.8 g/dL (33-37); MCV 91.2 FL (81-99); MONO% 19.3 % (1.7-9.3); MPV 8.8 FL (7.4-10.4); NEUT% 43.2 % (42.2-75.2); PLT 253 X1000 (130-400); RBC 2.61 XMIL (4.7-6.1)
[2016-07-23 06:42] LABS: CALCIUM 8.7 mg/dL (8.8-10.2); POTASSIUM 4.6 mmol/L (3.5-5.1)
[2016-07-23] MEDS: ICAR-C PO SCH ×2 (11:00→21:42)
[2016-07-23] MEDS: MAXIPIME 1 GM/NS 1 GM/50 ML IVPB IV SCH ×2 (11:00→21:42)
[2016-07-23] MEDS: CARAFATE PO SCH ×4 (11:00→21:42)
[2016-07-23] MEDS: METAMUCIL POWDER PACKET PO SCH (11:00)
[2016-07-23] MEDS: CENTRUM SILVER PO SCH (11:00)
[2016-07-23] MEDS: PRILOSEC PO SCH (11:00)
[2016-07-23] MEDS: ELMIRON PO SCH ×3 (11:00→21:42)
[2016-07-23] MEDS: CELEXA PO SCH (11:01)
[2016-07-23] MEDS: PREMARIN PO SCH ×2 (11:10→21:42)
[2016-07-23] MEDS: MORPHINE IV PRN ×2 (11:13→21:51)
--- NOTE | 2016-07-23 16:41 | PROGRESS NOTE ---
DATE: 07/23/2016 SUBJECTIVE: Today Mr. Obrien referred to be doing fine. Denies any hematuria and any abdominal discomfort. OBJECTIVE: Vital signs: Blood pressure is 123/55, pulse of 74, respiration is 21, temperature is 97.7 degrees. General: Mr. Obrien is an 85-year-old, male. He was in bed. No distress. HEENT: Mucosa is pink and moist. Anicteric. Acyanotic. Neck: Supple. Chest: Clear. Cardiovascular: Regular rate and rhythm. Abdomen: Soft, nontender. There is a suprapubic catheter in place with bladder irrigation therapy which was still ongoing. LABORATORY DATA: WBC is 3.62, hemoglobin is 7.8, platelet count of 253,000. Chemistry is reviewed, unremarkable. The creatinine is down to 1.5. ASSESSMENT: 1. Dizziness on presentation due to symptomatic anemia. Patient is status post 3 PRBC transfusions. Hemoglobin and hematocrit is stable. There is a little drop in the hemoglobin but I think this is dilutional. We will repeat it for tomorrow morning. 2. Hematuria with bladder clots. Patient has a history of hemorrhagic cystitis , is currently undergoing bladder irrigation therapy. 3. Pseudomonal aeruginosa urinary tract infection. Continue with cefepime. 4. Acute on chronic kidney disease. The patient is getting gentle hydration. Creatinine is improving. I think this is probably due to obstructive uropathy. 5. Iron deficiency anemia. We will continue to replace. Today, I spoke with Dr. Guthrie, who is the urologist on board Mr. Obrien and he recommends for the bladder irrigation therapy to be discontinued and observe and see what is patient's urine output and also make sure he is not having any more hematuria after the irrigation. If everything continues to be stable and fine, we plan to discharge Mr. Obrien tomorrow. cc: MD TIERRA Soria
[2016-07-24 07:25] LABS: MANUAL DIFF NEEDED? NO
[2016-07-24 07:47] VITALS: BP 154/63
[2016-07-24 07:53] LABS: BASO% 1.2 % (0.0-0.8); EOS# 0.24 X1000 (0.0-0.7); EOS% 5.7 % (0.0-10.0); HEMATOCRIT 24.9 % (42.0-52.0); LYMPH% 26.3 % (20.5-51.1); MCH 29.4 PG (27-31); MCHC 32.1 g/dL (33-37); MCV 91.5 FL (81-99); MONO# 0.72 X1000 (0.11-0.59); MONO% 17.2 % (1.7-9.3); NEUT% 49.6 % (42.2-75.2); PLT 260 X1000 (130-400); RBC 2.72 XMIL (4.7-6.1)
[2016-07-24 07:58] LABS: AGAP 12; BUN 16 mg/dL (8-22); CALCIUM 8.9 mg/dL (8.8-10.2); CHLORIDE 103 mmol/L (98-107); COSMO 278; POTASSIUM 4.4 mmol/L (3.5-5.1); SODIUM 139 mmol/L (136-145); TCO2 24 mmol/L (25-35)
[2016-07-24] MEDS: METAMUCIL POWDER PACKET PO SCH (08:12)
[2016-07-24] MEDS: ELMIRON PO SCH (08:13)
[2016-07-24] MEDS: CARAFATE PO SCH (08:13)
[2016-07-24] MEDS: ICAR-C PO SCH (08:13)
[2016-07-24] MEDS: CELEXA PO SCH (08:14)
[2016-07-24] MEDS: PRILOSEC PO SCH (08:14)
[2016-07-24] MEDS: PREMARIN PO SCH (08:15)
[2016-07-24] MEDS: CENTRUM SILVER PO SCH (08:15)
[2016-07-24] MEDS: NS 1,000 ML IV SCH ×2 (08:22→14:00)
[2016-07-24] MEDS: MAXIPIME 1 GM/NS 1 GM/50 ML IVPB IV SCH (14:00)
--- NOTE | 2016-07-24 15:20 | DISCHARGE SUMMARY ---
ADMISSION DATE: 07/19/2016 DISCHARGE DATE: 07/24/2016 CONSULTATIONS: Minh Sylvester MD, with Urology. PERTINENT PROCEDURES: Abdominal ultrasound showed bilateral renal cysts. No hydronephrosis. Urinary bladder is decompressed via Elias catheter that was not well evaluated. Apparent thickening gallbladder wall but no evidence of gallstones. DISCHARGE DIAGNOSES: 1. Dizziness on presentation due to symptomatic anemia. The patient is status post 3 PRBCs. Hemoglobin and hematocrit remain stable. 2. Hematuria with bladder clots, with a history of hemorrhagic cystitis. He did undergo bladder irrigation with Dr. Sylvester. Stable. 3. Pseudomonas aeruginosa urinary tract infection. The patient will continue with p.o. antibiotics. 4. Acute on chronic kidney disease. The patient was gently hydrated. Creatinine has improved secondary to his obstructive uropathy. 5. Iron deficiency anemia. Continue with supplementation. HOSPITAL COURSE: Mr. Obrien is an 85-year-old male who has a past medical history of prostate adenocarcinoma, chronic kidney disease, hypertension, peptic ulcer disease and anemia. He is also a patient of Dr. Guthrie. He has a history of a PSA elevation of 17.5, diagnosed with prostate adenocarcinoma in 2011. He elected to proceed with external beam radiation which was completed in May 2012. He had obstructive voiding even post-treatment and underwent a channel transurethral resection of the prostate in 2013. He had complications related to radiation consistent with hemorrhagic cystitis. He was admitted to this hospital for acute blood loss anemia and clot retention. He underwent a cystoscopy with clot irrigation, fulguration of diffuse bleeding and exchange of a suprapubic tube as well as urethral Elias placement 2 weeks ago. He was discharged home stable where he did well for several days. He redeveloped hematuria with clots. He irrigated himself but continued to have a significant amount of blood in the suprapubic tube and developed dizziness. He presented to the hospital. He was status post 3 units of PRBCs. He was evaluated by Dr. Sylvester for recurrent gross hematuria with clots as well as an acute kidney injury. He was started on bladder irrigation via his suprapubic tube. We monitored his hemoglobin and hematocrit closely. The patient underwent bladder irrigation for several days. It was stopped on 07/23/2016 to see if the patient was able to void. He was able to void. He did not have any hematuria. The patient is appropriate for discharge today. VITAL SIGNS: Temperature is 97.5 degrees, heart rate 67, respirations 19, blood pressure 154/63, O2 is 99% on room air. LABS ON DISCHARGE: Hemoglobin and hematocrit on day of discharge is 8 and 24 with his lowest being on 07/21 at 6 and 18. DISCHARGE DIET: Regular. DISCHARGE MEDICATIONS: 1. Citalopram HBR 10 mg p.o. daily. 2. Premarin 0.625 mg p.o. b.i.d. 3. Metamucil p.o. daily. 4. Icar-C 1 each p.o. b.i.d. 5. Levaquin 250 mg p.o. daily. 6. Centrum Silver 1 each p.o. daily. 7. Protonix 40 mg p.o. daily. 8. Elmiron 100 mg p.o. t.i.d. 9. Carafate 1 g p.o. 4 times a day. FOLLOWUP: 1. Patient is being discharged back home with home health. 2. He will follow up with Dr. Guthrie as he was instructed as well as his primary care physician, Dr. Liu. 3. The patient can return to the ED for any worsening of symptoms. DISCHARGE TIME: 30 minutes. Dictated by BAYRON Espino for Cb Pruitt MD cc: MD Kathi Soria MD MTDD
[2016-07-25] MEDS ORDERED: LEVAQUIN PO SCH (09:00)
== END 2016-07-24 14:23 | disposition home health service (06) ==
LOC: SUPCPDRO → ED 14:16 → 3N 19:55
PROVIDERS: ATTEND Internal Medicine

== ENCOUNTER 2016-08-16 13:06 | Inpatient (IN) ==
--- NOTE | 2016-08-16 13:38 | PROVIDER DOCUMENTATION ---
HPI-Neurological Disorder - General Stated Complaint: general weakness Time Seen by Provider: 08/16/16 13:16 Source: patient Allergies/Adverse Reactions: Patient Allergies Allergy/AdvReac Type Severity Reaction Status Date / Time No Known Allergies Allergy Verified 07/19/16 15:18 Home Medications: Home Medication List Medication Instructions Recorded Confirmed Last Taken Type Inulin [Metamucil] 330.6 gm PO DAILY #1 powder 05/24/16 07/19/16 07/19/16 Rx Iron Carbonyl/Ascorbic Acid 1 each PO BID #60 tablet 05/24/16 07/19/16 07/19/16 Rx [Icar-C] Multivitamins/Minerals [Centrum 1 each PO DAILY #30 tablet 05/24/16 07/19/16 Rx Silver] Pantoprazole Sodium [Protonix] 40 mg PO DAILY #30 tablet. 05/24/16 07/19/16 Rx Citalopram Hydrobromide 10 mg PO DAILY #30 tablet 07/11/16 07/19/16 07/19/16 Rx [Citalopram HBr] Estrogens, Conjugated [Premarin] 0.625 mg PO BID #60 tablet 07/11/16 07/19/16 Rx Pentosan [Elmiron] 100 mg PO 0900,1500,2100 #90 07/11/16 07/19/16 07/19/16 Rx capsule Sucralfate [Carafate] 1 gm PO 4XDAY #120 tablet 07/11/16 07/19/16 07/19/16 Rx Levofloxacin [Levaquin] 250 mg PO DAILY #5 tablet 07/24/16 Unknown Rx - History of Present Illness-Neuro Nature of Presenting Problem: Reports he was at [facility] eating lunch. Afte two bites, he want to bathroom had a BM, on his way back to his table he passed out and fall. Denies major injuries from the fall, but he looks pale. Reports prostate cancer and has a cath. Reports been having bloody urine and received blood transfusion in the past. Severity: reports: moderate Onset/Duration: reports: just prior to arrival Timing: reports: improving, gone now Context: reports: falling Character of Altered Mental Status: reports: other (See above) Any recent trauma/injury?: reports: none Character of Deficits: reports: falling New weakness or altered sensation location:: reports: none Cognitive Baseline: alert, oriented x3 Gait Baseline: walks without assistance Associated Symptoms: reports: fainting, fatigue. denies: short of breath, headache, dizziness, confusion, neck/back pain, fever/chills, vomiting Similar Symptoms Previously?: No Recently seen or treated by another doctor?: No Review of Systems - Adult - REVIEW OF SYSTEMS - ADULT Constitutional: reports: no symptoms reported Eyes: reports: no symptoms reported Ears, Nose, Mouth & Throat: reports: no symptoms reported Cardiovascular: reports: no symptoms reported Respiratory: reports: no symptoms reported Gastrointestinal: reports: no symptoms reported Genitourinary: reports: no symptoms reported Musculoskeletal: reports: no symptoms reported Integumentary: reports: no symptoms reported Neurological: reports: see HPI, syncope Psychiatric: reports: no symptoms reported Endocrine: reports: no symptoms reported Hematologic/Lymphatic: reports: no symptoms reported Allergic/Immunologic: reports: no symptoms reported All Other Systems: Reviewed and Negative Past History - Adult - PAST MEDICAL HISTORY-ADULT Review of Records: reports: Old Records Reviewed, Nursing Assessment Review, Medications Reviewed, Social history reviewed & non-contributory. Major Childhood Illnesses: reports: denies history Cardiovascular: reports: HTN Respiratory: reports: denies history Gastrointestinal: reports: GI bleed, ulcer Obstetrical/Gynecological: reports: denies history Genitourinary: reports: kidney disease, prostate cancer, other (suprapubic catheter) Musculoskeletal: reports: denies history Neurological: reports: denies history Endocrine/Immune: reports: denies history Other Conditions: reports: denies history - PRIOR SURGERIES/PROCEDURES Surgical/Procedure History: reports: reviewed, not pertinent - IMMUNIZATION STATUS Childhood Immunizations: See Nurse Assessment Flu Vaccine: See Nurse Assessment - FAMILY HISTORY Family History: reviewed, not pertinent Physical Exam- Neurological - Physical Exam-Neuro Initial Vital Signs Reviewed: Yes General Appearance: appears well, alert, no apparent distress, thin, other ( Looks pale) Eye Exam: bilateral eye: PERRL, EOMI HENMT: normocephalic/atraumatic, moist mucous membranes Head Injury: no evidence of injury Neck: non-tender, full range of motion, supple, normal inspection Respiratory: chest non-tender, lungs clear, normal breath sounds, no pleuratic chest pain, no respiratory distress, no accessory muscle use Cardiovascular: normal peripheral pulses, regular rate, rhythm, no edema, no gallop, no JVD Abdominal Exam: normal bowel sounds, non tender, soft, no organomegaly, no pulsatile mass, tenderness (Diffused suprapubic tenderness, no guarding and no rebound.). 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 Exam: normal speech Motor/Sensory: no motor deficit, no sensory deficit, no pronator drift Neurologic: no motor/sensory deficits, abnormal gait Integumentary: normal color, normal turgor, warm/dry Psych/Mental Status: normal mood/affect, normal thought content, normal thought process, oriented x 3 Progress - PLAN OF CARE/RESULTS Progress/Plan/Lab Results: Vital Signs - 8 hr 08/16/16 13:33 08/16/16 14:29 Temperature 97.8 F Pulse Rate 86 81 Respiratory Rate 18 16 Blood Pressure 108/53 103/49 O2 Sat by Pulse Oximetry 99 100 08/16/16 13:22 Stool Occult Blood (ALIVIA) - Final Stool Laboratory Results - last 24 hr 08/16/16 08/16/16 08/16/16 13:15 13:15 13:15 WBC 6.79 RBC 1.82 L Hgb 5.5 L* Hct 16.9 L MCV 92.9 MCH 30.2 MCHC 32.5 L RDW Std Deviation 15.1 H Plt Count 243 MPV 8.6 Immature Gran % (Auto) 0.3 Neut % (Auto) 71.9 Lymph % (Auto) 15.9 L [place] % (Auto) 10.6 H Eos % (Auto) 1.0 Baso % (Auto) 0.3 Immature Gran # (Auto) 0.02 Neut # (Auto) 4.88 Lymph # (Auto) 1.08 L [place] # (Auto) 0.72 H Eos # (Auto) 0.07 Baso # (Auto) 0.02 Segmented Neutrophils Not Reportable PT INR PTT (Actin FS) Sodium 131 L Potassium 5.9 H Chloride 95 L Carbon Dioxide 21 L Anion Gap 15 BUN 39 H Creatinine 2.9 H Estimated GFR/1.73 m2 21 BUN/Creatinine Ratio 13 Glucose 133 H Calculated Osmolality 274 Calcium 8.7 L Total Bilirubin 0.18 L AST 13 ALT 10 Alkaline Phosphatase 67 Creatine Kinase 21 L Troponin T Total Protein 5.9 L Albumin 3.1 L Globulin 2.8 Albumin/Globulin Ratio 1.1 Plasma/Serum Ethyl Alc Blood Type Antibody Screen Crossmatch 08/16/16 08/16/16 08/16/16 13:15 13:15 13:15 WBC RBC Hgb Hct MCV MCH MCHC RDW Std Deviation Plt Count MPV Immature Gran % (Auto) Neut % (Auto) Lymph % (Auto) [place] % (Auto) Eos % (Auto) Baso % (Auto) Immature Gran # (Auto) Neut # (Auto) Lymph # (Auto) [place] # (Auto) Eos # (Auto) Baso # (Auto) Segmented Neutrophils PT 10.8 INR 1.03 PTT (Actin FS) 28.2 Sodium Potassium Chloride Carbon Dioxide Anion Gap BUN Creatinine Estimated GFR/1.73 m2 BUN/Creatinine Ratio Glucose Calculated Osmolality Calcium Total Bilirubin AST ALT Alkaline Phosphatase Creatine Kinase Troponin T 0.025 Total Protein Albumin Globulin Albumin/Globulin Ratio Plasma/Serum Ethyl Alc Blood Type O NEGATIVE Antibody Screen NEGATIVE Crossmatch See Detail Orders Category Date Time Status Cardiac Monitoring DIRECTED Care 08/16/16 13:28 Active Finger Stick Blood Sugar (ED) DIRECTED Care 08/16/16 13:28 Active Oxygen Therapy- ED Nursing DIRECTED Care 08/16/16 13:28 Active Saline Loc NOW Care 08/16/16 13:28 Active Transfuse .Give-Transfuse Care 08/16/16 14:39 Active CHEST-PORTABLE [RAD] Stat Exams 08/16/16 13:28 Completed HEAD W/O CONTRAST [CT] Stat Exams 08/16/16 13:29 Completed RENAL STONE SEARCH [CT] Stat Exams 08/16/16 14:21 Ordered ALCOHOL BLOOD Stat Lab 08/16/16 13:15 Completed CBC WITH ELECTRONIC DIFF [HEME] Stat Lab 08/16/16 13:15 Completed CK PROFILE [SP CHEM] Stat Lab 08/16/16 13:15 Completed COMPREHENSIVE METABOLIC PANEL [CHEM] Stat Lab 08/16/16 13:15 Completed LACTATE, PLASMA [CHEM] Stat Lab 08/16/16 13:28 Uncollected LRPC (RED CELLS) [BBK] Stat Lab 08/16/16 13:15 Results LRPC (RED CELLS) [BBK] Stat Lab 08/16/16 14:39 Uncollected OCCULT BLOOD SCREENING [STOOL] Stat Lab 08/16/16 13:22 Completed POTASSIUM [CHEM] Stat Lab 08/16/16 14:25 Uncollected PROTIME WITH INR [COAG] Stat Lab 08/16/16 13:15 Completed PTT [COAG] Stat Lab 08/16/16 13:15 Completed TROPONIN T Stat Lab 08/16/16 13:15 Completed TYPE & SCREEN [BBK] Stat Lab 08/16/16 13:15 Results URINALYSIS W/POSS RFLX CULT-1 [URINALYSIS] Stat Lab 08/16/16 13:28 Uncollected URINE DRUG SCREEN Stat Lab 08/16/16 13:28 Uncollected Pulse Oximetry Stat Oth 08/16/16 13:28 Active EKG [EKG] Stat Ther 08/16/16 13:28 Draft Result Diagrams: 08/16/16 13:15 08/16/16 13:15 - CONSULTS/PCP/HOSPITALIST Notification #1 *Consult/PCP/Hospitalist*: Danica// Ganesh Time Discussed: 14:43 Consult Disposition: Admit Departure - Departure Time of Disposition Decision: 14:42 DIAGNOSIS: Syncope Qualifiers: Encounter type: initial encounter Anemia Qualifiers: Anemia type: unspecified type Qualified Code(s): D64.9 - Anemia, unspecified Disposition: ADMITTED INPATIENT 09 Certified Medical Emergency: Emergent Condition: Stable - Critical Care Note This patient required my direct & personal management of CC.: No
[2016-08-16 13:54] LABS: INR 1.03; PROTIME 10.8 Seconds (9.2-11.7); PTT 28.2 Seconds (22.0-36.0)
[2016-08-16 13:56] LABS: BASO% 0.3 % (0.0-0.8); EOS# 0.07 X1000 (0.0-0.7); HEMATOCRIT 16.9 % (42.0-52.0); HEMOGLOBIN 5.5 g/dL (14.0-18.0); IMM GRAN# 0.02 X1000 (0.0-0.04); IMM GRAN% 0.3 % (0.0-0.5); LYMPH# 1.08 X1000 (1.2-3.4); LYMPH% 15.9 % (20.5-51.1); MCH 30.2 PG (27-31); MCHC 32.5 g/dL (33-37); MCV 92.9 FL (81-99); MONO# 0.72 X1000 (0.11-0.59); MONO% 10.6 % (1.7-9.3); MPV 8.6 FL (7.4-10.4); NEUT% 71.9 % (42.2-75.2); PLT 243 X1000 (130-400); RBC 1.82 XMIL (4.7-6.1)
--- NOTE | 2016-08-16 13:56 | Diag Imaging Result Doc PS360 ---
HEAD W/O CONTRAST - 08/16/2016 INDICATION: AMS TECHNIQUE: A CT dose reduction protocol was used. COMPARISON: 08/01/2013 FINDINGS: No intracranial mass or hemorrhage. Stable mild diffuse cerebral atrophy. The sinuses, mastoids, and middle ears are clear. IMPRESSION: Mild cerebral atrophy. No acute disease. Electronically signed by Ric Anaya 08/16/2016 1:54 PM
[2016-08-16 14:04] LABS: ALBUMIN 3.1 g/dL (3.5-5.0); CALCIUM 8.7 mg/dL (8.8-10.2); POTASSIUM 5.9 mmol/L (3.5-5.1); TOTAL BILIRUBIN 0.18 mg/dL (0.20-1.00); TOTAL PROTEIN 5.9 g/dL (6.3-8.3)
[2016-08-16 14:05] LABS: MANUAL DIFF NEEDED? NO
--- NOTE | 2016-08-16 14:12 | Diag Imaging Result Doc PS360 ---
CHEST-PORTABLE - 08/16/2016 INDICATION: AMS TECHNIQUE: COMPARISON: 05/21/2016 FINDINGS: There are stable calcified granulomas in the kendell bilaterally. No focal infiltrates, pneumothorax, or pleural effusion. Heart size is top normal. IMPRESSION: No acute disease or change from prior. Electronically signed by Ric Anaya 08/16/2016 2:10 PM
--- NOTE | 2016-08-16 14:19 | EKG Report ---
Test Performed on : 08/16/2016 2:05:07 PM Test Reason : AMS Blood Pressure : / mmHG Vent. Rate : 071 BPM Atrial Rate : 071 BPM P-R Int : 182 ms QRS Dur : 160 ms QT Int : 448 ms P-R-T Axes : 000 -16 096 degrees QTc Int : 486 ms Normal sinus rhythm. Left bundle branch block Abnormal ECG When compared with ECG of 20-JUL-2016 03:24, premature ventricular complexes. are no longer present Unconfirmed Result
[2016-08-16 14:51] LABS: URINE MICRO REVIEW NEEDED? NO; URINE SOURCE CLEAN CATCH
[2016-08-16 14:59] LABS: BILIRUBIN URINE SMALL (NEGATIVE); BLOOD URINE LARGE (NEGATIVE); COLOR RED; GLUCOSE URINE TRACE mg/dL (NEGATIVE); LEUKOCYTES URINE TRACE (NEGATIVE); NITRITE URINE NEGATIVE (NEGATIVE); PH URINE 8.5; PROTEIN URINE 600 mg/dL (NEGATIVE); SP GRAVITY URINE 1.029; TURBIDITY URINE TURBID (CLEAR); UROBILINOGEN URINE NORMAL (NORMAL)
[2016-08-16 15:01] LABS: UR EPITHELIAL CELLS <10 /HPF (<10); URINE BACTERIA 2+ /HPF; URINE CULTURE NEEDED? YES; URINE RBC <10 /HPF (<10); URINE WBC <10 /HPF (<10)
[2016-08-16 15:09] LABS: UR AMPHETAMINES QUAL NONE DETECTED (NONE DETECT); UR BARBITUATES QUAL NONE DETECTED (NONE DETECT); UR BENZODIAZEPIN QUAL NONE DETECTED (NONE DETECT); UR CANNABINOIDS QUAL NONE DETECTED (NONE DETECT); UR COCAINE QUAL NONE DETECTED (NONE DETECT); UR METHADONE QUAL NONE DETECTED (NONE DETECT); UR OPIATES QUAL NONE DETECTED (NONE DETECT); UR OXYCODONE QUAL NONE DETECTED (NONE DETECT); UR PCP QUAL NONE DETECTED (NONE DETECT)
--- NOTE | 2016-08-16 15:15 | Diag Imaging Result Doc PS360 ---
RENAL STONE SEARCH - 08/16/2016 INDICATION: Abd pain TECHNIQUE: A CT dose reduction protocol was used. COMPARISON: 07/03/2016 FINDINGS: Hypodensity of the blood in the heart indicates there is significant anemia. There has been significant increase in the size of the mass urinary bladder. This was not present on 05/21/2016, so it was felt to represent a hematoma on 07/03/2016. However this has steadily grown and now measures about 7.5 x 7.7 cm in AP and lateral dimensions. There is a supra pubic catheter in stable position. The catheter tip is actually embedded in the hyperdense masslike area. This also fills the distal most ureters bilaterally. No significant adenopathy. No hydronephrosis. No radiodense renal stones. No bowel obstruction or inflammation. Stable surgical clips in the region of the prostate. Rectum is normal. The lung bases are grossly clear and the heart size is normal. There are moderate degenerative changes of the spine. No acute or suspicious bony lesion. IMPRESSION: 1. Extensive enlargement of the mass or hematoma in the urinary bladder. Further evaluation recommended. This may be filling the distal ureters as well, although there is no hydronephrosis at this point. 2. Small gallstone in the gallbladder. 3. Anemia. Electronically signed by Ric Anaya 08/16/2016 3:13 PM
[2016-08-16] MEDS ORDERED: NS 2,000 ML ONE (15:18)
[2016-08-16] MEDS ORDERED: HUMULIN R IV ONE (15:28)
[2016-08-16] MEDS ORDERED: D50W SYRINGE IV ONE (15:28)
--- NOTE | 2016-08-16 17:46 | HISTORY AND PHYSICAL ---
PRIMARY CARE PHYSICIAN: Dr. Liu. PRIMARY UROLOGIST: Dr. Bruce Guthrie. CHIEF COMPLAINT: Passed out and bleeding from the suprapubic catheter. HISTORY OF PRESENT ILLNESS: Mr. Ildefonso Obrien is an 85-year-old male. He is currently in no acute distress but has a history of prostate cancer with radiation treatment which caused a very thin irritated bladder, iron-deficiency anemia, and duodenal ulcer disease , who she has been followed by Dr. Guthrie. He also has a suprapubic catheter. This past year he had a recent admission for hematoma in the bladder. He now is on week 3 for hyperbaric treatments 5 days a week for an hour and a half at a time to clear up the inside of his bladder. He states that for the last 5 days he has been noticing bleeding from the suprapubic catheter. He takes a syringe and withdraws the blood clots out and flushes it. His dizziness has lasted the last 2 days. He had and his were out to dinner, he had left to the bathroom and did pass out. He said everything went black. He was helped back to his table and EMS was called. He did not fall and hit his head. Upon admission it was found that he had a hemoglobin and hematocrit of 5.5 and 16.9. He also had a potassium level of 5.9 on admission and a repeat was 6.0, so he received insulin and D50 for this. He has a history of CKD but he is very dehydrated and his creatinine has jumped up from 1.4 to 2.9. Currently vital signs are stable. 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 We will admit, give blood transfusion, and consult Dr. Guthrie for further workup. PAST MEDICAL HISTORY: CKD stage 3. Recent colitis. Hypertension. Prostate cancer status post radiation treatment. Peptic ulcer disease with duodenal ulcer in the past. Iron deficiency anemia. Large bladder hematoma. Stable cystitis. SURGICAL HISTORY: Recently receiving hyperbaric treatments 5 days a week for an hour and a half at a time, this is week 3, for his bladder. [facility] tooth extraction. Prostate biopsy. Vocal cord operation. Placement of suprapubic catheter. Strictures in the urethra and bladder that have been excised in the past. Most recently, cystoscopic exam, clot irrigation and fulgurating of the diffuse bleeding area with exchange of suprapubic catheter. SOCIAL HISTORY: Denies tobacco, alcohol or illicit drug use. He uses a walker or cane to ambulate. FAMILY HISTORY: Noncontributory. REVIEW OF SYSTEMS: Fourteen point review of systems were complete and all were negative except for those mentioned in above HPI. ALLERGIES: No known drug allergies. HOME MEDICATIONS: Citalopram 10 mg p.o. daily. Premarin 0.625 mg p.o. twice daily. Metamucil 0.6 g p.o. daily. Icar-C 1 tab p.o. twice daily. Centrum Silver 1 tab p.o. daily. Protonix 40 mg p.o. daily. Elmiron 100 mg p.o. 3 times daily. Carafate 1 g p.o. 4 times a day. PHYSICAL EXAMINATION: VITAL SIGNS: Temperature is 97.18 degrees, heart rate 73, respiratory rate 16, blood pressure 122/66, O2 saturation 100% on room air. 5 feet 8 inches tall, 158 pounds. BMI of 24. GENERAL: Mr. Ildefonso Obrien is an 85-year-old male, he is in no acute distress. He is able answer all questions appropriately. HEENT: Atraumatic, normocephalic. Pupils equal, round, reactive to light. Extraocular intact. Conjunctivae is pale. Mucous membranes are dry. NECK: No JVD or carotid bruits noted. CARDIOVASCULAR: S1, S2. Regular rate and rhythm. No rubs, gallops, murmurs. PULMONARY: Clear to auscultation. Bilateral breath sounds. No accessory muscle use or work of breathing noted. GI: Soft, nontender, nondistended. Positive bowel sounds x4. : Suprapubic catheter with drainage, bloody drainage around it. Urine is dark, hematuria. EXTREMITIES: No edema noted. +2 dorsalis and radial pulses. NEUROLOGIC: Alert and oriented x4. Moves all extremities equally. LABORATORY DATA: White blood cells 6000, hemoglobin 5.5, hematocrit 16.9, platelet count 243,000, INR 1.03. Sodium 131, potassium 6.0, BUN 39, creatinine is 2.9, glucose 133, bilirubin 0.18, AST 13, ALT 10, CK 21, troponin 0.025. Albumin is 3.1. Urinalysis; 600 protein, large blood, small bilirubin, trace leukocytes, 2+ bacteria. Urine drug screen negative. Alcohol level is negative. IMAGING: Renal CT: Extensive enlargement of the mass or hematoma in the urinary bladder. Further evaluation recommended. This may be filling the distal ureters is well , although there is no hydronephrosis at this point, small gallstone in the gallbladder, and anemia. Head CT: Mild cerebral atrophy. No acute disease. EKG: Normal sinus rhythm, rate 71, QTc 486. Chest x-ray: No acute findings. ASSESSMENT AND PLAN: 1. Acute blood loss anemia secondary to large bladder hematoma that keeps bleeding Dr. Guthrie has been following for this. He has been receiving hyperbaric treatments 5 days a week. This is week 3. We will transfuse with 3 units packed red blood cells. His hemoglobin is 5.5, and he is symptomatic with dizziness and near syncope. 2. Bladder hematoma. Please see #1. 3. Stable cystitis. 4. Acute kidney injury on chronic kidney disease stage 3. We will do IV fluid hydration, do some urine studies. 5. Peptic ulcer disease. Continue with proton pump inhibitor. Patient seen and examined. Agree with BAYRON note. It reflects my assessment and plan. Dictated by BAYRON Blue for Javi Thurston MD cc: BAYRON Blue MD Bhavna Gowda, MD MTDD
[2016-08-16] MEDS ORDERED: ZOFRAN IV PRN (18:11)
[2016-08-16] MEDS ORDERED: TYLENOL PO PRN (18:11)
[2016-08-16] MEDS ORDERED: NS 1,000 ML IV SCH (18:11)
[2016-08-16] MEDS ORDERED: NORCO-7.5 PO PRN (18:11)
--- NOTE | 2016-08-16 21:25 | CONSULTATION ---
DATE OF CONSULTATION: 08/16/2016 CONSULTING PHYSICIAN: Javi Thurston MD, Hospitalist Service. REASON FOR CONSULTATION: Gross hematuria. HISTORY OF PRESENT ILLNESS: This 85-year-old male is well known to the Urology service. In summary, he is a patient of Dr. Guthrie with a history of prostate cancer diagnosed in 2011, who underwent external beam radiation in 2012. He has had obstructive voiding and underwent channel transurethral resection of the prostate. Since then he has had problems with hemorrhagic cystitis attributed to his radiation. He was most recently hospitalized in June and July 2016 at which point I saw him in consultation and introduced a 3-way catheter through his suprapubic tube with bladder irrigation. He avoided surgery at that time. He was subsequently seen by Dr. Guthrie and was recommended to undergo hyperbaric oxygen therapy. He reports he is in his third week of treatment. He reports the treatment went well although he has had intermittent hematuria. The hematuria worsened and he reports being out with a friend at lunch when he passed out. He was brought to the ER and was found to have a hematocrit of 15. He is currently admitted and scheduled to undergo blood. He reports feeling dizzy and lightheaded. Again he reports intermittent hematuria with clots. PAST MEDICAL HISTORY: 1. Prostate adenocarcinoma. 2. Chronic kidney disease. 3. Hypertension. 4. Peptic ulcer disease. 5. Anemia. PAST SURGICAL HISTORY: 1. [employer] tooth extraction. 2. Vocal cord surgery. 3. Channel TURP. 4. Urethral stricture dilation. 5. Suprapubic tube placement. 6. Clot irrigations with fulguration of bleeding. ALLERGIES: No known drug allergies. MEDICATIONS: Elmiron, Protonix, Carafate, multivitamin, Metamucil, Celexa. SOCIAL HISTORY: Denies tobacco, alcohol or drug use. FAMILY HISTORY: Negative for malignancies. REVIEW OF SYSTEMS: Reviewed 12 systems and negative except as noted in HPI. PHYSICAL EXAMINATION: Vital Signs: T 98.2 degrees, P 84, BP 115/47. General: No acute distress. HEENT: Normocephalic, atraumatic. Cardiovascular: Regular rhythm. Pulmonary: Bilateral breath sounds. Abdomen: Nontender, nondistended. Genitourinary: Suprapubic tube in place, draining dark oily appearing urine with obvious clots, normal meatus, redundant foreskin, testes are atrophic bilaterally, there is blood in the meatus. Lymphatic: No groin lymphadenopathy. Dermatologic: No obvious skin rashes. Neurologic: Alert and oriented x3. Psychiatric: Appropriate mood and affect. PERTINENT LABORATORY DATA: White blood cell count 7000, hemoglobin 5.5, hematocrit 16.9, platelet count of 243,000, creatinine 2.9. PERTINENT IMAGES: CT abdomen and pelvis for renal stone search on 08/16/2016 revealing enlarged urinary bladder with extensive hematoma, no evidence of hydronephrosis. 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 I have discussed with the patient his difficult situation yet again. In a sterile fashion I placed a 24-[place] 3-way Elias catheter via his suprapubic tract and then irrigated him multiple times with sterile saline in order to remove the majority the clots. I spent over 30 minutes irrigating them. Eventually his urine was very light pink without obvious clots. He was connected by me to continuous irrigation and I instructed Nursing Staff to make sure the irrigation does not run out. I have also explained to the patient that with hemorrhagic cystitis taking him to the operating room is not going to provide immediate relief and hence it is better off if we avoid going to the operating room unless he continues to have clots and drop of his hematocrit. PLAN: 1. I agree with resuscitation and blood. 2. Continue bladder irrigation for now via the large suprapubic tube. 3. We will follow. Thank you for the consultation. cc: Minh Sylvester MD MTDD
[2016-08-16 22:48] LABS: HEMATOCRIT 23.9 % (42.0-52.0); HEMOGLOBIN 7.9 g/dL (14.0-18.0)
[2016-08-17 06:02] LABS: MANUAL DIFF NEEDED? NO
[2016-08-17 06:25] LABS: INR 1.03; PROTIME 10.8 Seconds (9.2-11.7); PTT 27.3 Seconds (22.0-36.0)
[2016-08-17 06:27] LABS: ALBUMIN 2.9 g/dL (3.5-5.0); CALCIUM 8.4 mg/dL (8.8-10.2); MAGNESIUM 1.8 mg/dL (1.5-2.7); POTASSIUM 5.9 mmol/L (3.5-5.1); TOTAL BILIRUBIN 0.25 mg/dL (0.20-1.00); TOTAL PROTEIN 5.3 g/dL (6.3-8.3)
[2016-08-17 06:53] LABS: BASO% 0.4 % (0.0-0.8); EOS% 4.4 % (0.0-10.0); HEMATOCRIT 24.2 % (42.0-52.0); HEMOGLOBIN 7.9 g/dL (14.0-18.0); LYMPH# 1.39 X1000 (1.2-3.4); LYMPH% 30.3 % (20.5-51.1); MCHC 32.6 g/dL (33-37); MONO# 0.81 X1000 (0.11-0.59); MONO% 17.7 % (1.7-9.3); MPV 8.8 FL (7.4-10.4); NEUT% 47.2 % (42.2-75.2); PLT 198 X1000 (130-400); RBC 2.72 XMIL (4.7-6.1)
[2016-08-17] MEDS ORDERED: KAYEXALATE PO ONE (11:29)
[2016-08-17] MEDS: CARAFATE PO SCH ×3 (12:33→20:32)
--- NOTE | 2016-08-17 13:16 | PROGRESS NOTE ---
DATE: 08/17/2016 SUBJECTIVE: Patient reports feeling fine. No vomiting blood or blood in the stools. Reports bloody urine. OBJECTIVE: Vital Signs: Temperature 98.4 degrees, heart rate 65, respiratory rate 18, blood pressure 120/70, O2 saturation 99% on room air. General Examination: This is an 85-year-old male, lying in bed, in no acute distress. HEENT: Head is normocephalic, atraumatic. Anicteric sclerae and pale conjunctivae. Mucous membranes moist. Neck: Supple. No JVD noted. No carotid bruits. No lymphadenopathy. No thyromegaly. Cardiovascular: S1, S2 heard. No murmurs, gallops, or rubs. Regular rate and rhythm. Respiratory: Clear bilaterally to auscultation. No work of breathing or using accessory muscles. Abdomen: Soft , nontender to palpation. Bowel sounds present. No organomegaly. Suprapubic catheter with drainage Extremities: No clubbing, cyanosis, or edema. Peripheral pulses present in both legs. Neurological: Patient alert and oriented x3, moves all 4 extremities. Cranial nerves 2-12 grossly normal. LABORATORY DATA: White cell count 4.58, hemoglobin 7.9, hematocrit 24.2, platelets 198,000. Sodium 134, potassium 5.9, chloride 102, bicarb 23, BUN 35, creatinine 2.4. ASSESSMENT AND PLAN: 1. Acute blood loss anemia secondary to large bladder hematoma. Dr. Sylvester from Urology has been consulted and they prefer to continue with bladder irrigation. He is not planning to do any cystoscopy at least at this time. Hemoglobin is much better today at 7.9 , after 3 units of blood. We will continue checking CBC daily. 2. Bladder hematoma, as mentioned above. 3. Stable interstitial cystitis. We will continue with home medications. 4. Acute on chronic kidney disease. Stable. We will continue with IV hydration. 5. Peptic ulcer disease. We will continue with Protonix. cc: Javi Thurston MD [facility]
[2016-08-17] MEDS: ELMIRON PO SCH ×2 (15:03→20:32)
[2016-08-17] MEDS: ICAR-C PO SCH (20:32)
[2016-08-18] MEDS: PROTONIX PO SCH (06:25)
[2016-08-18] MEDS: ELMIRON PO SCH ×3 (08:22→21:01)
[2016-08-18] MEDS: CARAFATE PO SCH ×4 (08:22→21:01)
[2016-08-18] MEDS: ICAR-C PO SCH ×2 (08:22→21:01)
[2016-08-18] MEDS ORDERED: METAMUCIL POWDER PACKET PO SCH (09:00)
[2016-08-18] MEDS ORDERED: CELEXA PO SCH (09:00)
[2016-08-18 12:14] LABS: MANUAL DIFF NEEDED? NO
[2016-08-18 12:19] LABS: BASO% 0.4 % (0.0-0.8); EOS# 0.16 X1000 (0.0-0.7); EOS% 2.9 % (0.0-10.0); HEMATOCRIT 25.9 % (42.0-52.0); HEMOGLOBIN 8.5 g/dL (14.0-18.0); LYMPH# 1.14 X1000 (1.2-3.4); LYMPH% 20.5 % (20.5-51.1); MCH 29.5 PG (27-31); MCHC 32.8 g/dL (33-37); MCV 89.9 FL (81-99); MONO# 0.74 X1000 (0.11-0.59); MONO% 13.3 % (1.7-9.3); MPV 8.6 FL (7.4-10.4); NEUT% 62.9 % (42.2-75.2); PLT 208 X1000 (130-400); RBC 2.88 XMIL (4.7-6.1)
[2016-08-18] MEDS ORDERED: ROCEPHIN 1 GM/NS 1 GM/50 ML IVPB IV SCH (13:15)
--- NOTE | 2016-08-18 15:56 | PROGRESS NOTE ---
DATE: 08/18/2016 SUBJECTIVE: Patient is feeling fine. Denies any shortness of breath or any lightheadedness. OBJECTIVE: Vitals: Temperature 98 degrees, heart rate 87, respiratory rate 17, blood pressure 113/67. O2 saturation 100% on room air. General: This is an 85-year-old male, lying in bed, in no acute distress. HEENT: Head is normocephalic, atraumatic. Anicteric sclerae and pale conjunctivae. Mucous membranes moist. Neck: Supple. No JVD noted. No carotid bruits. No lymphadenopathy. No thyromegaly. Cardiovascular: S1, S2 heard. No murmurs, gallops, or rubs. Regular rate and rhythm. Respiratory: Clear bilaterally to auscultation. No work of breathing or using accessory muscles. Abdomen: Suprapubic catheter noted with continuous irrigation through the bladder. Neurological: Patient moves 4 extremities. Alert and oriented x3. LABORATORY DATA: Hemoglobin is 8.5. ASSESSMENT AND PLAN: 1. Acute blood loss anemia secondary to large bladder hematoma. By now the continuous irrigation shows clear urine coming from the bladder. Dr. Sylvester from Urology has been consulted. Patient expressed his desire to be discharged today. We have talked with Dr. Sylvester and he recommends that in case he wants to go, we need to stop the irrigation and after 6 hours we need to check if he becoming pure blood or not. If not, they are okay to let the patient go. 2. Urinary tract infection. Patient is on ceftriaxone. 3. Bladder hematoma, stable. 4. Stable interstitial cystitis. We will continue home medications. 5. Acute on chronic kidney disease. Stable. cc: Javi Thurston MD
[2016-08-19] MEDS: PROTONIX PO SCH (06:13)
[2016-08-19 06:29] LABS: MANUAL DIFF NEEDED? NO
[2016-08-19 06:40] LABS: BASO% 0.3 % (0.0-0.8); EOS# 0.28 X1000 (0.0-0.7); EOS% 4.5 % (0.0-10.0); HEMATOCRIT 25.2 % (42.0-52.0); HEMOGLOBIN 8.2 g/dL (14.0-18.0); IMM GRAN# 0.02 X1000 (0.0-0.04); IMM GRAN% 0.3 % (0.0-0.5); LYMPH# 1.34 X1000 (1.2-3.4); LYMPH% 21.6 % (20.5-51.1); MCH 29.4 PG (27-31); MCHC 32.5 g/dL (33-37); MCV 90.3 FL (81-99); MONO# 0.89 X1000 (0.11-0.59); MONO% 14.4 % (1.7-9.3); MPV 8.7 FL (7.4-10.4); NEUT% 58.9 % (42.2-75.2); PLT 218 X1000 (130-400); RBC 2.79 XMIL (4.7-6.1)
[2016-08-19 06:51] LABS: CALCIUM 8.6 mg/dL (8.8-10.2); POTASSIUM 4.3 mmol/L (3.5-5.1)
[2016-08-19 07:31] VITALS: BP 135/69
--- NOTE | 2016-08-19 07:39 | EKG Report ---
Test Performed on : 08/17/2016 06:24:48 AM Test Reason : chest pain Blood Pressure : / mmHG Vent. Rate : 059 BPM Atrial Rate : 059 BPM P-R Int : 166 ms QRS Dur : 156 ms QT Int : 478 ms P-R-T Axes : -20 000 089 degrees QTc Int : 473 ms Sinus bradycardia. Left bundle branch block Abnormal ECG When compared with ECG of 16-AUG-2016 14:05, T wave inversion less evident in Lateral leads Confirmed by Yair Schmidt MD ([id number]) on 08/20/2016 8:18:14 AM
--- NOTE | 2016-08-30 17:48 | DISCHARGE SUMMARY ---
ADMISSION DATE: 08/16/2016 DISCHARGE DATE: 08/19/2016 DISCHARGE DIAGNOSES: 1. Acute blood loss anemia secondary to large bladder hematoma improved. 2. Urinary tract infection improved. 3. Stable interstitial cystitis. 4. Acute on chronic kidney disease. CONSULTATIONS: Dr. Layton from Urology. PROCEDURES: Renal CT done on admission showed extensive enlargement of the mass or hematoma in the urinary bladder. Small gallstones in the gallbladder. HOSPITAL COURSE: This is an 85-year-old male, very well known to our service who has history of prostate cancer with radiation treatment which has caused very thin irritated bladder, iron deficiency anemia and duodenal ulcer disease. On this past year, he had recent admissions for hematoma in the bladder. He is now on this week #3 for hyperbaric treatment 5 days a week. The patient presented to the emergency department because when he was going to the bathroom he did pass out. He did not fall this time and hit his head. Upon ER evaluation, he was found to have a hemoglobin of 5.5. He was admitted to the hospital. He was transfused 3 units of blood. Urology was consulted and he was started on continuous bladder irrigation. The day before discharge we checked with Urology, because this patient wanted to go home on . So we talked and if patient is at least 6-8 hours without continuous bladder irrigation and no bleeding noted, the patient can go. So we did that and there was no signs of bleeding. So, patient was discharged on August 19 in stable condition. He was supposed to see his urologist in the week. At the time of discharge, he was not complaining of any pain. No burning on urination or difficulty when here. DISCHARGE PHYSICAL EXAMINATION: Vital Signs: Temperature 98 degrees, heart rate 83, respiratory rate 20, blood pressure 135/69. O2 saturation 97% on room air. General: This is a 89-year-old, chronically ill-looking, male, lying in bed, in no acute distress. HEENT: Head is normocephalic, atraumatic. Anicteric sclerae and pale conjunctivae. Mucous membranes moist. Neck: Supple. No JVD noted. No carotid bruits. No lymphadenopathy. No thyromegaly. Cardiovascular: S1, S2 heard. No murmurs, gallops, or rubs. Regular rate and rhythm. Respiratory: Clear bilaterally to auscultation. No work of breathing or using accessory muscles. Abdomen: Soft, nontender to palpation. Suprapubic catheter with drainage with no bloody drainage. Urine is clear. Extremities: No edema noted. Peripheral pulses present in both legs. Neurologic: Patient alert and oriented x3. Able to move 4 extremities. Cranial nerves 2- 12 grossly normal. DISCHARGE DISPOSITION: Home with self-care. FOLLOW UP: With Dr. Guthrie within a week. DISCHARGE TIME: 32 minutes. LIST OF MEDICATIONS: 1. Omnicef 300 mg 1 tablet p.o. b.i.d. for 1 week. 2. Sucralfate 1 g p.o. 4 times per day. 3. Citalopram 10 mg 1 tablet p.o. daily. 4. Elmiron 100 mg 1 tablet p.o. 3 times per day. 5. Icar-C 1 tablet p.o. b.i.d. 6. Centrum 1 tablet p.o. daily. 7. Metamucil 1 tablet p.o. daily. 8. Pantoprazole 40 mg 1 tablet p.o. daily. cc: Javi Thurston MD
== END 2016-08-19 08:58 | disposition home or self-care (01) ==
LOC: ED 13:06 → 3N 16:59 → SUATTDRO 16:59
PROVIDERS: ATTEND Internal Medicine

== ENCOUNTER 2016-09-02 09:53 | Inpatient (IN) ==
[2016-09-02] MEDS ORDERED: NS 1,000 ML IV ONE (10:23)
[2016-09-02 10:36] LABS: URINE SOURCE CLEAN CATCH
[2016-09-02 10:43] LABS: MANUAL DIFF NEEDED? NO
[2016-09-02 10:48] LABS: BASO% 0.5 % (0.0-0.8); EOS# 0.21 X1000 (0.0-0.7); EOS% 5.7 % (0.0-10.0); HEMATOCRIT 19.9 % (42.0-52.0); HEMOGLOBIN 6.6 g/dL (14.0-18.0); LYMPH# 0.96 X1000 (1.2-3.4); MCH 30.1 PG (27-31); MCHC 33.2 g/dL (33-37); MCV 90.9 FL (81-99); MONO% 13.6 % (1.7-9.3); MPV 8.7 FL (7.4-10.4); NEUT% 54.2 % (42.2-75.2); PLT 279 X1000 (130-400); RBC 2.19 XMIL (4.7-6.1)
[2016-09-02 11:11] LABS: ALBUMIN 3.4 g/dL (3.5-5.0); CALCIUM 8.7 mg/dL (8.8-10.2); POTASSIUM 4.6 mmol/L (3.5-5.1); TOTAL BILIRUBIN 0.22 mg/dL (0.20-1.00)
[2016-09-02 11:26] LABS: BILIRUBIN URINE MODERATE (NEGATIVE); BLOOD URINE LARGE (NEGATIVE); CLARITY TURBID (CLEAR); COLOR RED; GLUCOSE URINE NEGATIVE (NEGATIVE); LEUKOCYTES URINE LARGE (NEGATIVE); NITRITE URINE POSITIVE (NEGATIVE); PROTEIN URINE >=300 mg/dL (NEGATIVE)
--- NOTE | 2016-09-02 11:46 | PROVIDER DOCUMENTATION ---
This chart was entered by Renan Le Scribe, acting as scribe for Amos Pham MD. HPI-Male Problem - General Chief Complaint: Male Stated Complaint: BLOOD IN URINE Time Seen by Provider: 09/02/16 10:09 Source: patient, family Allergies/Adverse Reactions: Patient Allergies Allergy/AdvReac Type Severity Reaction Status Date / Time No Known Allergies Allergy Verified 09/02/16 10:36 Home Medications: Home Medication List Medication Instructions Recorded Confirmed Last Taken Type Inulin [Metamucil] 330.6 gm PO DAILY #1 powder 05/24/16 09/02/16 09/02/16 Rx Iron Carbonyl/Ascorbic Acid 1 each PO BID #60 tablet 05/24/16 09/02/16 09/02/16 Rx [Icar-C] Multivitamins/Minerals [Centrum 1 each PO DAILY #30 tablet 05/24/16 09/02/1603/09 Rx Silver] Pantoprazole Sodium [Protonix] 40 mg PO DAILY #30 tablet. 05/24/16 09/02/16 Rx Citalopram Hydrobromide 10 mg PO DAILY #30 tablet 07/11/16 09/02/16 09/02/16 Rx [Citalopram HBr] Estrogens, Conjugated [Premarin] 0.625 mg PO BID #60 tablet 07/11/16 09/02/16 Rx Pentosan [Elmiron] 100 mg PO 0900,1500,2100 #90 07/11/16 09/02/16 09/02/16 Rx capsule Sucralfate [Carafate] 1 gm PO 4XDAY #120 tablet 07/11/16 09/02/16 09/02/16 Rx - History of Present Illness-Male Nature of Presenting Problem: 85 yo M presents to the ER with complaint of blood in his urine x 1 week. PT states he has been here 4 times this month for similar problems. Pt had prostate cancer 30 years ago and now has a catheter. States he occasionally bleeds into the catheter. PT denies any pain. Location of Complaint: reports: suprapubic Radiation: reports: none Quality of Pain: reports: none Severity in ED: reports: mild Onset/Duration: reports: 1 week ago Timing: reports: still present Urinary Symptoms: reports: hematuria Similar Symptoms Previously?: Yes Review of Systems - Adult - REVIEW OF SYSTEMS - ADULT Constitutional: denies: chills, fever Cardiovascular: denies: chest pain, palpitations Respiratory: denies: cough, shortness of breath Genitourinary: reports: see HPI, hematuria Musculoskeletal: denies: back pain, neck pain All Other Systems: Reviewed and Negative Past History - Adult - PAST MEDICAL HISTORY-ADULT Review of Records: reports: Old Records Reviewed, Nursing Assessment Review, Medications Reviewed, Social history reviewed & non-contributory. Major Childhood Illnesses: reports: denies history Cardiovascular: reports: HTN Respiratory: reports: denies history Gastrointestinal: reports: GI bleed, ulcer Obstetrical/Gynecological: reports: denies history Genitourinary: reports: kidney disease, prostate cancer, other (suprapubic catheter) Musculoskeletal: reports: denies history Neurological: reports: denies history Endocrine/Immune: reports: denies history Other Conditions: reports: denies history - PRIOR SURGERIES/PROCEDURES Surgical/Procedure History: reports: reviewed, not pertinent - IMMUNIZATION STATUS Childhood Immunizations: See Nurse Assessment Flu Vaccine: See Nurse Assessment - FAMILY HISTORY Family History: reviewed, not pertinent Physical Exam-General - PHYSICAL EXAM-ADULT Initial Vital Signs Reviewed: Yes - CONSTITUTIONAL General Appearance: appears well, alert, no apparent distress - RESPIRATORY Respiratory: chest non-tender, lungs clear, normal breath sounds - CARDIOVASCULAR Cardiovascular: normal peripheral pulses, tachycardia - GASTROINTESTINAL (ABDOMEN) Abdominal Exam: normal bowel sounds, non tender, soft - MUSCULOSKELETAL Extremity: normal range of motion, non-tender, normal gait - SKIN Integumentary: normal color, normal turgor Progress - PLAN OF CARE/RESULTS Progress/Plan/Lab Results: Vital Signs - 8 hr 09/02/16 09:59 Temperature 97.9 F Pulse Rate 93 H Respiratory Rate 18 Blood Pressure 132/55 O2 Sat by Pulse Oximetry 98 Laboratory Results - last 24 hr 09/02/16 09/02/16 09/02/16 10:13 10:13 10:13 WBC 3.69 L RBC 2.19 L Hgb 6.6 L Hct 19.9 L MCV 90.9 MCH 30.1 MCHC 33.2 RDW Std Deviation 14.9 H Plt Count 279 MPV 8.7 Immature Gran % (Auto) 0.0 Neut % (Auto) 54.2 Lymph % (Auto) 26.0 [place] % (Auto) 13.6 H Eos % (Auto) 5.7 Baso % (Auto) 0.5 Immature Gran # (Auto) 0.00 Neut # (Auto) 2.00 Lymph # (Auto) 0.96 L [place] # (Auto) 0.50 Eos # (Auto) 0.21 Baso # (Auto) 0.02 Sodium 131 L Potassium 4.6 Chloride 97 L Carbon Dioxide 24 L Anion Gap 10 BUN 27 H Creatinine 2.3 H Estimated GFR/1.73 m2 27 BUN/Creatinine Ratio 12 Glucose 108 H Calculated Osmolality 268 Calcium 8.7 L Total Bilirubin 0.22 AST 19 ALT 13 Alkaline Phosphatase 83 Troponin T 0.020 Total Protein 6.0 L Albumin 3.4 L Globulin 2.6 Albumin/Globulin Ratio 1.3 Urine Source Urine Color Urine Clarity Urine pH Ur Specific [place] Urine Protein Urine Ketones Urine Blood Urine Nitrite Urine Bilirubin Urine Urobilinogen Urine WBC Urine Glucose Blood Type Antibody Screen 09/02/16 09/02/16 10:13 10:24 WBC RBC Hgb Hct MCV MCH MCHC RDW Std Deviation Plt Count MPV Immature Gran % (Auto) Neut % (Auto) Lymph % (Auto) [place] % (Auto) Eos % (Auto) Baso % (Auto) Immature Gran # (Auto) Neut # (Auto) Lymph # (Auto) [place] # (Auto) Eos # (Auto) Baso # (Auto) Sodium Potassium Chloride Carbon Dioxide Anion Gap BUN Creatinine Estimated GFR/1.73 m2 BUN/Creatinine Ratio Glucose Calculated Osmolality Calcium Total Bilirubin AST ALT Alkaline Phosphatase Troponin T Total Protein Albumin Globulin Albumin/Globulin Ratio Urine Source CLEAN CATCH Urine Color RED Urine Clarity TURBID A Urine pH 7.0 Ur Specific [place] 1.010 Urine Protein >=300 A Urine Ketones 15 A Urine Blood LARGE A Urine Nitrite POSITIVE A Urine Bilirubin MODERATE A Urine Urobilinogen 2.0 H Urine WBC LARGE A Urine Glucose NEGATIVE Blood Type O NEGATIVE Antibody Screen NEGATIVE Orders Category Date Time Status Transfuse .Give-Transfuse Care 09/02/16 11:35 Active CBC WITH ELECTRONIC DIFF [HEME] Stat Lab 09/02/16 10:13 Completed COMPREHENSIVE METABOLIC PANEL [CHEM] Stat Lab 09/02/16 10:13 Completed PRBC [LRPC (RED CELLS)] [BBK] Stat Lab 09/02/16 11:35 Uncollected TROPONIN T Stat Lab 09/02/16 10:13 Completed TYPE & SCREEN [BBK] Stat Lab 09/02/16 10:13 Completed 0.9% Sodium Chloride Inj [Ns] 1,000 ml Med 09/02/16 10:23 Discontinued IV 999 mls/hr EKG [EKG] Stat Ther 09/02/16 10:23 Ordered Transfer/Admit Order [TRANSFER] Routine Transfer 09/02/16 11:39 Ordered Result Diagrams: 09/02/16 10:13 09/02/16 10:13 - EKG 1 Time of EKG reading by physician:: 10:30 EKG Read and Signed by:: Amos Pham EKG Interpretation (*Must complete 3 of following elements*): Abnormal Rate: 68 Rhythm: NSR [place]: normal [place] Interval: normal Prior EKG Comparison: unchanged from prior - CONSULTS/PCP/HOSPITALIST Notification #1 *Consult/PCP/Hospitalist*: DR Andersen Time Discussed: 11:43 Consult Disposition: Admit Departure - Departure Date of Disposition Decision: 09/02/16 Time of Disposition Decision: 11:43 DIAGNOSIS: Hematuria, S/P TURP, Renal insufficiency Anemia Qualifiers: Anemia type: iron deficiency Iron deficiency anemia type: unspecified iron deficiency Qualified Code(s): D50.9 - Iron deficiency anemia, unspecified Disposition: ADMITTED INPATIENT 09 Certified Medical Emergency: Emergent Condition: Fair Referrals and Follow-Ups: Kathi Liu MD [Primary Care Provider] - - Critical Care Note This patient required my direct & personal management of CC.: No Comments: A 85 y/o M with prostate cancer and suprapubic catheter inplace presented with hematuria macroscopic, with drop in Hb, pt remained stable was given 2 units of PRBC and admit to Hospitalist This chart was documented by the indicated scribe, (Renan Le Scribe) and accurately reflects the services I performed and decisions made by me, Amos Pham MD, as attested by the provider's signature.
[2016-09-02 11:55] LABS: URINE EPITHELIAL CELLS >10 /HPF (<10); URINE RBC TNTC /HPF (<10); URINE WBC TNTC /HPF (<10)
--- NOTE | 2016-09-02 14:47 | HISTORY AND PHYSICAL ---
CHIEF COMPLAINT: Weakness and gross hematuria. HISTORY OF PRESENT ILLNESS: Mr. Obrien is a pleasant yet unfortunate 85-year-old male with a history of prostate cancer who has had radiation treatments in the past. Secondary to that he has acquired hemorrhagic cystitis. He has a suprapubic catheter and has had multiple admissions to our facility for hematuria requiring PRBC transfusion. His most recent discharge was 3 days ago. At that time he required PRBC transfusion, urology saw him but did not do any procedure. He comes in today with multiple days of gross hematuria and weakness. He denies any chest pain, shortness of breath, fever, chills, cough or congestion, no abdominal pain. When he got to the ER he was noted to have an hemoglobin and hematocrit of 6.6 and 19.9 . The ER has ordered 2 units of PRBCs and we are now going to admit him for further treatment and evaluation. PAST MEDICAL HISTORY: 1. Prostate cancer. 2. [place] teeth extraction. 3. Vocal cord surgery. 4. TURP. 5. Direct visual internal urethrotomy. 6. Placement of suprapubic tube. 7. Multiple prostate biopsies. 8. Multiple cystoscopies. 9. Prostate cancer status post radiation therapy. 10. Chronic renal insufficiency. 11. Hypertension. 12. Chronic blood loss anemia. 13. GERD. 14. Depression. SURGICAL HISTORY: Transrectal prostate ultrasound and biopsies, direct visual internal urethrotomy, placement of suprapubic tube, vocal cord surgery, wisdom teeth extraction. SOCIAL HISTORY: No history of tobacco, alcohol or drug use. ALLERGIES: No known drug allergies. REVIEW OF SYSTEMS: Fourteen-point review of systems obtained, found to be negative with the exception of the HPI. HOME MEDICATIONS: Citalopram 10 mg daily, conjugated estrogen 0.625 mg b.i.d., Metamucil 330.6 g daily, Icar 1 b.i.d., multivitamin 1 daily, Protonix 40 mg daily, Elmiron 100 mg p.o. in the morning, Carafate 1 g p.o. 4 times a day. PHYSICAL EXAMINATION: VITAL SIGNS: Blood pressure is 129/63, heart rate 60, respiratory 18, O2 saturation 98% on room air, temperature is 97.9 degrees. GENERAL: This is an elderly male lying in hospital bed. No acute distress. NEUROLOGIC: The patient is awake, alert, and oriented. Follows commands without focal deficits. HEENT: Head atraumatic and normocephalic. Pupils equal, round, reactive to light. Oral mucosa is dry and pale. NECK: Supple. Trachea is midline. No JVD. CHEST: Clear to auscultation bilaterally. CV: Regular rate and rhythm. S1-S2 is noted. GI: Soft, nondistended, nontender. Bowel sounds are positive. Suprapubic catheter tube noted, the site is clean, dry and intact. Urine collecting bag has gross hematuria. Bowel sounds are hypoactive. EXTREMITIES: 1+ edema bilaterally. DIAGNOSTIC DATA: WBC 3.69, hemoglobin 6.6, hematocrit 19.9. Sodium 131, potassium 4.6, chloride 97, CO2 24, anion gap 10, BUN 27, creatinine 2.3 glucose 108, calcium 8.7, AST 19, ALT 13, alkaline phosphatase 83, troponin 0.020, albumin 3.4. UA shows large amounts of blood, positive nitrites, too numerous to count WBCs. ASSESSMENT AND PLAN: 1. Gross hematuria: Secondary to hemorrhagic cystitis. Will consult urology and treat his underlying anemia. Will also check coagulation studies. 2. Acute on chronic blood loss anemia: Will continue his Icar add 2 units of PRBCs and continue to trend his hemoglobin and hematocrit and transfuse as necessary. 3. Chronic kidney disease: Creatinine a bit more elevated than normal. Will add IV fluid hydration, avoid any nephrotoxics. 4. Hypovolemic hyponatremia: Will add IV fluids and trend his sodium. 5. History of prostate cancer currently receiving hyperbaric oxygen therapy: Will defer any treatments to urology. 6. Deep vein thrombosis prophylaxis will be provided with SCDs given his bleeding. Further recommendations to follow. Dictated by BAYRON Medel for Javi Thurston MD cc: BAYRON Medel MD
[2016-09-02] MEDS: NS 1,000 ML IV SCH (15:10)
[2016-09-02] MEDS: ZOSYN 2.25 GM/NS 2.25 GM/50 ML IVPB IV SCH ×2 (15:10→21:03)
[2016-09-02] MEDS: CARAFATE PO SCH ×3 (16:05→21:04)
[2016-09-02] MEDS: ELMIRON PO SCH ×2 (16:05→21:04)
[2016-09-02] MEDS: PREMARIN PO SCH (21:04)
[2016-09-02] MEDS: ICAR-C PO SCH (21:04)
[2016-09-03] MEDS: ZOSYN 2.25 GM/NS 2.25 GM/50 ML IVPB IV SCH ×4 (03:04→20:47)
--- NOTE | 2016-09-03 05:19 | EKG Report ---
Test Performed on : 09/02/2016 10:21:23 AM Test Reason : anemia Blood Pressure : / mmHG Vent. Rate : 068 BPM Atrial Rate : 068 BPM P-R Int : 192 ms QRS Dur : 156 ms QT Int : 450 ms P-R-T Axes : 001 -09 089 degrees QTc Int : 478 ms Normal sinus rhythm. Left bundle branch block Abnormal ECG When compared with ECG of 17-AUG-2016 06:24, No significant change was found Unconfirmed Result
[2016-09-03 06:50] LABS: CALCIUM 8.6 mg/dL (8.8-10.2); POTASSIUM 5.2 mmol/L (3.5-5.1)
[2016-09-03 07:06] LABS: MCH 30.7 PG (27-31); MCHC 33.3 g/dL (33-37); MPV 8.5 FL (7.4-10.4); RBC 2.61 XMIL (4.7-6.1)
[2016-09-03] MEDS: METAMUCIL POWDER PACKET PO SCH (08:42)
[2016-09-03] MEDS: ELMIRON PO SCH ×3 (08:43→20:47)
[2016-09-03] MEDS: CENTRUM SILVER PO SCH (08:43)
[2016-09-03] MEDS: ICAR-C PO SCH ×2 (08:44→20:47)
[2016-09-03] MEDS: CARAFATE PO SCH ×4 (08:44→20:47)
[2016-09-03] MEDS: PROTONIX PO SCH (08:44)
[2016-09-03] MEDS: CELEXA PO SCH (08:45)
[2016-09-03] MEDS: PREMARIN PO SCH ×2 (09:24→20:48)
[2016-09-03] MEDS: NS 1,000 ML IV SCH ×2 (12:34→17:50)
[2016-09-03 14:10] LABS: INR 1.04; PROTIME 10.9 Seconds (9.2-11.7)
[2016-09-03 16:02] LABS: HEMOGLOBIN 7.8 g/dL (14.0-18.0)
--- NOTE | 2016-09-03 19:29 | PROGRESS NOTE ---
DATE: 09/03/2016 SUBJECTIVE: The patient is sitting up in the chair. His Elias catheter is in place and it contains bloody urine. OBJECTIVE: Vital Signs: Temperature 97.7 degrees, blood pressure 120/46, heart rate 71, respirations 18, O2 saturation is 100% on room air. General: This is an elderly male, sitting in a chair in no acute distress. Head: Normocephalic, atraumatic. Heart: S1, S2. Normal. Regular rate and rhythm. Lungs: Clear to auscultation bilaterally. No wheezes, no rales. No rhonchi. Abdomen: Positive bowel sounds. Soft, nontender, nondistended. Extremities: No edema. No cyanosis. No calf tenderness. Neurologic: The patient is alert oriented x3. LABORATORY: White blood cell count 3.4, hemoglobin 7.8, hematocrit 24, platelets 235,000. Sodium 137, potassium 5.2. Chloride 102. CO2 24, BUN 25. Creatinine 2. ASSESSMENT/PLAN: 1. Gross hematuria secondary to hemorrhagic cystitis. We will continue to monitor the patient closely. Urology has been consulted. We will monitor the hemoglobin and hematocrit closely and transfuse p.r.n. 2. Anemia of acute blood loss. We will monitor the patient's hemoglobin and hematocrit and transfuse p.r.n. 3. Urinary tract infection. The patient is currently on Zosyn. We will also check a urine culture. 4. History of prostate cancer. Aware. 5. Gastroesophageal reflux disease. Continue on Protonix. cc: Irena Paz MD
--- NOTE | 2016-09-03 19:34 | CONSULTATION ---
DATE OF CONSULTATION: 09/03/2016 ATTENDING AND REFERRING PHYSICIAN: Hospitalist. HISTORY OF PRESENT ILLNESS: This 85-year-old male has a history of prostate cancer. He completed radiation therapy in May 2012. His PSA was 0.02 in May 10. He has a long history of recurrent gross hematuria. He has had clot retention multiple times. He had to have a suprapubic tube placed. He has had symptomatic acute blood-loss anemia and has had multiple blood transfusions over the last several months. The patient has had a previous cystoscopic examination, clot irrigation and fulguration. He is on Elmiron 100 mg 3 times a day and Premarin 0.625 mg b.i.d. He continues with the bleeding. He has started hyperbaric oxygen therapy and has had about 30 treatments of a scheduled 60, but continues with hemorrhage. The patient states that yesterday he just started feeling really bad and knew he had lost blood and was seen in the emergency room. His hemoglobin was 6.6. He was transfused 2 units and admitted. The patient states he irrigates his suprapubic tube himself. PAST MEDICAL HISTORY: Chronic renal insufficiency. Hypertension. Gastroesophageal reflux disease. Depression. CURRENT MEDICATIONS: Documented on the chart and include the medications that were mentioned in the history of present illness. PAST SURGICAL HISTORY: Transrectal prostate ultrasound and biopsies. Radiation therapy for prostate cancer. Vocal cord surgery. TURP. [place] teeth extraction. Direct visual internal urethrotomy. Placement of a suprapubic tube. Cysto-clot irrigation under anesthesia. SOCIAL HISTORY: No tobacco or alcohol use. ALLERGIES: No known drug allergies. REVIEW OF SYSTEMS: He states that for a while he was feeling well, but now just feels weak. He denies any problems with heart disease, strokes, seizures or diabetes. PHYSICAL EXAMINATION: General: A normally developed, well-nourished, age apparent, white male, oriented in all ways and cooperative. HEENT: Normal for age. Lungs: Clear. Cardiovascular: Regular rate and rhythm. Abdomen: Protuberant, soft, nontender. No hepatosplenomegaly or masses. Normal bowel sounds. Suprapubic tube in place draining bloody urine. : Normal male, both testes down. Scrotal exam is normal. Some blood at the meatus. Rectal: Deferred until surgery. Extremities: No clubbing, cyanosis, or edema. Neurologic: No focal deficits. DIAGNOSTIC DATA: After 2 units of packed cells, has a white count of 3.49, hemoglobin of 8, hematocrit 24, platelets are 235,000. Serum electrolytes: Has a sodium of 137, potassium 5.2, chloride 102, bicarb 24, BUN 25, creatinine 2. IMPRESSION: Patient with acute blood-loss anemia secondary to hemorrhagic cystitis that is due to radiation therapy. Recommend to continue Elmiron and estrogen. We will schedule cystoscopic exam with clot irrigation and fulguration of any bleeding areas, which usually is not the case. Usually it is a diffuse ooze with no specific area or artery bleeding. We will start alum irrigation after his bladder is completely clear of clots. This may or may not slow down his bleeding. 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 Thank you for this consultation. cc: Bruce Guthrie MD
[2016-09-04] MEDS: NS 1,000 ML IV SCH ×3 (01:36→22:25)
[2016-09-04] MEDS: ZOSYN 2.25 GM/NS 2.25 GM/50 ML IVPB IV SCH ×4 (01:37→20:27)
[2016-09-04 07:04] LABS: HEMATOCRIT 24.7 % (42.0-52.0); MCH 30.4 PG (27-31); MCHC 32.4 g/dL (33-37); MCV 93.9 FL (81-99); MPV 8.7 FL (7.4-10.4); RBC 2.63 XMIL (4.7-6.1)
[2016-09-04 07:11] LABS: CALCIUM 8.7 mg/dL (8.8-10.2); POTASSIUM 4.6 mmol/L (3.5-5.1)
[2016-09-04] MEDS: [UNRECOGNIZED DRUG - OTHER] IRR PRN ×3 (10:25→21:48)
[2016-09-04] MEDS: MORPHINE ONE ×4 (10:52→11:20)
--- NOTE | 2016-09-04 11:26 | OPERATIVE NOTE ---
PROCEDURE DATE: 09/04/2016 SURGEON: Dr. Bruce Guthrie. PREOPERATIVE DIAGNOSES: 1. Hemorrhagic cystitis secondary to previous radiation therapy for prostate cancer. 2. Symptomatic acute blood-loss anemia. POSTOPERATIVE DIAGNOSES: 1. Hemorrhagic cystitis secondary to previous radiation therapy for prostate cancer. 2. Symptomatic acute blood-loss anemia. PROCEDURE PERFORMED: Cystoscopic examination, clot irrigation, fulguration of bleeding areas, start alum irrigation. FINDINGS: Cystoscopic exam: Urethra-greater than 21-Ecuadorean without stricture. 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 There were bleeding areas from the very small lateral lobes of the prostate and bladder neck. There were bleeding areas on the trigone and lower bladder wall with areas of neovascularity. There were grade 1-2 trabeculations, small cellules, and diverticula. No papillary lesions noted. The suprapubic tube was in place. Rectal exam reveals a very flat prostate fossa with palpable firm prostate lobes. INDICATION FOR PROCEDURE: This 85-year-old male with a history of prostate cancer, status post radiation therapy, has a 4 month history of intermittent gross hematuria. He has been admitted several times for clot retention and blood transfusions. He is currently undergoing hyperbaric oxygen therapy and is taking estrogen and Elmiron in an attempt to control bleeding. DESCRIPTION OF PROCEDURE: After informed consent was obtained from the patient and him receiving IV antibiotics, he was taken the main OR cystoscopy room and placed in the supine position. General anesthesia via laryngeal mask was achieved. He was then placed in a low lithotomy position, and prepped and draped in the usual sterile fashion for lower abdominal surgery and a cystoscopic exam. A 21-Ecuadorean cystoscope was passed through the patient's urethra, prostate, and bladder with findings as noted above. The bladder was completely irrigated free of clots. The Bugbee electrode was then placed and hemostasis achieved. After hemostasis was achieved, both ureteral orifices were visualized. The bladder was left distended. The suprapubic tube was changed without difficulty. There were 10 mL of sterile water placed in the suprapubic tube balloon. The cystoscope was removed and a 20-Ecuadorean, 3 way hematuria catheter was placed. Then 15 mL of sterile water were placed in its balloon. Alum irrigation was started going in the suprapubic tube and out the Elias catheter. The irrigation port on the urethral catheter was plugged. The efflux was clear. The alum irrigation will be run at a rate needed to keep the efflux completely clear. He tolerated the procedure well. Estimated blood loss about 5 mL. He was taken to the recovery room in good condition. cc: Bruce Guthrie MD
[2016-09-04] MEDS ORDERED: DIPRIVAN 1% ONE (12:29)
[2016-09-04] MEDS ORDERED: XYLOCAINE-MPF 2% ONE (13:25)
[2016-09-04] MEDS: PROTONIX PO SCH (14:40)
[2016-09-04] MEDS: CARAFATE PO SCH ×4 (14:40→20:27)
[2016-09-04] MEDS: CENTRUM SILVER PO SCH (14:41)
[2016-09-04] MEDS: CELEXA PO SCH (14:41)
[2016-09-04] MEDS: PREMARIN PO SCH ×2 (14:41→20:27)
[2016-09-04] MEDS: ICAR-C PO SCH ×2 (14:42→20:27)
[2016-09-04] MEDS: METAMUCIL POWDER PACKET PO SCH (14:42)
[2016-09-04] MEDS: ELMIRON PO SCH ×3 (14:42→20:27)
--- NOTE | 2016-09-04 15:39 | PROGRESS NOTE ---
DATE: 09/04/2016 SUBJECTIVE: The patient is resting comfortably in bed. No acute events noted overnight. OBJECTIVE: Vital Signs: Temperature 97 degrees, blood pressure 150/68, heart rate 76, respirations 18, O2 saturations 98% on room air. General: This is an elderly male, lying in bed, in no acute distress. Head: Normocephalic, atraumatic. Heart: S1, S2. Normal. Regular rate and rhythm. Lungs: Clear to auscultation bilaterally. Abdomen: Positive bowel sounds. Soft, nontender, nondistended. Extremities: No edema. No cyanosis. No calf tenderness. Neurologic: The patient is alert oriented x3. LABORATORY: Hemoglobin 8, hematocrit 24, platelets 244,000, BUN 23, creatinine 2. ASSESSMENT AND PLAN: 1. Gross hematuria secondary to hemorrhagic cystitis. Management as per the urologist. 2. Stage 3 chronic kidney disease. Stable. 3. Anemia of acute blood loss. The patient's hemoglobin and hematocrit is stable. Transfuse p.r.n. 4. History of prostate cancer. Aware. cc: Irena Paz MD
[2016-09-04] MEDS ORDERED: MORPHINE IV PRN (22:02)
[2016-09-05] MEDS: DILAUDID IV PRN ×7 (00:40→20:03)
[2016-09-05] MEDS: [UNRECOGNIZED DRUG - OTHER] IRR PRN ×6 (01:30→21:57)
[2016-09-05] MEDS: ZOSYN 2.25 GM/NS 2.25 GM/50 ML IVPB IV SCH ×4 (03:33→21:51)
[2016-09-05 07:14] LABS: HEMATOCRIT 27.6 % (42.0-52.0); MCH 30.1 PG (27-31); MCHC 32.6 g/dL (33-37); MCV 92.3 FL (81-99); MPV 8.5 FL (7.4-10.4); RBC 2.99 XMIL (4.7-6.1)
[2016-09-05 07:30] LABS: CALCIUM 8.7 mg/dL (8.8-10.2); POTASSIUM 4.7 mmol/L (3.5-5.1)
[2016-09-05] MEDS ORDERED: MAGNESIUM SULFATE 2 GM/S.W.I. 2 GM/50 ML IVPB IV ONE (09:00)
[2016-09-05] MEDS: PREMARIN PO SCH ×2 (09:43→21:51)
[2016-09-05] MEDS: ELMIRON PO SCH ×3 (09:43→21:51)
[2016-09-05] MEDS: PROTONIX PO SCH (09:43)
[2016-09-05] MEDS: CENTRUM SILVER PO SCH (09:43)
[2016-09-05] MEDS: ICAR-C PO SCH ×2 (09:44→21:51)
[2016-09-05] MEDS: CELEXA PO SCH (09:44)
[2016-09-05] MEDS: CARAFATE PO SCH ×4 (09:44→21:51)
[2016-09-05] MEDS: METAMUCIL POWDER PACKET PO SCH (09:45)
--- NOTE | 2016-09-05 16:10 | PROGRESS NOTE ---
DATE: 09/05/2016 SUBJECTIVE: The patient's urine is clear. There is no further evidence of hematuria. OBJECTIVE: Vital Signs: Temperature 97.6 degrees, blood pressure 103/44, heart rate 78, respirations 24, O2 saturations 96% on room air. General: This is an elderly male, lying in bed, in no acute distress. Head: Normocephalic atraumatic. Heart: S1, S2. Normal. Regular rate and rhythm. Lungs: Clear to auscultation bilaterally. Abdomen: Positive bowel sounds. Soft, nontender, nondistended. Extremities: No edema. No cyanosis. No calf tenderness. Neurologic: The patient is alert and oriented x3. LABS: White blood cell count 7.9, hemoglobin 9, hematocrit 27, platelets 311,000. Sodium 137, potassium 4.7, chloride 100, CO2 23, BUN 19, creatinine 2, glucose 138. ASSESSMENT AND PLAN: 1. Hemorrhagic cystitis secondary to radiation therapy status post clot irrigation and alum irrigation. The patient no longer has hematuria. Further management as per the urologist. 2. Stage 3 chronic kidney disease. Stable. 3. History of prostate cancer status post radiation therapy. Aware. 4. Anemia. Stable. 5. Disposition. We will await clearance from the urologist regarding discharge. cc: Irena Paz MD
[2016-09-05] MEDS ORDERED: B & O 15A SUPP PR PRN (17:07)
[2016-09-05] MEDS: NORCO-10 PO PRN ×2 (17:35→21:52)
[2016-09-06] MEDS: ZOSYN 2.25 GM/NS 2.25 GM/50 ML IVPB IV SCH ×2 (01:55→09:57)
[2016-09-06] MEDS: DILAUDID IV PRN ×3 (01:55→09:51)
[2016-09-06] MEDS: NORCO-10 PO PRN (03:16)
[2016-09-06 07:07] LABS: HEMATOCRIT 26.3 % (42.0-52.0); HEMOGLOBIN 8.6 g/dL (14.0-18.0); MCHC 32.7 g/dL (33-37); MCV 91.6 FL (81-99); MPV 8.7 FL (7.4-10.4); RBC 2.87 XMIL (4.7-6.1)
[2016-09-06 07:15] LABS: CALCIUM 8.8 mg/dL (8.8-10.2); POTASSIUM 4.4 mmol/L (3.5-5.1)
[2016-09-06 07:53] VITALS: BP 164/74
[2016-09-06] MEDS: ICAR-C PO SCH (09:54)
[2016-09-06] MEDS: CARAFATE PO SCH (09:54)
[2016-09-06] MEDS: CELEXA PO SCH (09:54)
[2016-09-06] MEDS: PROTONIX PO SCH (09:54)
[2016-09-06] MEDS: ELMIRON PO SCH (09:54)
[2016-09-06] MEDS: PREMARIN PO SCH (09:55)
[2016-09-06] MEDS: CENTRUM SILVER PO SCH (09:55)
[2016-09-06] MEDS: METAMUCIL POWDER PACKET PO SCH (09:55)
--- NOTE | 2016-09-17 12:05 | DISCHARGE SUMMARY ---
ADMISSION DATE: 09/02/2016 DISCHARGE DATE: 09/06/2016 PRIMARY CARE PHYSICIAN: Dr. Liu. FINAL DISCHARGE DIAGNOSES: 1. Hemorrhagic cystitis secondary to radiation therapy, status post clot irrigation. 2. Stage III chronic kidney disease. 3. History of prostate cancer status post radiation therapy. 4. Anemia of acute blood loss. CONSULTATIONS REQUESTED DURING THIS HOSPITAL STAY: Urology consultation with Dr. Guthrie. PROCEDURES PERFORMED DURING THIS HOSPITAL STAY: Cystoscopic examination with clot irrigation and fulguration of the bleeding areas HOSPITAL COURSE: Mr. Obrien is an 85-year-old male with a history of prostate cancer status post radiation therapy, who developed hemorrhagic cystitis. The patient presented to the ER with gross hematuria. The patient was severely anemic as a result of the hematuria and required a blood transfusion. The patient was admitted to the hospitalist's service and urology was consulted for further assistance. It was decided to take the patient to the OR for cystoscopic examination. During the procedure, the patient also underwent clot irrigation. The patient did have some clearing of his urine, however the hematuria returned. The patient was advised to consider possible removal of his bladder with resection. The patient stated that he would most likely be referred to [facility] by Dr. Guthrie. On the day of discharge, the patient was noted to have a hemoglobin of 8.6 with a hematocrit of 26. DISCHARGE MEDICATIONS: 1. Hart 10/325, 1 tab oral every 4 hours p.r.n. for pain. 2. Icar C one tab oral twice a day. 3. Multivitamin 1 tab oral daily. 4. Metamucil 1 tablet oral daily. 5. Protonix 40 mg p.o. daily. 6. Carafate 1 g p.o. 4 times a day. 7. Elmiron 100 mg p.o. 3 times a day. 8. Celexa 10 mg p.o. daily. 9. Premarin 0.625 mg p.o. twice a day. DISCHARGE DIET: Low-sodium diet. ACTIVITY: As tolerated. FOLLOWUP INSTRUCTIONS: The patient has been advised to follow up with Dr. Guthrie as scheduled by his clinic. cc: Irena Paz MD
== END 2016-09-06 12:01 | disposition home or self-care (01) ==
LOC: ED 09:53 → 3N 12:12 → SUATTDRO 12:12
PROVIDERS: ATTEND Internal Medicine

== ENCOUNTER 2016-09-16 15:26 | Inpatient (IN) ==
[2016-09-16 16:07] LABS: MANUAL DIFF NEEDED? NO
[2016-09-16 16:22] LABS: INR 1.03; PROTIME 10.8 Seconds (9.2-11.7)
[2016-09-16 16:24] LABS: URINE SOURCE CLEAN CATCH
[2016-09-16 16:27] LABS: BASO% 0.4 % (0.0-0.8); EOS# 0.28 X1000 (0.0-0.7); EOS% 3.9 % (0.0-10.0); HEMATOCRIT 21.3 % (42.0-52.0); IMM GRAN# 0.03 X1000 (0.0-0.04); IMM GRAN% 0.4 % (0.0-0.5); LYMPH# 1.32 X1000 (1.2-3.4); LYMPH% 18.6 % (20.5-51.1); MCH 29.8 PG (27-31); MCHC 32.9 g/dL (33-37); MCV 90.6 FL (81-99); MONO# 0.84 X1000 (0.11-0.59); MONO% 11.8 % (1.7-9.3); MPV 8.7 FL (7.4-10.4); NEUT% 64.9 % (42.2-75.2); PLT 406 X1000 (130-400); RBC 2.35 XMIL (4.7-6.1)
[2016-09-16 16:35] LABS: ALBUMIN 3.4 g/dL (3.5-5.0); CALCIUM 8.8 mg/dL (8.8-10.2); POTASSIUM 4.7 mmol/L (3.5-5.1); TOTAL BILIRUBIN 0.14 mg/dL (0.20-1.00); TOTAL PROTEIN 6.2 g/dL (6.3-8.3)
[2016-09-16 16:40] LABS: BILIRUBIN URINE NEGATIVE (NEGATIVE); BLOOD URINE LARGE (NEGATIVE); COLOR BROWN; GLUCOSE URINE NEGATIVE (NEGATIVE); LEUKOCYTES URINE LARGE (NEGATIVE); NITRITE URINE NEGATIVE (NEGATIVE); PH URINE 6.5; PROTEIN URINE 200 mg/dL (NEGATIVE); TURBIDITY URINE TURBID (CLEAR); UR EPITHELIAL CELLS <10 /HPF (<10); URINE BACTERIA 1+ /HPF; URINE CULTURE NEEDED? YES; URINE MICRO REVIEW NEEDED? YES; URINE RBC TNTC /HPF (<10); URINE WBC TNTC /HPF (<10); UROBILINOGEN URINE NORMAL (NORMAL)
--- NOTE | 2016-09-16 16:51 | ED EKG INTERP ---
This chart was entered by Belinda Vargas Scribe, acting as scribe for Spring Walton MD. EKG Interpretation - EKG Time of EKG reading by physician:: 15:36 EKG Read and Signed by:: Spring Walton EKG Interpretation (*Must complete 3 of following elements*): Abnormal Rate: 63 Rhythm: normal sinus rhythm Comments: LBBB This chart was documented by the indicated scribe, (Belinda Vargas Scribe) and accurately reflects the services I performed and decisions made by me, Spring Walton MD, as attested by the provider's signature.
[2016-09-16 17:13] LABS: URINE CASTS NONE SEEN; URINE CRYSTALS NONE SEEN; URINE SMALL ROUND CELLS NONE SEEN
--- NOTE | 2016-09-16 20:17 | PROVIDER DOCUMENTATION ---
This chart was entered by Nuvia Downing Scribe, acting as scribe for Rohith Lawrence MD. HPI-Male Problem - General Chief Complaint: Abnormal Lab[s] Stated Complaint: ABNORMAL LABS Time Seen by Provider: 09/16/16 19:50 Source: patient Allergies/Adverse Reactions: Patient Allergies Allergy/AdvReac Type Severity Reaction Status Date / Time No Known Allergies Allergy Verified 09/16/16 19:32 Home Medications: Home Medication List Medication Instructions Recorded Confirmed Last Taken Type Inulin [Metamucil] 330.6 gm PO DAILY #1 powder 05/24/16 09/02/16 09/02/16 Rx Iron Carbonyl/Ascorbic Acid 1 each PO BID #60 tablet 05/24/16 09/02/16 09/02/16 Rx [Icar-C] Multivitamins/Minerals [Centrum 1 each PO DAILY #30 tablet 05/24/16 09/02/1603/09 Rx Silver] Pantoprazole Sodium [Protonix] 40 mg PO DAILY #30 tablet. 05/24/16 09/02/16 Rx Citalopram Hydrobromide 10 mg PO DAILY #30 tablet 07/11/16 09/02/16 09/02/16 Rx [Citalopram HBr] Estrogens, Conjugated [Premarin] 0.625 mg PO BID #60 tablet 07/11/16 09/02/16 Rx Pentosan [Elmiron] 100 mg PO 0900,1500,2100 #90 07/11/16 09/02/16 09/02/16 Rx capsule Sucralfate [Carafate] 1 gm PO 4XDAY #120 tablet 07/11/16 09/02/16 09/02/16 Rx Hydrocodone/APAP 10 mg/325 mg 1 each PO Q4H PRN #30 tablet 09/06/16 Unknown Rx [Elliott-10] Opium/Belladonna Supp [B & O 15A 1 each NE Q6H PRN PRN #30 supp 09/06/16 Unknown Rx Supp] - History of Present Illness-Male Nature of Presenting Problem: Pt is a 85 year old male who came to the ED with a cc of having blood in his urine. pt reports he has prostate cancer. PT reports he has been to the hospital a number of times for blood transfusions. Pt has abnormal labs. Location of Complaint: reports: unknown Radiation: reports: none Quality of Pain: reports: none Onset/Duration: reports: unsure Timing: reports: still present Context/Activities at Onset: reports: none Urinary Symptoms: reports: hematuria Associated Symptoms: reports: denies symptoms Similar Symptoms Previously?: Yes Recently seen or treated by another doctor?: Yes Review of Systems - Adult - REVIEW OF SYSTEMS - ADULT Constitutional: denies: chills, fever Eyes: reports: no symptoms reported Ears, Nose, Mouth & Throat: reports: no symptoms reported Cardiovascular: denies: chest pain, heart murmur, palpitations Respiratory: reports: no symptoms reported Gastrointestinal: denies: diarrhea, nausea, vomiting Genitourinary: reports: hematuria. denies: dysuria, flank pain, hesitency Musculoskeletal: denies: bone pain, joint pain Integumentary: reports: no symptoms reported Neurological: reports: no symptoms reported Psychiatric: reports: no symptoms reported Endocrine: reports: no symptoms reported Hematologic/Lymphatic: reports: no symptoms reported Allergic/Immunologic: reports: no symptoms reported All Other Systems: Reviewed and Negative Past History - Adult - PAST MEDICAL HISTORY-ADULT Review of Records: reports: Nursing Assessment Review Major Childhood Illnesses: reports: denies history Cardiovascular: reports: HTN Respiratory: reports: denies history Gastrointestinal: reports: GI bleed, ulcer Obstetrical/Gynecological: reports: denies history Genitourinary: reports: kidney disease, prostate cancer, other (suprapubic catheter) Musculoskeletal: reports: denies history Neurological: reports: denies history Endocrine/Immune: reports: denies history Other Conditions: reports: denies history - PRIOR SURGERIES/PROCEDURES Surgical/Procedure History: reports: reviewed, not pertinent - IMMUNIZATION STATUS Childhood Immunizations: See Nurse Assessment Flu Vaccine: See Nurse Assessment - FAMILY HISTORY Family History: reviewed, not pertinent Physical Exam-General - PHYSICAL EXAM-ADULT Initial Vital Signs Reviewed: Yes - CONSTITUTIONAL General Appearance: alert, no apparent distress - EYES Eyes: PERRL/EOMI, pink conjunctivae - HEAD, EARS, NOSE, MOUTH & THROAT HENMT: normocephalic/atraumatic, moist mucous membranes, normal ENT inspection - NECK Neck: supple, normal inspection - RESPIRATORY Respiratory: chest non-tender, lungs clear, normal breath sounds - CARDIOVASCULAR Cardiovascular: normal peripheral pulses, regular rate, rhythm, no edema - GASTROINTESTINAL (ABDOMEN) Abdominal Exam: normal bowel sounds, non tender, soft, other (suprapubic catheter) - LYMPHATIC Lymphatic: no adenopathy - MUSCULOSKELETAL Back Exam: normal inspection, no CVA tenderness, no vertebral tenderness Extremity: normal range of motion, non-tender - SKIN Integumentary: normal color, normal turgor, warm/dry - NEUROLOGIC Neurologic: grossly normal, no motor/sensory deficits - PSYCHIATRIC Psych/Mental Status: normal mood/affect, normal thought content, normal thought process, oriented x 3 Progress - PLAN OF CARE/RESULTS Progress/Plan/Lab Results: Vital Signs - 8 hr 09/16/16 15:31 09/16/16 20:07 Temperature 97.8 F Pulse Rate 63 79 Respiratory Rate 18 18 Blood Pressure 146/56 190/83 O2 Sat by Pulse Oximetry 100 98 Laboratory Results - last 24 hr 09/16/16 09/16/16 09/16/16 15:41 15:41 15:41 WBC 7.09 RBC 2.35 L Hgb 7.0 L Hct 21.3 L MCV 90.6 MCH 29.8 MCHC 32.9 L RDW Std Deviation 13.4 Plt Count 406 H MPV 8.7 Immature Gran % (Auto) 0.4 Neut % (Auto) 64.9 Lymph % (Auto) 18.6 L [place] % (Auto) 11.8 H Eos % (Auto) 3.9 Baso % (Auto) 0.4 Immature Gran # (Auto) 0.03 Neut # (Auto) 4.59 Lymph # (Auto) 1.32 [place] # (Auto) 0.84 H Eos # (Auto) 0.28 Baso # (Auto) 0.03 PT 10.8 INR 1.03 PTT (Actin FS) 28.0 Sodium 133 L Potassium 4.7 Chloride 97 L Carbon Dioxide 23 L Anion Gap 13 BUN 21 Creatinine 1.7 H Estimated GFR/1.73 m2 38 BUN/Creatinine Ratio 12 Glucose 84 Calculated Osmolality 269 Calcium 8.8 Total Bilirubin 0.14 L AST 13 ALT 7 L Alkaline Phosphatase 75 Total Protein 6.2 L Albumin 3.4 L Globulin 2.8 Albumin/Globulin Ratio 1.2 Urine Source Urine Color Urine Turbidity Urine pH Ur Specific [place] Urine Protein Ur Glucose (Stick) Ur Ketones (Stick) Urine Blood Urine Nitrite Urine Bilirubin Urobilinogen Dipstick Urine Leukocytes Urine WBC (Auto) Urine RBC (Auto) U Epithel Cells (Auto) Urine Bacteria (Auto) Urine Crystals Small Round Cells Urine Casts Urine Yeast-like Cells Blood Type Antibody Screen 09/16/16 09/16/16 15:41 16:18 WBC RBC Hgb Hct MCV MCH MCHC RDW Std Deviation Plt Count MPV Immature Gran % (Auto) Neut % (Auto) Lymph % (Auto) [place] % (Auto) Eos % (Auto) Baso % (Auto) Immature Gran # (Auto) Neut # (Auto) Lymph # (Auto) [place] # (Auto) Eos # (Auto) Baso # (Auto) PT INR PTT (Actin FS) Sodium Potassium Chloride Carbon Dioxide Anion Gap BUN Creatinine Estimated GFR/1.73 m2 BUN/Creatinine Ratio Glucose Calculated Osmolality Calcium Total Bilirubin AST ALT Alkaline Phosphatase Total Protein Albumin Globulin Albumin/Globulin Ratio Urine Source CLEAN CATCH Urine Color BROWN Urine Turbidity TURBID Urine pH 6.5 Ur Specific [place] 1.010 Urine Protein 200 A Ur Glucose (Stick) NEGATIVE Ur Ketones (Stick) NEGATIVE Urine Blood LARGE A Urine Nitrite NEGATIVE Urine Bilirubin NEGATIVE Urobilinogen Dipstick NORMAL Urine Leukocytes LARGE A Urine WBC (Auto) TNTC A Urine RBC (Auto) TNTC A U Epithel Cells (Auto) <10 Urine Bacteria (Auto) 1+ Urine Crystals NONE SEEN Small Round Cells NONE SEEN Urine Casts NONE SEEN Urine Yeast-like Cells NONE SEEN Blood Type O NEGATIVE Antibody Screen NEGATIVE Orders Category Date Time Status CBC WITH DIFF [HEME] Stat Lab 09/16/16 15:41 Completed COMPREHENSIVE METABOLIC PANEL [CHEM] Stat Lab 09/16/16 15:41 Completed PROTIME WITH INR [COAG] Stat Lab 09/16/16 15:41 Completed PTT [COAG] Stat Lab 09/16/16 15:41 Completed TYPE & SCREEN [BBK] Stat Lab 09/16/16 15:41 Completed UA NIMS W/REFLEX CULT [URINALYSIS] Stat Lab 09/16/16 16:18 Completed URINE CULTURE [RM] Routine Lab 09/16/16 16:41 Received URINE MANUAL MICROSCOPIC [URINALYSIS] Stat Lab 09/16/16 16:18 Completed EKG [EKG] Stat Ther 09/16/16 15:37 Ordered Result Diagrams: 09/16/16 15:41 09/16/16 15:41 Departure - Departure Date of Disposition Decision: 09/16/16 Time of Disposition Decision: 20:16 DIAGNOSIS: Hematuria Anemia Qualifiers: Iron deficiency anemia type: chronic blood loss Disposition: ADMITTED INPATIENT 09 Certified Medical Emergency: Emergent Condition: Good - Critical Care Note This patient required my direct & personal management of CC.: No This chart was documented by the indicated scribe, (Nuvia Downing Scribe) and accurately reflects the services I performed and decisions made by me, Rohith Lawrence MD, as attested by the provider's signature.
[2016-09-16] MEDS ORDERED: NS 250 ML IV ONE (21:27)
[2016-09-16] MEDS ORDERED: NS 1,000 ML ONE (21:30)
[2016-09-16] MEDS ORDERED: NORCO-10 PO PRN (21:54)
[2016-09-16] MEDS ORDERED: ZOFRAN IV PRN (21:54)
[2016-09-16] MEDS ORDERED: B & O 15A SUPP PR PRN (21:54)
[2016-09-16] MEDS ORDERED: NS 1,000 ML IV SCH (21:54)
[2016-09-16] MEDS ORDERED: NORCO-10 ONE (21:57)
[2016-09-16] MEDS ORDERED: ROCEPHIN 1 GM/NS 1 GM/50 ML IVPB IV ONE (23:45)
--- NOTE | 2016-09-17 05:49 | HISTORY AND PHYSICAL ---
PRIMARY CARE PROVIDER: Dr. Liu. UROLOGIST: Dr. Guthrie. CHIEF COMPLAINT: Abnormal labs. Blood in urine. HISTORY OF PRESENT ILLNESS: Mr. Obrien is a pleasant 85-year-old male who came into the ER with a complaint of having chronic blood in his urine. Apparently, he was seen by his primary care provider, and was noted to have a low hemoglobin and hematocrit. It was checked in the emergency room and found to be 7 and 21.3. The patient has a suprapubic catheter after having a history of prostate cancer, and has hemorrhagic cystitis, secondary to the radiation treatments. Apparently, the bleeding, after multiple cystoscopies, cannot be stopped, and the patient is waiting to be seen in [place] for bladder removal. He has been seen in the hospital several times for blood transfusions. He does have additional complaints of dizziness and weakness. He denies any shortness of breath or chest pain. Does have complaint of just chronic mild fatigue. We will order 2 units of packed red blood cells in the emergency room, and place the patient in overnight for observation status, with a consult for Dr. Guthrie. PAST MEDICAL HISTORY: 1. Prostate cancer. 2. Chronic renal insufficiency. 3. Chronic blood-loss anemia. 4. GERD. 5. Depression. 6. Hypertension. 7. PUD, with GI bleed. PAST SURGICAL HISTORY: 1. Vocal cord surgery. 2. TURP. 3. Sherrill teeth extraction. 4. Direct visual internal urethrotomy. 5. Placement of a suprapubic catheter. 6. Multiple prostate biopsies. Multiple cystoscopies. SOCIAL HISTORY: Lives with his girlfriend. No history of tobacco, alcohol, or illicit drug use or abuse. FAMILY HISTORY: Father had a myocardial infarction, and at age 84. Mother, the patient stated, was otherwise healthy, until she just mainly of old age. ALLERGIES: No known drug allergies. HOME MEDICATIONS: 1. Icar-C 1 p.o. b.i.d. 2. Centrum Silver 1 p.o. daily. 3. Protonix 40 mg p.o. daily. 4. Elmiron 100 mg p.o. 0900, 1500, and 2100. 5. Carafate 1 g p.o. 4 times a day. 6. Premarin 0.625 mg p.o. b.i.d. 7. [place] 10 one p.o. q.4 p.r.n. REVIEW OF SYSTEMS: Fourteen point review of systems conducted with the patient. Pertinent positives listed above in the HPI. All other systems reviewed and found to be negative. PHYSICAL EXAMINATION: VITAL SIGNS: Temperature 98.2 degrees, pulse 67, respirations 19, blood pressure 152/63, oxygen saturation 99% on room air. GENERAL: A very pleasant 85-year-old male, lying in the ER stretcher. No acute distress. He was noted to be pale. HEENT: Head is atraumatic, normocephalic. Pupils equal, round, reactive to light. Extraocular eye movement intact. Sclerae is anicteric. Conjunctivae is pale. Oral mucosa is dry. NECK: Supple. Tenting noted to his skin was a sign of poor skin turgor. Trachea is midline. No JVD. No carotid bruits. CARDIAC: S1-S2 appreciated. No murmurs, gallops, or rubs. Regular rhythm. LUNGS: Clear to auscultation bilaterally. No rhonchi, wheezes, or rales. Symmetrical rise and fall with respirations. ABDOMEN: Soft, nondistended, nontender. Bowel sounds present in all 4 quadrants. Normoactive. No pulsatile mass. No organomegaly. Suprapubic catheter noted, with a clean, dry, and intact site. GENITOURINARY: As noted above, suprapubic catheter. Gross hematuria noted in the bag. EXTREMITIES: One-plus bilateral lower extremity edema, was noted to be pitting. 2+ pedal pulses. SKIN: Warm, dry, and intact. Pallor noted. DIAGNOSTIC DATA: WBC 7.09, hemoglobin 7, hematocrit 21.3, platelet count 406, 000. Coagulation studies within normal limits. Sodium 133, potassium 4.7, chloride 97, carbon dioxide 23, BUN 21, creatinine 1.7, glucose 84. Urine: Large amounts of blood, too numerous to count red blood cells, with leukocyte-esterase positive, and too numerous to count WBCs. ASSESSMENT AND PLAN: 1. Gross hematuria secondary to hemorrhagic cystitis. We will consult Dr. Guthrie. I believe the plan is to get the patient to [place] at some point for a bladder removal , as the bleeding cannot be stopped. 2. [id number] blood loss anemia. Continue Icar-C. Type and cross 2 units of packed red blood cells and transfuse. Recheck hemoglobin and hematocrit q.6 hours. 3. Chronic kidney disease, stage 3. Will give gentle fluid hydration, to be stopped while blood transfuses. 4. Hypovolemic hyponatremia, which is mild. As noted, we will give gentle fluid hydration. Hopeful this will correct. We will check a.m. labs. 5. History of prostate cancer, with subsequent suprapubic catheter. As noted above, Urology will be consulted. Further recommendations per patient clinical course. Dictated by BAYRON Downs for Noe Stanford MD Seen,examined and discussed case with [employer]LECT[employer] LINEWORKER. cc: BAYRON Downs MD Bhavna Gowda, MD William Hughes MTDD
[2016-09-17 06:02] VITALS: BP 156/68
--- NOTE | 2016-09-17 06:24 | EKG Report ---
Test Performed on : 09/16/2016 3:36:12 PM Test Reason : Poss Anemia Blood Pressure : / mmHG Vent. Rate : 063 BPM Atrial Rate : 063 BPM P-R Int : 186 ms QRS Dur : 136 ms QT Int : 448 ms P-R-T Axes : 015 -21 070 degrees QTc Int : 458 ms Normal sinus rhythm. Left bundle branch block Abnormal ECG When compared with ECG of 02-SEP-2016 10:21, No significant change was found Unconfirmed Result
[2016-09-17] MEDS ORDERED: ROCEPHIN 1 GM/NS 1 GM/50 ML IVPB IV SCH (08:00)
[2016-09-17] MEDS ORDERED: METAMUCIL POWDER PACKET PO SCH (09:00)
[2016-09-17] MEDS ORDERED: PROTONIX PO SCH (09:00)
[2016-09-17] MEDS ORDERED: ELMIRON PO SCH (09:00)
[2016-09-17] MEDS ORDERED: PREMARIN PO SCH (09:00)
[2016-09-17] MEDS ORDERED: ICAR-C PO SCH (09:00)
[2016-09-17] MEDS ORDERED: CENTRUM SILVER PO SCH (09:00)
[2016-09-17] MEDS ORDERED: CELEXA PO SCH (09:00)
[2016-09-17 10:04] LABS: MANUAL DIFF NEEDED? NO
[2016-09-17 10:29] LABS: BASO% 0.8 % (0.0-0.8); EOS# 0.27 X1000 (0.0-0.7); EOS% 4.3 % (0.0-10.0); HEMATOCRIT 28.4 % (42.0-52.0); HEMOGLOBIN 9.4 g/dL (14.0-18.0); IMM GRAN# 0.02 X1000 (0.0-0.04); IMM GRAN% 0.3 % (0.0-0.5); LYMPH# 0.97 X1000 (1.2-3.4); LYMPH% 15.3 % (20.5-51.1); MCH 29.4 PG (27-31); MCHC 33.1 g/dL (33-37); MCV 88.8 FL (81-99); MONO# 0.56 X1000 (0.11-0.59); MONO% 8.8 % (1.7-9.3); MPV 8.6 FL (7.4-10.4); NEUT% 70.5 % (42.2-75.2); PLT 403 X1000 (130-400)
[2016-09-17 10:45] LABS: POTASSIUM 4.5 mmol/L (3.5-5.1)
--- NOTE | 2016-09-17 17:59 | DISCHARGE SUMMARY ---
ADMISSION DATE: 09/16/2016 DISCHARGE DATE: 09/17/2016 ADMISSION DIAGNOSES: 1. Gross hematuria secondary to hemorrhagic cystitis. 2. Acute on chronic blood loss anemia. 3. Chronic kidney disease stage 3, stable. 4. Hypovolemic hyponatremia, mild. 5. History of prostate cancer. 6. 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 DISCHARGE DIAGNOSES: 1. Gross hematuria secondary to hemorrhagic cystitis. Will be following up with Dr. Guthrie as outpatient and going to [facility] for a cystectomy as outpatient. 2. Acute on chronic blood loss anemia. Received 2 units packed red blood cells here. 3. Chronic kidney disease stage 3, stable. 4. Mild hypovolemic hyponatremic state. Received IV fluid hydration. 5. History of prostate cancer, suprapubic catheter. 6. Urinary tract infection with chronic cystitis secondary to suprapubic catheter. We will go home with Levaquin. CONSULTATIONS: Dr. Guthrie. PROCEDURES: None. HOSPITAL COURSE: Mr. Ildefonso Obrine is an 85-year-old male who is well known to our service, came to the ER with complaints of chronic blood loss through urine. Apparently he went to his primary care provider Dr. Liu, who stated that he had a low hemoglobin and hematocrit. He had other associated symptoms such as some mild fatigue, dizziness, and weakness. He was found to have a hemoglobin and hematocrit of 7 and 21.3, along with having hematuria through the suprapubic catheter. Urinalysis with culture sent was found to have gram-negative rods in the urine with frequent history of Pseudomonas. So, he will go home with Levaquin 750 p.o. daily x5 days. He is afebrile. White count is normal. Vital signs are stable for discharge home. DISCHARGE VITAL SIGNS: Temperature 97.5 degrees, heart rate 58, respiratory rate 16, blood pressure 156/68, saturation 99% on room air. LABORATORY: Repeat CBC is currently pending. Admission CBC: White blood cells 7, hemoglobin 7, hematocrit 21.3, platelet count 406,000. INR 1.03. Sodium 133, potassium 4.7, BUN 21, creatinine is 1.7, glucose 84, bilirubin 0.14, AST 13, ALT 7, albumin 3.4. Urinalysis on admit showed 200 protein, large blood, large leukocytes, too numerous to count white blood cells and red blood cells, and 1+ bacteria. IMAGING: Only had a EKG performed which showed normal sinus rhythm, rate of 63, QTc of 458. DISCHARGED DIET: Regular. DISCHARGE ACTIVITY: As tolerated. MEDICATIONS: Premarin 0.625 p.o. twice daily, Anton 10 one tablet p.o. q.4 hours p.r.n., Icar C 1 tablet p.o. twice daily, Levaquin 750 mg p.o. daily, Centrum Silver 1 tablet p.o. daily, Protonix 40 mg p.o. daily, Elmiron 100 mg p.o. 3 times daily, Metamucil once p.o. daily, Carafate 1 g p.o. 4 times daily. DISCHARGE DISPOSITION: Will be home. DISCHARGE INSTRUCTIONS: Routine suprapubic catheter care. If symptoms return, to seek medical advice. Will need to follow up with [facility] appointment for total cystectomy. Will need to follow up with Dr. Guthrie as scheduled. Dictated by BAYRON Blue for Nilo Easton MD cc: BAYRON Blue MD Bhavna Gowda, MD Dr. Hughes
== END 2016-09-17 12:00 | disposition home or self-care (01) ==
LOC: ED 15:26 → SUATTDRO 22:38 → EDIPHOLD 22:38 → 3N 23:48
PROVIDERS: ATTEND Internal Medicine

== ENCOUNTER 2019-02-23 15:46 | Inpatient (IN) ==
[2019-02-23] MEDS: SEPTRA DS PO ONE ×3 (16:24→19:57)
[2019-02-23] MEDS ORDERED: ZOFRAN IV ONE (17:08)
[2019-02-23 18:19] LABS: BASO# 0.02 X1000 (0.0-0.2); BASO% 0.3 % (0.0-0.8); EOS# 0.01 X1000 (0.0-0.7); EOS% 0.1 % (0.0-10.0); HEMATOCRIT 17.5 % (42.0-52.0); HEMOGLOBIN 5.8 g/dL (14.0-18.0); IMM GRAN# 0.03 X1000 (0.0-0.04); IMM GRAN% 0.4 % (0.0-0.5); LYMPH# 0.84 X1000 (1.2-3.4); LYMPH% 12.2 % (20.5-51.1); MCH 31.9 PG (27-31); MCHC 33.1 g/dL (33-37); MCV 96.2 FL (81-99); MONO# 0.48 X1000 (0.11-0.59); MPV 9.2 FL (7.4-10.4); NEUT# 5.49 X1000 (1.4-6.5); PLT 240 X1000 (130-400); RBC 1.82 XMIL (4.7-6.1); WBC 6.87 X1000 (4.8-10.8)
[2019-02-23 19:13] LABS: URINE SOURCE CATH
[2019-02-23 19:30] LABS: BILIRUBIN URINE NEGATIVE (NEGATIVE); BLOOD URINE LARGE (NEGATIVE); COLOR RED; GLUCOSE URINE NEGATIVE (NEGATIVE); KETONE URINE NEGATIVE (NEGATIVE); LEUKOCYTES URINE SMALL (NEGATIVE); NITRITE URINE NEGATIVE (NEGATIVE); PH URINE 7.5; PROTEIN URINE 200 mg/dL (NEGATIVE); SP GRAVITY URINE 1.007; TURBIDITY URINE TURBID (CLEAR); UROBILINOGEN URINE NORMAL (NORMAL)
[2019-02-23 19:39] LABS: URINE RBC TNTC /HPF (<10); URINE WBC TNTC /HPF (<10)
--- NOTE | 2019-02-23 19:58 | PROVIDER DOCUMENTATION ---
This chart was entered by Beryl Hernandez Scribe, acting as scribe for John Fallon MD. HPI-General Adult - General Stated Complaint: UTI Time Seen by Provider: 02/23/19 16:18 Source: patient Allergies/Adverse Reactions: Patient Allergies Allergy/AdvReac Type Severity Reaction Status Date / Time No Known Allergies Allergy Verified 02/15/19 15:21 Home Medications: Home Medication List Medication Instructions Recorded Confirmed Last Taken Type Sulfamethoxazole/Trimethoprim 1 ea PO BID #10 tab 02/15/19 Unknown Rx [Bactrim Ds Tablet] - History of Present Illness -Gen Adult Nature of Presenting Problems: pt is a 88 yr old male presenting via EMS with 8day complaint of blood in urine. pt seen x2 for same, is currently on Bactrim x8days for UTI. pt hx of frequent UTIs. pt has chronic suprapubic catheter due to prostate CA, he self replaces catheter every 4 weeks, last replaced 2 weeks ago. pt followed by Dr Guthrie. last ER visit 02/19 catheter irrigated at that time. after being placed in room pt experienced a near syncopal episode. pt denies any fever/chills, no abdominal pain or other complaints. Location of Pain/Injury: reports: none Pain Radiation: reports: no radiation Quality of Pain: reports: none Onset/Duration: reports: other (8 days) Timing: reports: still present Context/Activities at Onset: reports: rest Modifying Factors: improves with: other medication (Bactrim without change), other (bladder irrigation without change) Associated Symptoms: reports: genitourinary problems. denies: back/neck pain, dizziness, fever/chills, nausea, vomiting Similar Symptoms Previously?: Yes Recently seen or treated by another doctor?: Yes Review of Systems - Adult - REVIEW OF SYSTEMS - ADULT Constitutional: denies: chills, fever Eyes: reports: no symptoms reported Ears, Nose, Mouth & Throat: reports: no symptoms reported Cardiovascular: reports: no symptoms reported Respiratory: reports: no symptoms reported Gastrointestinal: denies: abdominal pain, diarrhea, nausea, vomiting Genitourinary: reports: frequent UTI's, hematuria. denies: flank pain Musculoskeletal: denies: back pain Integumentary: reports: no symptoms reported Neurological: reports: syncope (near syncope). denies: dizziness/vertigo, headache/migraines Psychiatric: reports: no symptoms reported Endocrine: reports: no symptoms reported Hematologic/Lymphatic: reports: no symptoms reported Allergic/Immunologic: reports: no symptoms reported All Other Systems: Reviewed and Negative Past History - Adult - PAST MEDICAL HISTORY-ADULT Review of Records: reports: Old Records Reviewed, Nursing Assessment Review, Medications Reviewed, Social history reviewed & non-contributory. Major Childhood Illnesses: reports: denies history Cardiovascular: reports: HTN Respiratory: reports: denies history Gastrointestinal: reports: GI bleed, ulcer Obstetrical/Gynecological: reports: denies history Genitourinary: reports: kidney disease, prostate cancer, other (suprapubic catheter) Musculoskeletal: reports: denies history Neurological: reports: denies history Endocrine/Immune: reports: denies history Other Conditions: reports: denies history - PRIOR SURGERIES/PROCEDURES Surgical/Procedure History: reports: reviewed, not pertinent - IMMUNIZATION STATUS Childhood Immunizations: See Nurse Assessment Flu Vaccine: See Nurse Assessment - FAMILY HISTORY Family History: reviewed, not pertinent - SOCIAL HISTORY Smoking: quit greater than 1 year Substance Use: alcohol Alcohol Use Frequency: occasionally Living Situation: family Physical Exam-General - PHYSICAL EXAM-ADULT Initial Vital Signs Reviewed: Yes - CONSTITUTIONAL General Appearance: alert, no apparent distress - EYES Eyes: PERRL/EOMI - HEAD, EARS, NOSE, MOUTH & THROAT HENMT: normocephalic/atraumatic, moist mucous membranes - NECK Neck: non-tender, full range of motion, supple, normal inspection - RESPIRATORY Respiratory: chest non-tender, lungs clear, normal breath sounds - CARDIOVASCULAR Cardiovascular: normal peripheral pulses, regular rate, rhythm - GASTROINTESTINAL (ABDOMEN) Abdominal Exam: normal bowel sounds, non tender, soft - GENITOURINARY Male Genitalia: other (suprapubic cathether in place without redness or drainage, lucho blood noted draining) - MUSCULOSKELETAL Back Exam: normal inspection Extremity: normal range of motion, non-tender, normal gait, normal inspection - SKIN Integumentary: normal turgor, warm/dry, pallor - PSYCHIATRIC Psych/Mental Status: normal mood/affect Progress - PLAN OF CARE/RESULTS Progress/Plan/Lab Results: Orders Category Date Time Status CBC WITH ELECTRONIC DIFF [HEME] Stat Lab 02/23/19 18:02 Ordered PROTIME WITH INR [COAG] Stat Lab 02/23/19 18:02 Ordered PTT [COAG] Stat Lab 02/23/19 18:02 Ordered TROPONIN T Stat Lab 02/23/19 18:02 Ordered TYPE & SCREEN [BBK] Stat Lab 02/23/19 18:02 Ordered URINALYSIS W/POSS RFLX CULT [URINALYSIS] Stat Lab 02/23/19 16:22 Uncollected Ondansetron [Zofran] Med 02/23/19 17:08 Discontinued 4 mg IV NOW ONE Sulfamethoxazole/Tmp D.s. [Septra Ds] Med 02/23/19 16:24 Discontinued 1 each PO NOW ONE EKG [EKG] Stat Ther 02/23/19 17:[address] Carter hospitalist for symptomatic anemia. He requires 2 units PRBCs for anemia and has received antibiotics for possible UTI. Urology consulted with Dr. Sylevster and she agreed with continuous bladder irrigation. He does have a suprapubic catheter in place due to history of TURP and is overseen by Dr. Guthrie with urology. Result Diagrams: 02/23/19 17:54 Departure - Departure Date of Disposition Decision: 02/23/19 Time of Disposition Decision: 19:55 DIAGNOSIS: Symptomatic anemia, Hematuria, Suprapubic catheter, S/P TURP, UTI (urinary tract infection) Disposition: ADMITTED INPATIENT 09 Certified Medical Emergency: Emergent Condition: Fair Referrals and Follow-Ups: Kathi Liu MD [Primary Care Provider] - - Critical Care Note This patient required my direct & personal management of CC.: No Attestation - Physician/ VALEREI Attestation Patient care was provided by Advanced Practice Provider:: No The physician spent face to face time with patient:: Yes Advanced Practice Provider documentation review:: Supervising physician onsite and consulted in the evaluation and care of this patient. The physician did have a face to face encounter with the patient. This chart was documented by the indicated scribe, (Beryl Hernandez Scribe) and accurately reflects the services I performed and decisions made by me, John Weston MD, as attested by the provider's signature.
[2019-02-23] MEDS ORDERED: NS 500 ML ONE (20:40)
[2019-02-23 20:47] LABS: PROTIME 14.7 Seconds (11.0-16.0)
[2019-02-23 20:48] LABS: INR 1.14
[2019-02-23] MEDS ORDERED: MORPHINE IV ONE (23:08)
[2019-02-24] MEDS ORDERED: ZOFRAN IV PRN (01:57)
[2019-02-24] MEDS ORDERED: MORPHINE IV PRN (01:57)
[2019-02-24] MEDS: NS 1,000 ML IV SCH ×2 (02:39→15:08)
--- NOTE | 2019-02-24 06:51 | HISTORY AND PHYSICAL ---
PRIMARY CARE PHYSICIAN: Dr. Liu. CHIEF COMPLAINT: Blood in urine. HISTORY OF PRESENTING ILLNESS: An 88-year-old male with a history of prostate cancer, chronic kidney disease, GERD, peptic ulcer disease, who presented to the emergency department with recurrent hematuria. Apparently, he noticed a large amount of blood in his bag from his suprapubic catheter. He apparently had come to the ER several times for similar symptoms. He was seen in the ED. He also had laboratories drawn that did show that he was also was profoundly anemic. Due to his presenting symptoms, he will require admission for further management. At the time of my examination, the patient denied any headache, fever, chills, chest pain, shortness of breath, or any weight changes, but complained of blood in the urine. PAST MEDICAL HISTORY: Prostate cancer, chronic kidney disease, GERD, peptic ulcer disease. PAST SURGICAL HISTORY: Vocal cord surgery, TURP, suprapubic catheter. ALLERGIES: No known drug allergies. CURRENT MEDICATIONS: He does not recall, and nursing staff will reconcile. SOCIAL HISTORY: No history of smoking. Admits to social alcohol use. Denies any illicit drug use. FAMILY HISTORY: Positive for coronary disease in father. REVIEW OF SYSTEMS: A 14-point review of system is as in HPI, other systems negative. PHYSICAL EXAMINATION: GENERAL: Cooperative, friendly male. He is resting more comfortably now. VITAL SIGNS: Temperature 97.7 degrees, pulse 86, respirations 20, blood pressure 162/84. HEENT: Atraumatic, normocephalic. Extraocular movements intact. PERRLA. He has pale conjunctiva. NECK: No masses. CHEST: Clear to auscultation. CARDIOVASCULAR: Regular rate and rhythm. ABDOMEN: Soft. Positive bowel sounds. EXTREMITIES: No edema. NEUROLOGIC: He is awake, alert, oriented x3. GENITOURINARY: No bladder distention. SKIN: Warm. LABORATORY DATA: WBC 6.87, hemoglobin 5.8, hematocrit 17.5, platelets 240,000. Troponin 0.11. UA shows large blood. ASSESSMENT: This is an 88-year-old male with a history of prostate cancer, chronic kidney disease, gastroesophageal reflux disease, peptic ulcer disease, who had presented to the emergency department with a several-day history of having gross hematuria. He was evaluated in the emergency department. He was also found to be profoundly anemic. Subsequently, he will require admission for further management. 1. Gross hematuria. 2. Anemia, blood loss. 3. Gastroesophageal reflux disease. PLAN: 1. Will admit the patient to medical floor with telemetry. 2. Will continue with bladder irrigation. 3. Consult Urology. 4. Will start blood transfusion, and monitor hemoglobin and hematocrit. 5. Continue the patient on PPI. 6. Will put the patient on DVT prophylaxis with SCDs. 7. Will continue to follow, reassess, and make further recommendations based on the patient's clinical course. cc: Saeed Carter MD
[2019-02-24 07:56] LABS: BASO# 0.02 X1000 (0.0-0.2); BASO% 0.2 % (0.0-0.8); EOS# 0.06 X1000 (0.0-0.7); EOS% 0.6 % (0.0-10.0); HEMATOCRIT 25.1 % (42.0-52.0); HEMOGLOBIN 8.4 g/dL (14.0-18.0); IMM GRAN# 0.03 X1000 (0.0-0.04); IMM GRAN% 0.3 % (0.0-0.5); LYMPH% 9.7 % (20.5-51.1); MCH 30.7 PG (27-31); MCHC 33.5 g/dL (33-37); MCV 91.6 FL (81-99); MONO% 10.8 % (1.7-9.3); MPV 9.4 FL (7.4-10.4); NEUT# 7.28 X1000 (1.4-6.5); NEUT% 78.4 % (42.2-75.2); PLT 255 X1000 (130-400); RBC 2.74 XMIL (4.7-6.1); RDW 14.6 % (11.5-14.5); WBC 9.29 X1000 (4.8-10.8)
[2019-02-24 08:13] LABS: CALCIUM 8.4 mg/dL (8.8-10.2); CREATININE 3.1 mg/dL (0.7-1.2); POTASSIUM 5.4 mmol/L (3.5-5.1)
[2019-02-24] MEDS ORDERED: DIPRIVAN 1% ONE (11:46)
[2019-02-24] MEDS ORDERED: XYLOCAINE-MPF 2% ONE (11:46)
[2019-02-24] MEDS ORDERED: ZOFRAN ONE (11:59)
[2019-02-24] MEDS ORDERED: KAYEXALATE PO ONE (12:09)
[2019-02-24] MEDS ORDERED: KEFZOL 1 GM/D5W 2 GM/100 ML IVPB ONE (12:34)
--- NOTE | 2019-02-24 15:57 | PROGRESS NOTE ---
DATE: 02/24/2019 SUBJECTIVE: The patient reports feeling fine. Still having some hematuria. No other complaints noted. OBJECTIVE: Vital Signs: Temperature 97.4 degrees, heart rate 73, respiratory rate 18, blood pressure 151/64, O2 saturation 99% on room air. General Examination: This is a chronically ill- appearing, 88-year-old male, lying in bed, in no acute distress. Cardiovascular: S1, S2 heard. No murmurs, gallops, or rubs. Regular rate and rhythm. Respiratory: Clear bilaterally to auscultation. No work of breathing or using accessory muscles. Abdomen: Soft. Nontender to palpation. Bowel sounds present. No organomegaly. Mild suprapubic tenderness noted. Extremities: No clubbing, cyanosis, or edema. Peripheral pulses present in both legs. Neurological: Patient is alert and oriented x3. Moves 4 extremities. LABORATORY DATA: Hemoglobin is 8.4. Creatinine is 2.1, potassium is 5.4. ASSESSMENT: 1. Gross hematuria. 2. Anemia of blood loss. 3. Gastroesophageal reflux disease. PLAN: Patient has been transfused so far 2 units of blood. Hemoglobin is much better, it is 8.4. Awaiting Urology consultation for this patient. He remains n.p.o. today. The patient has acute on chronic kidney disease. Creatinine baseline is 2.0; today it is 2.1. We will continue to monitor BMP daily. For gastroesophageal reflux disease, we will continue with Protonix. DISPOSITION: Following the lead from Urology. cc: Javi Thurston MD
[2019-02-25] MEDS: TYLENOL PO PRN (05:44)
[2019-02-25 08:09] LABS: BASO# 0.03 X1000 (0.0-0.2); BASO% 0.5 % (0.0-0.8); EOS% 3.2 % (0.0-10.0); HEMATOCRIT 21.1 % (42.0-52.0); HEMOGLOBIN 6.8 g/dL (14.0-18.0); IMM GRAN# 0.02 X1000 (0.0-0.04); IMM GRAN% 0.3 % (0.0-0.5); LYMPH# 1.12 X1000 (1.2-3.4); LYMPH% 17.9 % (20.5-51.1); MCH 30.2 PG (27-31); MCHC 32.2 g/dL (33-37); MCV 93.8 FL (81-99); MONO# 0.61 X1000 (0.11-0.59); MONO% 9.7 % (1.7-9.3); MPV 9.4 FL (7.4-10.4); NEUT# 4.29 X1000 (1.4-6.5); NEUT% 68.4 % (42.2-75.2); PLT 230 X1000 (130-400); RBC 2.25 XMIL (4.7-6.1); RDW 14.9 % (11.5-14.5); WBC 6.27 X1000 (4.8-10.8)
[2019-02-25 08:28] LABS: CALCIUM 7.9 mg/dL (8.8-10.2); CREATININE 2.6 mg/dL (0.7-1.2); POTASSIUM 4.8 mmol/L (3.5-5.1)
--- NOTE | 2019-02-25 11:34 | Diag Imaging Result Doc PS360 ---
EXAM: US RENAL 2 (RETROPER) COMPLETE 02/25/2019 HISTORY: renal insufficiency TECHNIQUE: Renal ultrasound COMMENT: The right kidney is 12.3 x 6 x 6.5 cm the left is 13.3 x 7 x 7 cm. There is a suprapubic catheter in the bladder. There are bilateral cortical cysts with a fairly large cyst in the upper pole of the left kidney measuring 4.4 cm and a exophytic cyst arising from the lower pole of the right kidney measuring 3 cm in diameter. No definite solid lesions are present and there is no evidence of hydronephrosis. IMPRESSION: No evidence of obstructive uropathy. Multiple renal cysts which may be related to acquired polycystic disease. Electronically signed by Hesham Mora 02/25/2019 11:32 AM
[2019-02-25] MEDS ORDERED: NS 500 ML IV ONE (12:01)
--- NOTE | 2019-02-25 17:52 | PROGRESS NOTE ---
DATE: 02/25/2019 SUBJECTIVE: The patient reports feeling fine. He continues to have marked hematuria. OBJECTIVE: Vital Signs: Temperature 98.1 degrees, heart rate 76, respiratory rate 16, blood pressure 154/67, O2 saturation 96% on room air. General Examination: This is a chronically ill appearing, 88-year-old, male, lying in bed, in no acute distress. Cardiovascular: S1, S2 heard. No murmurs, gallops, or rubs. Regular rate and rhythm. Respiratory: Clear bilaterally to auscultation. No work of breathing or using accessory muscles. Abdomen: Soft, nontender to palpation. Bowel sounds present. No organomegaly. Extremities: No clubbing, cyanosis, or edema. Peripheral pulses present in both legs. Genitourinary: Patient has a Elias catheter connected to continuous irrigation with still marked hematuria noted. Neurological: Patient is alert and oriented x3. Moves all 4 extremities. LABORATORY DATA: Hemoglobin is 6.8 from 8.4 yesterday, with BMP that reveals creatinine 2.6 with sodium 132. ASSESSMENT/PLAN: 1. Gross hematuria. 2. Anemia of blood loss. 3. Gastroesophageal reflux disease. 4. Patient has been transfused 2 units of blood. The hemoglobin has been 5.4. Today, the patient's hemoglobin is 6.5, so we are going to transfuse 2 units of blood. We will wait for results of cystoscopy performed by Dr. Guthrie and we will go from there. We will continue to monitor this patient closely. 5. Disposition. Following lead from Urology. cc: Javi Thurston MD MTDD
[2019-02-25] MEDS: PREMARIN PO SCH (20:54)
[2019-02-25] MEDS: ELMIRON PO SCH (20:55)
--- NOTE | 2019-02-25 21:53 | OPERATIVE NOTE ---
PROCEDURE DATE: 02/24/2019 SURGEON: Dr. Bruce Guthrie. PREOPERATIVE DIAGNOSIS: History of prostate cancer, status post radiation therapy, with clot retention and acute blood loss anemia. POSTOPERATIVE DIAGNOSIS: History of prostate cancer, status post radiation therapy, with clot retention and acute blood loss anemia, with complete obstruction of the prostatic urethra. PROCEDURE PERFORMED: 1. Cystoscopic exam with attempt at direct visual internal urethrotomy. 2. Cystoscopic exam through the suprapubic tube tract. 3. Clot irrigation with fulguration of bleeding areas. ANESTHESIA: General via laryngeal mask. FINDINGS: Cystoscopic exam through the urethra reveals a normal anterior urethra. The scope was able to be passed through the sphincter, but immediately hit scar tissue that was very dense. Attempts were made to do a direct visual internal urethrotomy without success. Cystoscopic exam through the suprapubic tube revealed a large amount of clot in the bladder. After this was irrigated out through the cystoscope sheath, the ureteral orifices were normal. There were bleeding areas from the upper part of the trigone, and these areas were cauterized. INDICATIONS FOR PROCEDURE: This 88-year-old male has a history of prostate cancer. He is status post radiation therapy. He has had several episodes of gross hematuria that has required clot irrigation in the past, the last time about 2 years ago. He recently again developed intermittent gross hematuria and then clots. His hemoglobin in the emergency room was 5. He has been transfused 2 units. DESCRIPTION OF PROCEDURE: After informed consent was obtained from the patient and him receiving IV antibiotics, he was taken to the main OR cystoscopy room and placed in a supine position. General anesthesia via laryngeal mask was achieved. He was then placed in the low lithotomy position and prepped and draped in the usual sterile fashion for cystoscopic exam. A 21[place] sheath cystoscope was passed through the patient's urethra and into the anterior urethra and through the sphincter, but could not go further. A 0.035 guidewire was passed through the cystoscope, and multiple attempts were made to place the wire through suspected areas of connection and up into the bladder without success. The suprapubic tube was removed and the flexible [facility] cystoscope was passed through the suprapubic tube tract and into the bladder. There was a large amount of clot and the flexible scope was removed. A 21[place] sheath cystoscope was passed and the clots were able to be irrigated out. A large amount of clot was removed. After the clots were removed, the ureteral orifices were visualized and the bleeding areas were seen. A Bugbee electrode was placed. The irrigant was switched to sterile water and the bleeding areas were cauterized. The bladder was left distended. The cystoscope was removed. A new 20[place] Elias catheter was passed through the patient's suprapubic tube tract and into the bladder. 10 mL of sterile water was placed in Elias's balloon. Elias was placed to gravity drain. The efflux was clear. The catheter was a 20-[place] 3-way Elias catheter. Continuous bladder irrigation was started and the efflux was clear. He tolerated the procedure well. The estimated blood loss during the case was less than 5 mL. He probably had over 300 mL of clot in the bladder. He was taken to the recovery room in good condition. cc: Bruce Guthrie MD
[2019-02-26] MEDS: ELMIRON PO SCH ×3 (06:30→17:46)
[2019-02-26 07:20] LABS: BASO# 0.06 X1000 (0.0-0.2); BASO% 0.8 % (0.0-0.8); EOS# 0.48 X1000 (0.0-0.7); EOS% 6.8 % (0.0-10.0); HEMATOCRIT 26.8 % (42.0-52.0); HEMOGLOBIN 8.7 g/dL (14.0-18.0); IMM GRAN# 0.03 X1000 (0.0-0.04); IMM GRAN% 0.4 % (0.0-0.5); LYMPH# 1.22 X1000 (1.2-3.4); LYMPH% 17.3 % (20.5-51.1); MCH 29.9 PG (27-31); MCHC 32.5 g/dL (33-37); MCV 92.1 FL (81-99); MONO# 0.69 X1000 (0.11-0.59); MONO% 9.8 % (1.7-9.3); MPV 8.9 FL (7.4-10.4); NEUT# 4.58 X1000 (1.4-6.5); NEUT% 64.9 % (42.2-75.2); PLT 217 X1000 (130-400); RBC 2.91 XMIL (4.7-6.1); WBC 7.06 X1000 (4.8-10.8)
[2019-02-26 07:32] LABS: CALCIUM 8.6 mg/dL (8.8-10.2); CREATININE 2.2 mg/dL (0.7-1.2); POTASSIUM 4.5 mmol/L (3.5-5.1)
--- NOTE | 2019-02-26 07:35 | CONSULTATION ---
DATE OF CONSULTATION: 02/24/2019 ATTENDING AND REFERRING PHYSICIAN: Hospitalist. CHIEF COMPLAINT: Hematuria. HISTORY OF PRESENT ILLNESS: This 88-year-old male was diagnosed with prostate cancer in 2011. He completed radiation therapy in 2012. He was admitted with gross hematuria and acute blood-loss anemia with a hemoglobin of 5. He received 2 units of packed red blood cells. The patient has had several episodes of hemorrhagic cystitis secondary to his radiation starting about 3 years ago. He had to have alum irrigation at his last visit. He was also on Elmiron 100 mg 3 times a day and Premarin 0.625 mg twice a day. After the alum irrigation, the bleeding was controlled. He then underwent hyperbaric oxygen therapy. This seems to have controlled it until several days ago. The patient has an indwelling suprapubic tube. He also had a severe a prostatic urethral stricture. He states that despite having blood coming out around his suprapubic tube, no blood was coming through his penis. PAST MEDICAL HISTORY: Chronic renal insufficiency, hypertension, gastroesophageal reflux disease, depression and prostate cancer. PAST SURGICAL HISTORY: Transrectal prostate ultrasound and biopsies, radiation therapy for prostate cancer, vocal cord surgery, transurethral resection of the prostate, wisdom teeth extraction, direct visual internal urethrotomy with placement of suprapubic tube, cysto clot irrigation under anesthesia x3. SOCIAL HISTORY: No tobacco or alcohol use. ALLERGIES: No known drug allergies. REVIEW OF SYSTEMS: He states that before the bleeding started he was doing well. He has no problems with diabetes, heart disease, strokes, or seizures. He states that ever since the bleeding started he is very weak. PHYSICAL EXAMINATION: General: A normally developed, well-nourished, age apparent, white male, oriented in all ways and cooperative. HEENT: Normal for age. Lungs: Clear. Cardiovascular: Regular rate and rhythm. Abdomen: Protuberant soft, nontender. No hepatosplenomegaly or masses. Normal bowel sounds. Suprapubic tube in place with a clot in the tube. : Normal male, both testes are down. Scrotal exam is normal. Rectal: Deferred until surgery. Extremities: No clubbing, cyanosis, or edema. Neurologic: No focal deficits. LABORATORY EVALUATION: He has a white count of 6.27, a hemoglobin of 8.4, hematocrit of 25.1 after receiving 2 units of packed red cells. Platelets were 255,000. Serum sodium is 129, potassium 5.4, chloride 94, bicarb 20, BUN 38, creatinine 3.1. 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 PLAN: Cystoscopic exam either through the urethra or suprapubic tube with clot irrigation and cauterize any bleeding areas. The planned procedure, benefits versus risks, and possible complications, including, but not limited to continued bleeding, not being able to fulgurate the area, need for further surgery was discussed. He seems to understand and desires to proceed. cc: Bruce Guthrie MD
[2019-02-26] MEDS: PREMARIN PO SCH ×2 (08:33→20:26)
--- NOTE | 2019-02-26 20:19 | PROGRESS NOTE ---
DATE: 02/26/2019 SUBJECTIVE: Patient continues to have hematuria. Patient is on continuous bladder irrigation. OBJECTIVE: Vital Signs: Temperature 98.2 degrees, heart rate 73, respiratory 19, blood pressure 153/70, O2 saturation 98% on room air. General: This is an a chronically ill-looking, 88-year- old, male, lying in bed, in no acute distress. Cardiovascular: S1, S2 heard. No murmurs, gallops, or rubs. Regular rate and rhythm. Respiratory: Clear bilaterally to auscultation. No work of breathing or using accessory muscles. Abdomen: Soft, nontender to palpation. There is a suprapubic catheter noted that is connected to Elias and connected to continuous irrigation. Neurological: Patient is alert and oriented x3. Moves 4 extremities. LABORATORY DATA: Reviewed. Hemoglobin has increased from 6.8 to 8.7, with 2 units of blood. Renal function continues to improve, it is 2.2, yesterday was 2.6. ASSESSMENT: 1. Gross hematuria. 2. Anemia of blood loss. 3. Gastroesophageal disease. PLAN: Patient has been transfused 2 units of blood again because hemoglobin has dropped. At this point, we have transfused 2 more units of blood, total of 4. We will keep this patient in the hospital, check hemoglobin. If he is cleared by Urology and his hemoglobin is stable tomorrow, I think we can let him go. cc: Javi Thurston MD
[2019-02-27] MEDS: ELMIRON PO SCH ×3 (06:01→16:41)
[2019-02-27 07:38] LABS: BASO# 0.05 X1000 (0.0-0.2); BASO% 0.7 % (0.0-0.8); EOS# 0.51 X1000 (0.0-0.7); EOS% 6.8 % (0.0-10.0); HEMATOCRIT 26.4 % (42.0-52.0); HEMOGLOBIN 8.4 g/dL (14.0-18.0); IMM GRAN# 0.02 X1000 (0.0-0.04); IMM GRAN% 0.3 % (0.0-0.5); LYMPH# 1.07 X1000 (1.2-3.4); LYMPH% 14.3 % (20.5-51.1); MCH 29.8 PG (27-31); MCHC 31.8 g/dL (33-37); MCV 93.6 FL (81-99); MONO# 0.73 X1000 (0.11-0.59); MONO% 9.7 % (1.7-9.3); MPV 9.1 FL (7.4-10.4); NEUT# 5.12 X1000 (1.4-6.5); NEUT% 68.2 % (42.2-75.2); PLT 245 X1000 (130-400); RBC 2.82 XMIL (4.7-6.1); RDW 15.8 % (11.5-14.5)
[2019-02-27 07:45] LABS: CALCIUM 8.7 mg/dL (8.8-10.2); CREATININE 2.2 mg/dL (0.7-1.2); POTASSIUM 4.8 mmol/L (3.5-5.1)
[2019-02-27] MEDS: PREMARIN PO SCH ×2 (08:43→20:30)
--- NOTE | 2019-02-28 02:51 | PROGRESS NOTE ---
DATE: 02/27/2019 SUBJECTIVE: Patient continues to have hematuria. He is on continuous bladder irrigation. OBJECTIVE: Vital Signs: Temperature 98.1 degrees, heart rate 67, respiratory rate 17, blood pressure 143/63, O2 saturation 100% on room air. General: This is a chronically ill-looking, 88-year-old, male, lying in bed, in no acute distress. Cardiovascular: S1, S2 heard. No murmurs, gallops, or rubs. Regular rate and rhythm. Respiratory: Clear bilaterally to auscultation. No work of breathing or using accessory muscles. Abdomen: Soft, nontender to palpation. There is a suprapubic catheter noted that is connected to Elias catheter connected to continuous irrigation. Neurological: Patient alert and oriented x3. Moves 4 extremities. LABORATORY DATA: Reviewed. ASSESSMENT: 1. Gross hematuria. 2. Anemia of blood loss. 3. Gastroesophageal reflux disease. 4. History of prostate cancer. 5. Urethral stricture. PLAN: Patient continues to have bleeding. Actually, we were planning to discharge this patient today, but unfortunately when we tried to remove the bladder irrigation, it looks like that clogged up again. So, this patient will continue to receive bladder irrigation continuously for today and we will see how he does. We will talk to Dr. Guthrie to see what else we can do for this patient. In the meantime, we will keep checking CBC, check if the hemoglobin is still stable. We will continue to monitor this patient in the hospital. cc: Javi Thurston MD
[2019-02-28] MEDS: ELMIRON PO SCH ×3 (06:09→17:07)
[2019-02-28 07:50] LABS: BASO# 0.05 X1000 (0.0-0.2); BASO% 0.7 % (0.0-0.8); EOS# 0.56 X1000 (0.0-0.7); EOS% 8.1 % (0.0-10.0); HEMOGLOBIN 8.1 g/dL (14.0-18.0); IMM GRAN# 0.04 X1000 (0.0-0.04); IMM GRAN% 0.6 % (0.0-0.5); LYMPH# 1.17 X1000 (1.2-3.4); MCH 30.5 PG (27-31); MCHC 32.4 g/dL (33-37); MONO# 0.65 X1000 (0.11-0.59); MONO% 9.4 % (1.7-9.3); NEUT# 4.43 X1000 (1.4-6.5); NEUT% 64.2 % (42.2-75.2); PLT 250 X1000 (130-400); RBC 2.66 XMIL (4.7-6.1); RDW 14.9 % (11.5-14.5)
[2019-02-28 08:19] LABS: CALCIUM 8.4 mg/dL (8.8-10.2); CREATININE 1.9 mg/dL (0.7-1.2); POTASSIUM 4.8 mmol/L (3.5-5.1)
[2019-02-28] MEDS: PREMARIN PO SCH ×2 (09:31→23:56)
--- NOTE | 2019-02-28 12:46 | PROGRESS NOTE ---
DATE: 02/28/2019 SUBJECTIVE: Patient reports feeling fine but unfortunately continues to have hematuria. According to nursing staff, they report that his suprapubic catheter gets clots. OBJECTIVE: Vital Signs: Temperature 97.9 degrees, heart rate 67, respiratory rate 16, blood pressure 149/64, O2 saturation 99% on room air. General: This is a chronically ill-looking, 88- year-old, male, lying in bed, in no acute distress. Cardiovascular: S1, S2 heard. No murmurs, gallops, or rubs. Regular rate and rhythm. Respiratory: Clear bilaterally to auscultation. No work of breathing or using accessory muscles. Abdomen: Soft, nontender to palpation. There is a suprapubic catheter noted that is connected to a Elias catheter connected to continuous irrigation. Neurological: Patient is alert and oriented x3. Moves 4 extremities. LABORATORY DATA: Hemoglobin is 8.1. ASSESSMENT AND PLAN: 1. Gross hematuria. 2. Anemia of blood loss. 3. Gastroesophageal reflux disease. 4. History of prostate cancer. 5. Urethral resection. At this point, patient appears to have bleeding, not enough to affect his hemoglobin. The patient continues to form clots that obstruct his suprapubic catheter so at this point, we will continue with continuous bladder irrigation. Patient's sister is not happy with that. I will keep this patient 24 hours and if tomorrow Urology clears this patient, he can be discharged from medical standpoint if he is doing fine. cc: Javi Thurston MD
[2019-02-28] MEDS: TYLENOL PO PRN (23:59)
[2019-03-01] MEDS: ELMIRON PO SCH ×2 (06:17→13:43)
[2019-03-01 07:34] LABS: BASO# 0.06 X1000 (0.0-0.2); BASO% 0.9 % (0.0-0.8); EOS# 0.46 X1000 (0.0-0.7); HEMATOCRIT 24.5 % (42.0-52.0); HEMOGLOBIN 7.9 g/dL (14.0-18.0); IMM GRAN# 0.02 X1000 (0.0-0.04); IMM GRAN% 0.3 % (0.0-0.5); LYMPH% 21.4 % (20.5-51.1); MCH 30.6 PG (27-31); MCHC 32.2 g/dL (33-37); MONO# 0.71 X1000 (0.11-0.59); MONO% 10.8 % (1.7-9.3); MPV 9.1 FL (7.4-10.4); NEUT% 59.6 % (42.2-75.2); PLT 262 X1000 (130-400); RBC 2.58 XMIL (4.7-6.1); RDW 14.9 % (11.5-14.5); WBC 6.55 X1000 (4.8-10.8)
[2019-03-01 07:50] LABS: CALCIUM 9.2 mg/dL (8.8-10.2); CREATININE 2.2 mg/dL (0.7-1.2); POTASSIUM 5.3 mmol/L (3.5-5.1)
[2019-03-01 07:55] VITALS: BP 151/59
[2019-03-01] MEDS: PREMARIN PO SCH (10:40)
--- NOTE | 2019-03-02 10:08 | DISCHARGE SUMMARY ---
ADMISSION DATE: 02/23/2019 DISCHARGE DATE: 03/01/2019 PRIMARY CARE PROVIDER: Dr. Liu. CONSULTATIONS: Dr. Bruce Guthrie. PERTINENT PROCEDURES: 1. Renal ultrasound. No evidence of obstructive uropathy. Multiple renal cysts which may relate to acquired polycystic disease. 2. Cystoscopic exam with attempt to directly visualize internal urethrotomy cystoscopic exam through the suprapubic tube tract, clot irrigation, and fulguration of bleeding areas by Dr. Bruce Guthrie. DISCHARGE DIAGNOSES: 1. Gross hematuria. 2. Anemia of blood loss. 3. Gastroesophageal reflux disease. 4. History of prostate cancer. 5. Urethral resection. HOSPITAL COURSE: Briefly, Mr. Obrien is an 88-year-old male with a history of prostate cancer, chronic kidney disease, GERD, and peptic ulcer disease, who presented to the ED with recurrent hematuria. He was noticing a large amount of blood in his bag from his suprapubic catheter. He had come to the ED several times for similar symptoms. In the ED, he was found to be profoundly anemic, and was admitted to the hospital for further evaluation and treatment. He was placed on continuous bladder irrigation with a urology consult, and transfused with 4 units of PRBC's. He underwent a urethral resection with Dr. Guthrie. However, unfortunately, he continued to have hematuria as well as clots in his suprapubic catheter. Therefore, he continued on continuous bladder irrigation. His hemoglobin and hematocrit is stable. He is hemodynamically stable, and he will be discharged home today to follow up with Dr. Guthrie. VITAL SIGNS: At time of discharge, temperature 97.8 degrees, heart rate 72, respirations 18, blood pressure 151/59, and O2 is 100% on room air. DISCHARGE DIET: Regular. DISCHARGE MEDICATIONS: Icar C1 tab p.o. daily. FOLLOWUP: Mr. Obrien is being discharged home. He is to follow up with Dr. Bruce Guthrie. He can return to the ED or call 911 for any worsening of symptoms. Dictated by BAYRON Espino for Javi Thurston MD Addendum: Patient seen and examined by myself. Agree with BAYRON note. It reflects my assessment and plan. Patient is being discharged from hospital in stable condition. Will be seen by Urologist in a week. cc: MD Bruce Luu MD Bhavna Alexa, MD MTDD
== END 2019-03-01 14:53 | disposition home or self-care (01) | DRG 663 ==
LOC: SUPCPDRO → ED 15:46 → SUATTDRO 02-24 01:03 → 3N 02-24 01:03
PROVIDERS: ATTEND Internal Medicine

== ENCOUNTER 2019-03-05 14:35 | Inpatient (IN) ==
--- NOTE | 2019-03-05 17:00 | PROVIDER DOCUMENTATION ---
HPI-General Adult - General Chief Complaint: Abnormal Lab[s] Stated Complaint: DR. LIU REFERRED Time Seen by Provider: 03/05/19 16:48 Source: patient Allergies/Adverse Reactions: Patient Allergies Allergy/AdvReac Type Severity Reaction Status Date / Time No Known Allergies Allergy Verified 02/15/19 15:21 Home Medications: Home Medication List Medication Instructions Recorded Confirmed Last Taken Type Iron Carbonyl/Ascorbic Acid 1 tab PO DAILY #90 tab 02/27/19 Unknown Rx [Icar-C] - History of Present Illness -Gen Adult Nature of Presenting Problems: 88yo male presents with concern that for abnormal labs. The patient reports that he was sent by his PCP due to have low blood count. The patient reports that he has prostate cancer and has been losing blood through his sarmiento. The patient reports that he has noted the blood for the last few days. The patient reports that he has also been having dark stools. The patient denies any current pain or dizziness or shortness of breath. Location of Pain/Injury: reports: none Pain Radiation: reports: no radiation Quality of Pain: reports: none Onset/Duration: reports: 2 days ago Timing: reports: still present Associated Symptoms: reports: other (dark stools) Review of Systems - Adult - REVIEW OF SYSTEMS - ADULT Constitutional: reports: no symptoms reported Eyes: reports: no symptoms reported. denies: eye pain Ears, Nose, Mouth & Throat: reports: no symptoms reported. denies: throat pain Cardiovascular: reports: no symptoms reported. denies: chest pain Respiratory: reports: no symptoms reported. denies: shortness of breath Gastrointestinal: reports: other (dark stools). denies: abdominal pain Genitourinary: reports: hematuria Musculoskeletal: reports: no symptoms reported. denies: back pain Integumentary: reports: no symptoms reported Neurological: reports: no symptoms reported. denies: dizziness/vertigo Psychiatric: reports: no symptoms reported Endocrine: reports: no symptoms reported Hematologic/Lymphatic: reports: low blood count Allergic/Immunologic: reports: no symptoms reported Past History - Adult - PAST MEDICAL HISTORY-ADULT Review of Records: reports: Old Records Reviewed Major Childhood Illnesses: reports: denies history Cardiovascular: reports: HTN Respiratory: reports: denies history Gastrointestinal: reports: GI bleed, ulcer Obstetrical/Gynecological: reports: denies history Genitourinary: reports: kidney disease, prostate cancer, other (suprapubic catheter) Musculoskeletal: reports: denies history Neurological: reports: denies history Endocrine/Immune: reports: denies history Other Conditions: reports: denies history - PRIOR SURGERIES/PROCEDURES Surgical/Procedure History: reports: other (prostate cancer surgery) - IMMUNIZATION STATUS Childhood Immunizations: See Nurse Assessment Flu Vaccine: See Nurse Assessment - FAMILY HISTORY Family History: reviewed, not pertinent - SOCIAL HISTORY Smoking: denies Substance Use: none/never Alcohol Use Frequency: occasionally Physical Exam-General - PHYSICAL EXAM-ADULT Initial Vital Signs Reviewed: Yes - CONSTITUTIONAL General Appearance: appears well, alert, no apparent distress - EYES Eyes: pale conjunctivae. negative: conjuctival exudate, photophobia, sclera injected, scleral icterus - HEAD, EARS, NOSE, MOUTH & THROAT HENMT: normocephalic/atraumatic, moist mucous membranes, pharynx normal - RESPIRATORY Respiratory: normal breath sounds, no respiratory distress - CARDIOVASCULAR Cardiovascular: regular rate, rhythm, systolic murmur - GASTROINTESTINAL (ABDOMEN) Abdominal Exam: non tender, soft - GENITOURINARY Rectal Exam: blood streaked stool. negative: hemorrhoids - MUSCULOSKELETAL Extremity: other (palmar palor, normal ROM of upper extremities) - SKIN Integumentary: other (pale) - NEUROLOGIC Neurologic: grossly normal - PSYCHIATRIC Psych/Mental Status: normal mood/affect, normal thought content, normal thought process Progress - PLAN OF CARE/RESULTS Progress/Plan/Lab Results: Vital Signs - 8 hr 03/05/19 14:40 Temperature 97.4 F L Pulse Rate 92 H Respiratory Rate 16 Blood Pressure 148/64 O2 Sat by Pulse Oximetry 97 Result Diagrams: 03/05/19 18:21 03/05/19 18:21 - REASSESSMENT Reassessment #1 Status: other (Patient noted to be anemic at 5.8. Will transfuse 2 units. Discussed case with the hospitalist team who has accepted the patient.) Departure - Departure Date of Disposition Decision: 03/05/19 Time of Disposition Decision: 20:26 DIAGNOSIS: Anemia Qualifiers: Anemia type: other cause Other causes of anemia: other cause, not classified Qualified Code(s): D64.89 - Other specified anemias Disposition: ADMITTED INPATIENT 09 Certified Medical Emergency: Emergent Condition: Fair Referrals and Follow-Ups: Kathi Liu MD [Primary Care Provider] - - Critical Care Note This patient required my direct & personal management of CC.: No Attestation - Physician/ VALERIE Attestation Patient care was provided by Advanced Practice Provider:: No The physician spent face to face time with patient:: Yes Advanced Practice Provider documentation review:: Supervising physician onsite and consulted in the evaluation and care of this patient. The physician did have a face to face encounter with the patient.
[2019-03-05 18:41] LABS: HEMATOCRIT 18.3 % (42.0-52.0); MCH 30.5 PG (27-31); MCHC 31.7 g/dL (33-37); MCV 96.3 FL (81-99); PLT 320 X1000 (130-400); RDW 14.9 % (11.5-14.5)
[2019-03-05 18:42] LABS: BASO# 0.02 X1000 (0.0-0.2); BASO% 0.4 % (0.0-0.8); EOS# 0.22 X1000 (0.0-0.7); EOS% 4.1 % (0.0-10.0); LYMPH% 18.5 % (20.5-51.1); MONO# 0.54 X1000 (0.11-0.59); MPV 9.1 FL (7.4-10.4); NEUT# 3.63 X1000 (1.4-6.5); WBC 5.41 X1000 (4.8-10.8)
[2019-03-05 18:44] LABS: HEMOGLOBIN 5.8 g/dL (14.0-18.0)
[2019-03-05 18:53] LABS: INR 1.12; PROTIME 14.5 Seconds (11.0-16.0)
[2019-03-05 18:54] LABS: PTT 29.5 Seconds (22.3-41.8)
[2019-03-05 18:56] LABS: ALB/GLOB RATIO 1.2; ALBUMIN 3.5 g/dL (3.5-5.0); CALCIUM 8.6 mg/dL (8.8-10.2); CREATININE 2.2 mg/dL (0.7-1.2); POTASSIUM 5.5 mmol/L (3.5-5.1); TOTAL BILIRUBIN 0.16 mg/dL (0.20-1.00); TOTAL PROTEIN 6.4 g/dL (6.3-8.3)
[2019-03-05] MEDS ORDERED: NS 500 ML IV ONE (18:58)
[2019-03-05] MEDS ORDERED: SODIUM CHLORIDE 0.9% INJ ONE (20:21)
[2019-03-05] MEDS ORDERED: PROTONIX IV ONE (20:21)
[2019-03-05] MEDS ORDERED: LASIX IV ONE (20:37)
--- NOTE | 2019-03-05 21:21 | HISTORY AND PHYSICAL ---
REASON FOR ADMISSION: Generalized weakness for the last several weeks, and abnormal labs per her primary care provider. HISTORY OF PRESENT ILLNESS: Mr. Ildefonso Obrien is an 88-year-old male with past medical history of prostate cancer, status post suprapubic cystostomy; chronic kidney disease stage 4; peptic ulcer disease. He was recently discharged from our facility for anemia secondary to hemorrhagic cystitis. He had received a total of 4 units during his last stay, which was actually less than a week ago. He was then told to follow up with his primary care provider, who did routine blood work and found that his hemoglobin and hematocrit were low at 5.8 and 18. He is being admitted again to get a transfusion and probably further intervention by his urologist. The patient denies any chest pain, shortness of breath or postural lightheadedness. No bleeding from any other orifice. No recent change in his home medications. Actually, he denies any cardiorespiratory complaints and says he feels rather fine, other than the background weakness he has. REVIEW OF SYSTEMS: His other review of systems is surprisingly totally unremarkable. No palpitations. No dark stools. No nausea or vomiting. No focal weakness. No lower back pain. Otherwise, 12-system review was done. Positive findings per HPI. ALLERGIES: No known allergies. HOME MEDICATIONS: Icar-C. PAST SURGICAL HISTORY: Vocal cord surgery, TURP, suprapubic cystostomy. PAST MEDICAL HISTORY: See above. SOCIAL HISTORY: He does not smoke, drink or use illicit drugs. FAMILY HISTORY: Notable for coronary artery disease. No other family member with cancer. LABORATORY DATA: White count 5000, hemoglobin and hematocrit 6 and 18, platelet count of 320,000. Normal differential. PT, PTT essentially normal. Chemistry: Potassium 5.5, sodium 130, BUN is 42, creatinine 2.2. PHYSICAL EXAMINATION: VITAL SIGNS: Blood pressure is 148/64, heart rate 92, heart rate is 16, temperature is 97.4 degrees. He is 97% on room air. GENERAL: He is a chronically ill, pleasant man who is not in acute distress. He is alert and oriented to person and time. Normal mood and affect. HEENT: Head is normocephalic and atraumatic. Eyes: PERRL, EOMI. He is anicteric, but pale. ENT and oropharynx exam is grossly normal. No oropharyngeal exudates or erythema. No central cyanosis. NECK: Supple. No JVD or carotid bruit. No thyromegaly. CHEST: Clear when auscultated with good air entry in both lung bradley. CARDIOVASCULAR: First and second heart sounds heard. No gallops or rubs. Rhythm is regular. ABDOMEN: Slightly full, soft, nontender. No mass or organomegaly. Bowel sounds are normal. GENITOURINARY: He has a suprapubic cystostomy with normal surrounding skin. No exudation emanating from the entry point of the catheter. His urine bag, however, contains heavily bloody- stained urine. EXTREMITIES: Distal pulses slightly diminished, regular, symmetrical. No edema, clubbing or peripheral cyanosis. NEUROLOGIC: No gross focal deficits. SKIN: Intact. No breakdown, lesion or erythema, but pallid. MUSCULOSKELETAL: Exam is grossly normal. ASSESSMENT: 1. Hemorrhagic anemia. 2. Hematuria secondary to probable hemorrhagic cystitis or from underlying malignancy. 3. Hypertension. 4. Chronic kidney disease stage 4. 5. Hyperkalemia, probably related to underlying chronic kidney disease. PLAN: The patient is going to be transfused 2 units packed red cells. CBC will be repeated in the morning to determine if he needs further transfusion. As long as the patient is actively bleeding in his bag, this will be an ongoing problem. I will consult Dr. Guthrie to see if another cystoscopy can be done for further fulguration of lesions in the bladder or elsewhere. The patient was heme-positive in his stool, but this could be a false-positive from blood nearby from the tract; however, if it is real, based on his prior history of reflux disease and peptic ulcer disease we will start him on a PPI. I do not believe the GI component of this anemia is that significant to cause a drop, and more likely from the tract. We will give the patient a low dose of Lasix for kaluresis and keep the potassium down, especially since the patient will be receiving blood which could further worsen hyperkalemia. cc: MD Bruce Tapia MD Bhavna Gowda, MD
[2019-03-05 21:49] LABS: URINE SOURCE CATH
[2019-03-05] MEDS ORDERED: ZOFRAN IV PRN (22:26)
[2019-03-05] MEDS ORDERED: TYLENOL PO PRN (22:26)
[2019-03-05 22:44] LABS: BILIRUBIN URINE NEGATIVE (NEGATIVE); BLOOD URINE LARGE (NEGATIVE); COLOR BROWN; GLUCOSE URINE NEGATIVE (NEGATIVE); KETONE URINE NEGATIVE (NEGATIVE); LEUKOCYTES URINE MODERATE (NEGATIVE); NITRITE URINE NEGATIVE (NEGATIVE); PH URINE 6.5; PROTEIN URINE 200 mg/dL (NEGATIVE); SP GRAVITY URINE 1.012; TURBIDITY URINE TURBID (CLEAR); UR EPITHELIAL CELLS <10 /HPF (<10); URINE BACTERIA NEGATIVE /HPF; URINE WBC <10 /HPF (<10); UROBILINOGEN URINE NORMAL (NORMAL)
[2019-03-05 23:22] LABS: RETIC% 2.49 % (0.8-2.1); RETIC-HE 33.8 PG (28.2-36.6)
[2019-03-05] MEDS: NS 1,000 ML IV SCH (23:22)
[2019-03-05 23:37] LABS: URINE CASTS NONE SEEN; URINE CRYSTALS NONE SEEN; URINE RBC TNTC /HPF (<10); URINE SMALL ROUND CELLS NONE SEEN; URINE YEAST NONE SEEN
[2019-03-06 06:22] LABS: CALCIUM 8.4 mg/dL (8.8-10.2); CREATININE 2.3 mg/dL (0.7-1.2); MAGNESIUM 1.9 mg/dL (1.5-2.7); POTASSIUM 4.6 mmol/L (3.5-5.1)
[2019-03-06 06:34] LABS: BASO# 0.04 X1000 (0.0-0.2); BASO% 0.9 % (0.0-0.8); EOS# 0.29 X1000 (0.0-0.7); EOS% 6.4 % (0.0-10.0); HEMATOCRIT 23.7 % (42.0-52.0); HEMOGLOBIN 7.6 g/dL (14.0-18.0); LYMPH# 0.92 X1000 (1.2-3.4); LYMPH% 20.3 % (20.5-51.1); MCH 30.4 PG (27-31); MCHC 32.1 g/dL (33-37); MCV 94.8 FL (81-99); MONO# 0.62 X1000 (0.11-0.59); MONO% 13.7 % (1.7-9.3); NEUT# 2.66 X1000 (1.4-6.5); NEUT% 58.7 % (42.2-75.2); PLT 287 X1000 (130-400); RDW 14.7 % (11.5-14.5); WBC 4.53 X1000 (4.8-10.8)
[2019-03-06] MEDS: PRILOSEC PO SCH (06:43)
[2019-03-06] MEDS: ICAR-C PO SCH (08:41)
[2019-03-06] MEDS: NS 1,000 ML IV SCH (08:41)
[2019-03-06] MEDS ORDERED: DITROPAN PO ONE (09:14)
[2019-03-06] MEDS ORDERED: NS 500 ML IV ONE (13:24)
[2019-03-06] MEDS: DITROPAN PO SCH (20:27)
--- NOTE | 2019-03-06 20:43 | CONSULTATION ---
DATE OF CONSULTATION: 03/06/2019 CHIEF COMPLAINT: Hematuria with history of radiation cystitis. HISTORY OF PRESENT ILLNESS: Mr. Obrien is an 88-year-old with a history of chronic renal insufficiency, hypertension, gastroesophageal reflux disease, depression, and prostate cancer who presents for consultation regarding radiation cystitis and hematuria. 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 The patient was seen by Dr. Guthrie at that time and underwent cystoscopy and clot evacuation with fulguration of bleeding. The patient was monitored inpatient and subsequently discharged home. He had blood work drawn by his primary care physician which showed a repeat episode of hematuria leading to anemia. His blood count showed a hemoglobin of 5.8 and hematocrit of 18.3. The patient states his catheter has been draining mostly thin red blood; however, it has been persistent. The patient has had multiple therapies for his radiation cystitis previously. He has undergone hyperbaric treatment several years ago as well as multiple episodes of alum irrigation. He has been on [place] in the past and at one point had discussed a cystectomy and diversion of urine due to his hematuria; however, the patient was too unhealthy to undergo this procedure. The patient states he has been leaking some around the catheter. He denies any significant clot passage through the catheter itself. The patient was admitted to the hospital for blood transfusions and urologic evaluation. PAST MEDICAL HISTORY: 1. Chronic kidney disease. 2. Hypertension. 3. Gastroesophageal reflux disease. 4. Depression. 5. Prostate cancer. PAST SURGICAL HISTORY: 1. Transrectal ultrasound-guided biopsy of the prostate. 2. Radiation therapy for prostate cancer. 3. Vocal cord surgery. 4. Transurethral resection of the prostate. 5. [place] teeth extraction. 6. Direct vision internal urethrotomy with placement of suprapubic tube. 7. Cystoscopy with clot irrigation under anesthesia 4 times. ALLERGIES: No known drug allergies. MEDICATIONS: Icar-C. SOCIAL HISTORY: Denies tobacco, alcohol, or illicit drug use. FAMILY HISTORY: Denies family history of malignancy. REVIEW OF SYSTEMS: A 12-point review of systems was performed with all pertinent positives and negatives as noted in HPI. PHYSICAL EXAMINATION: Vital Signs: Temperature 98.6, heart rate 69, blood pressure 159/61, oxygen saturation 99% on room air. General: No acute distress. Resting comfortably in bed. Alert and oriented x3. HEENT: Normocephalic, atraumatic. Pupils equal, round, reactive to light. Neck: Trachea midline with no palpable masses. Respiratory: Good respiratory effort without wheezing or rales. Cardiovascular: Regular rate and rhythm. No evidence of lower extremity edema. Abdomen: Soft, nontender, nondistended. No palpable masses. : Suprapubic tube in place with thin reddish urine. Suprapubic site has small amount of drainage around the catheter. No clots seen draining from the catheter. The patient has a normal phallus. Bilateral testicles palpated without asymmetry. Musculoskeletal: Moving all extremities. Skin: No skin lesions or rashes. Neurologic: Gross motor and sensory intact. LABORATORY DATA: White blood cell count 4.5, hemoglobin 7.6, hematocrit 23.7, platelets 287. Sodium 135, potassium 4.6, chloride 103, bicarb 18, BUN 38, creatinine 2.3, calcium 8.4. ASSESSMENT AND PLAN: Mr. Obrien is an 88-year-old with a history of prostate cancer status post external radiation, radiation cystitis, depression, gastroesophageal reflux disease, and chronic kidney disease stage 4, who presents for consultation regarding gross hematuria. 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 He has undergone multiple cystoscopies with clot evacuation and has had a suprapubic tube in place, which seems to be draining well currently. He states he has been having blood in his urine for as long as he can remember. He had previously undergone alum therapy as well as hyperbarics, and had previously considered a cystectomy. He states he was on the table for cystectomy before they canceled the procedure. The patient presented and had 2 units of packed red blood cells given. His hemoglobin and hematocrit are 7.6 and 23.7 today. He seemed to respond well to the blood. I irrigated his catheter this morning, and a small amount of clots were returned. The patient tolerated this well. Urine drained light pink after this. Discussed with him treatment options including observation as well as cystoscopy and fulguration of bleeding as well as consideration for infusion of alum. The patient has had multiple therapies in the past and currently is considering surgical intervention. I told him that he had this only last week, and he has re-presented. I told him it is unlikely to resolve it completely, but may allow for transitioning to irrigation through the catheter with both normal saline versus alum to see if this would help. The patient was made n.p.o. in preparation for possible surgery later today. If urine clears, would hold off and continue to monitor drainage. cc: Eric Davis MD MTDD
--- NOTE | 2019-03-07 01:22 | PROGRESS NOTE ---
DATE: 03/06/2019 SUBJECTIVE: The patient reports feeling okay. As per nursing staff, we were reported that this patient is taking his medications from home, he is not allowing us to see what he is taking. He refused to tell us if he is taking any aspirin or any other NSAID. OBJECTIVE: Vital Signs: Temperature 98 degrees, heart rate 84, respiratory rate 18, blood pressure 149/83. O2 saturation 99% on room air. General: This is a chronically ill appearing, 88-year-old, male, lying in bed, in no acute distress. Cardiovascular: S1, S2 heard. No murmurs, gallops, or rubs. Regular rate and rhythm. Respiratory: Clear bilaterally to auscultation. No work of breathing or using of accessory muscles. Abdomen: Soft, nontender to palpation. Bowel sounds present. No organomegaly. There is a suprapubic catheter noted. Neurological: Patient alert and oriented x3. Moves 4 extremities. LABORATORY DATA: Hemoglobin is 7.6. Creatinine is 2.3. ASSESSMENT AND PLAN: 1. Hemorrhagic anemia secondary to hemorrhagic cystitis from underlying malignancy. 2. Hypertension. 3. Chronic kidney disease. 4. Hyperkalemia. Patient has been transfused 2 units of blood. Hemoglobin is 7.6, I think this patient continues to bleed from underlying malignancy in the prostate. We have consulted Dr. Guthrie from Urology and will follow recommendations. As mentioned before, we are going to transfer 1 unit of blood. We will check CBC tomorrow. Patient is very reluctant to stay in the hospital. He said that he is going to leave the hospital whenever he is feeling fine. The patient has been also advised to not take any medication from outside the hospital and he needs to let us know what he has in his bottles of medicines. At this point, we will continue to monitor this patient closely. We will check CBC daily and we will go from there. cc: Javi Thurston MD
[2019-03-07] MEDS: PRILOSEC PO SCH ×2 (05:45→09:17)
[2019-03-07 05:57] LABS: BASO# 0.03 X1000 (0.0-0.2); BASO% 0.6 % (0.0-0.8); EOS# 0.37 X1000 (0.0-0.7); EOS% 7.8 % (0.0-10.0); HEMATOCRIT 27.7 % (42.0-52.0); HEMOGLOBIN 9.1 g/dL (14.0-18.0); IMM GRAN# 0.02 X1000 (0.0-0.04); IMM GRAN% 0.4 % (0.0-0.5); LYMPH# 1.26 X1000 (1.2-3.4); LYMPH% 26.6 % (20.5-51.1); MCH 30.5 PG (27-31); MCHC 32.9 g/dL (33-37); MONO# 0.62 X1000 (0.11-0.59); MONO% 13.1 % (1.7-9.3); MPV 8.8 FL (7.4-10.4); NEUT# 2.44 X1000 (1.4-6.5); NEUT% 51.5 % (42.2-75.2); PLT 283 X1000 (130-400); RBC 2.98 XMIL (4.7-6.1); RDW 14.9 % (11.5-14.5); WBC 4.74 X1000 (4.8-10.8)
[2019-03-07 06:07] LABS: ALBUMIN 2.9 g/dL (3.5-5.0); CALCIUM 8.4 mg/dL (8.8-10.2); CREATININE 1.8 mg/dL (0.7-1.2); PHOSPHORUS 3.3 mg/dL (2.7-4.5); POTASSIUM 4.5 mmol/L (3.5-5.1)
[2019-03-07] MEDS: DITROPAN PO SCH ×2 (09:17→20:41)
[2019-03-07] MEDS: ICAR-C PO SCH (09:17)
--- NOTE | 2019-03-07 09:38 | PROGRESS NOTE ---
DATE: 03/07/2019 SUBJECTIVE: No acute events overnight. The patient received another unit of packed red blood cells, and hemoglobin and hematocrit have responded well at 9.1 and 27.7. The patient's urine continues to be reddish, but seems to be a thin red-to-pink and draining efficiently. The patient states his catheter was flushed overnight with minimal clots. Again, flushed his catheter this morning, and retrieved no clots. He states the leakage around the catheter has improved. He denies any flank or abdominal pain. He says he was able to have a bowel movement yesterday. PHYSICAL EXAMINATION: Vital Signs: Temperature 98 degrees, heart rate 63, blood pressure 190/77, oxygen saturation 100% on room air. General: No acute distress. Resting comfortably in bed. Alert and oriented x3. Respiratory: Good respiratory effort without audible wheezing or rales. Abdomen: Soft, nontender, nondistended. : Suprapubic tube in place with no significant leakage around the catheter. Drainage is light pink with no clots seen in the bag or the tubing. Irrigated the catheter with only a small clot that returned. Urine remained light pink. Musculoskeletal: Moving all extremities. LABORATORY DATA: White blood cell count 4.7, hemoglobin 9.1, hematocrit 27.7, platelets 283,000. Sodium 133, potassium 4.5, chloride 103, bicarb 18, BUN 29, creatinine 1.8, glucose 98. ASSESSMENT AND PLAN: Mr. Obrien is an 88-year-old with history of chronic kidney disease, hypertension, gastroesophageal reflux disease, depression, and prostate cancer status post radiation, who has developed radiation cystitis, who presents in consultation regarding hematuria. The patient has undergone multiple therapies for his hematuria in the past, including hyperbaric, Alum, cystoscopy with clot evacuations, as well as consideration for a cystectomy. The patient's hematuria has persisted. On exam today, the patient has no clots in his urine. I was able to flush his catheter with just a small clot that returned, and the urine has remained light pink. I think the patient will have chronic hematuria unless we acid changer. Discussed with him the role of nephrostomy tube placement versus cystectomy versus another trial of hyperbarics. The patient is not a fan of hyperbarics, and due to his renal function, I am not sure that Alum would be the right decision for him to repeat. Clinically, he seems to be doing well as his hemoglobin and hematocrit have responded after blood transfusion, and is actually better than when he was discharged from the hospital. The patient has had persistent hematuria, and likely will continue for the time being. Will plan to talk with Dr. Guthrie regarding further management of his radiation cystitis from a urologic standpoint. The patient is hesitant to proceed with any those therapies. I offered him the opportunity to have his catheter changed for a bigger catheter and starting continuous irrigation versus undergoing cystoscopy and clot evacuation. I do not think the patient has a lot of clots, at least on flushing his catheter, and I think that this may just stir up more bleeding as it is the entirety of the bladder that is irritated and leading to the radiation changes. The patient would like to hold off any surgical intervention today. Will continue to monitor from a urologic standpoint. Please call with questions or concerns. cc: Eric Davis MD MTDD
[2019-03-07] MEDS: NORVASC PO SCH (11:30)
--- NOTE | 2019-03-07 17:17 | PROGRESS NOTE ---
DATE: 03/07/2019 INTERVAL HISTORY: The patient still with bloody urine but no clots this morning. The patient is relatively asymptomatic. No new complaints. No other acute events. REVIEW OF SYSTEMS: Twelve point review of systems negative except as per interval history. LABS: WBC 4.7, hemoglobin 9.1, improved from 7.6, hematocrit 37.7, also improved. Sodium 133, potassium 4.5, bicarb 18, BUN 29, creatinine 1.8. VITAL SIGNS: Temperature maximum 98.7 degrees, pulse 67, respirations 18, blood pressure 148/72, O2 saturation 100% on room air. PHYSICAL EXAMINATION: General: No acute distress. Vitals: As above. HEENT: Normocephalic, atraumatic. Moist mucous membranes. Neck: No cervical adenopathy. Cardiovascular: Regular rate and rhythm. No murmurs noted. Pulmonary: Clear to auscultation bilaterally. No wheezing, rales, or rhonchi. Abdomen: Soft, nontender, nondistended. Bowel sounds positive. Extremities: Peripheral pulses intact. No clubbing, cyanosis, or edema. : Suprapubic catheter in place. Urine is darkly bloody without clots at the time of my exam. Neurologic: Cranial nerves grossly intact. No focal deficits identified. Psychiatric: Normal mood and affect. Awake, alert, cooperative. Skin: No new rashes or lesions noted. No pallor noted currently. ASSESSMENT AND PLAN: 1. Acute blood loss anemia, hematuria, radiation cystitis. The patient with history of radiation cystitis and some episodes of bleeding since his treatment of radiation for prostate cancer in the past. Had significant anemia, down to 5.8 at one point. He has had to be transfused couple times with relatively appropriate increase. Up to 9.1 today after transfusion yesterday. Still with pretty bloody urine, although no clots today. Urology following and will see what they end up deciding to do. 2. Hyperkalemia, resolved. 3. Chronic kidney disease stage 3, bordering on 4. Some improvement in creatinine since admission, but likely more wandering baseline than true improvement. He has been essentially at his baseline the whole time. 4. Hyponatremia. Minimal decrease today, but still pretty mild. Will monitor, but no need for acute intervention. 5. Hypertension. Been pretty consistently elevated on this admission. We will start him on some Norvasc and monitor.
[2019-03-08 05:36] LABS: BASO# 0.04 X1000 (0.0-0.2); BASO% 0.7 % (0.0-0.8); EOS# 0.45 X1000 (0.0-0.7); HEMATOCRIT 27.6 % (42.0-52.0); HEMOGLOBIN 9.1 g/dL (14.0-18.0); IMM GRAN# 0.02 X1000 (0.0-0.04); IMM GRAN% 0.4 % (0.0-0.5); LYMPH# 1.31 X1000 (1.2-3.4); LYMPH% 23.2 % (20.5-51.1); MCH 30.4 PG (27-31); MCV 92.3 FL (81-99); MONO# 0.67 X1000 (0.11-0.59); MONO% 11.9 % (1.7-9.3); NEUT# 3.15 X1000 (1.4-6.5); NEUT% 55.8 % (42.2-75.2); PLT 299 X1000 (130-400); RBC 2.99 XMIL (4.7-6.1); RDW 14.6 % (11.5-14.5); WBC 5.64 X1000 (4.8-10.8)
[2019-03-08 05:53] LABS: ALBUMIN 3.2 g/dL (3.5-5.0); CALCIUM 8.3 mg/dL (8.8-10.2); CREATININE 1.9 mg/dL (0.7-1.2); PHOSPHORUS 3.5 mg/dL (2.7-4.5); POTASSIUM 4.4 mmol/L (3.5-5.1)
[2019-03-08] MEDS: PRILOSEC PO SCH (06:00)
[2019-03-08 08:43] VITALS: BP 158/70
[2019-03-08] MEDS: NORVASC PO SCH (09:45)
[2019-03-08] MEDS: DITROPAN PO SCH (09:45)
[2019-03-08] MEDS: ICAR-C PO SCH (09:45)
--- NOTE | 2019-03-08 23:56 | DISCHARGE SUMMARY ---
ADMISSION DATE: 03/05/2019 DISCHARGE DATE: 03/08/2019 PRIMARY CARE PHYSICIAN: Dr. Liu. ADMISSION DIAGNOSES: 1. Hemorrhagic anemia. 2. Hematuria secondary to probable hemorrhagic cystitis or from underlying malignancy. 3. Hypertension. 4. Chronic kidney disease stage 4. 5. Hyperkalemia. DISCHARGE DIAGNOSIS: 1. A acute blood-loss anemia, hematuria, radiation cystitis. 2. Hyperkalemia, resolved. 3. Chronic kidney disease stage 3 bordering on 4. 4. Hyponatremia. 5. Hypertension. SUMMARY OF FINDINGS: This is an 88-year-old male who presented after he had some routine blood work and was found to have an hemoglobin and hematocrit of 5.8 and 18 so he was admitted to get a transfusion and to be seen by urology so we consulted them. He received a total of 2 units of packed red blood cells and 1 unit of packed red blood cells. Hemoglobin and hematocrit is now up to 9.1 and 27.6 and no surgical intervention was done at this time as the patient wanted to hold off on any surgical intervention and so he was monitored from a urological standpoint and with the improvement since his packed red blood cells it is felt that he can safely be discharged home today. DISCHARGE MEDICATIONS: Will include Norvasc 5 mg p.o. b.i.d., Icar C 1 p.o. daily, lisinopril 10 mg p.o. at bedtime, omeprazole 20 mg p.o. daily and oxybutynin 5 mg p.o. b.i.d. FOLLOWUP: He will follow up with Urology, Dr. Guthrie in 1 week and call the office for an appointment and with his primary care physician in the next 1 to 2 weeks and call her office for an appointment. TIME SPENT: 35 minutes. Dictated by BAYRON Jackson for Javi Thurston MD Addendum: Patient seen and examined by myself. Agree with BAYRON note. It reflects my assessment and plan. Patient is being discharged in stable condition. Will be seen by Urology within a week. cc: MD Javi Shah MD [facility]
== END 2019-03-08 12:10 | disposition home or self-care (01) | DRG 812 ==
LOC: ED 14:35 → SUATTDRO 22:09 → 1N 22:09
PROVIDERS: ATTEND Internal Medicine